=== PATIENT | male | born 1950 | race Caucasian/White ===

== ENCOUNTER 2019-03-06 16:06 | Inpatient (IN) | payer MEDICARE, OTHER ==
[2019-03-06] MEDS ORDERED: Acetaminophen TAB* 325 MG PO ONE (16:25)
[2019-03-06] MEDS ORDERED: NS 0.9% 1000 ML** 1,000 ML IV ONE (16:25)
--- NOTE | 2019-03-06 16:32 | ED ---
Lower Extremity - HPI Summary HPI Summary: This patient is a 68 year old male with a history of diabetes, osteomyelitis, diabetic foot ulcer, mitral valve replacement, who is presenting to [facility] with a chief complaint of erythema around a diabetic ulcer in the right foot. The patient has a Hx of osteomyelitis s/p right big toe amputation 5 years ago. The patient has had the diabetic ulcer over the right 2nd toe for years 3 years but today has not felt well and has a fever in addition to the erythema dorsal side of his foot. The patient saw his rhia who recommended he come here when hearing of the fever. The patient has a surgical Hx of mitral valve replacement. - History of Current Complaint Chief Complaint: EDFever Stated Complaint: RT FOOT ULCER PER PT Time Seen by Provider: 03/06/19 16:21 Hx Obtained From: Patient Onset of Pain: Hours Pain Intensity: 0 Pain Scale Used: 0-10 Numeric Associated Signs And Symptoms: Positive: Swelling, Redness - Allergies/Home Medications Allergies/Adverse Reactions: Allergies Allergy/AdvReac Type Severity Reaction Status Date / Time peanut Allergy Severe Anaphylatic Verified 03/06/19 16:19 Shock rivaroxaban [From Xarelto] Allergy Severe Anaphylatic Verified 03/06/19 16:19 Shock ciprofloxacin Allergy Intermediate Edema Verified 03/06/19 16:19 terazosin Allergy Intermediate Rash Verified 03/06/19 16:19 Iodinated Contrast- Oral and Allergy Unknown Unknown Verified 03/06/19 16:19 IV Dye Reaction Details ENVIRONMENTAL/SEASONAL Allergy Congestion Uncoded 03/06/19 16:19 PMH/Surg Hx/FS Hx/Imm Hx Endocrine/Hematology History: Reports: Hx Blood Transfusions, Hx Diabetes Denies: Hx Anemia Comment Only: Hx Anticoagulant Therapy - unknown Cardiovascular History: Reports: Hx Angioplasty - BILAT LEGS, Hx Cardiomegaly, Hx Coronary Artery Disease, Hx Hypercholesterolemia, Hx Hypertension, Hx Peripheral Vascular Disease, Hx Valvular Heart Disease - VALVE REPLACEMENT 2011 , Other Cardiovascular Problems/Disorders - aortic valve replacement with bioprosthetic mitral valve. Denies: Hx Aneurysm, Hx Angina, Hx Auto Implanted Cardiovert Defib, Hx Cardiac Arrest, Hx Congenital Heart Disease, Hx Congestive Heart Failure, Hx Deep Vein Thrombosis, Hx Embolism, Hx Pacemaker/ICD Respiratory History: Reports: Hx Asthma - as a child, Hx Pneumonia - 1998, Hx Seasonal Allergies Denies: Hx Chronic Obstructive Pulmonary Disease (COPD), Hx Pulmonary Edema, Hx Pulmonary Embolism, Hx Sleep Apnea, Other Respiratory Problems/Disorders GI History: Reports: Other GI Disorders - Perirectal abscess Denies: Hx Jaundice History: Reports: Hx Acute Renal Failure, Hx Dialysis - at [facility], Other Problems/Disorders - DENIES PROSTATE PROBLEMS Denies: Hx Benign Prostatic Hyperplasia, Hx Chronic Renal Failure, Hx Kidney Infection, Hx Kidney Stones Sensory History: Reports: Hx Cataracts, Hx Contacts or Glasses - READING, Hx Vision Problem - retinopathy, Other Sensory Impairments - Neuropathy Denies: Hx Hearing Aid Opthamlomology History: Reports: Hx Cataracts, Hx Contacts or Glasses - READING , Hx Vision Problem - retinopathy, Other Sensory Impairments - Neuropathy Neurological History: Reports: Hx Dementia Denies: Other Neuro Impairments/Disorders Psychiatric History: Reports: Hx Anxiety - CONTROL WITH MED, Hx Depression - CONTROL WITH MED, Hx Post Traumatic Stress Disorder Denies: Hx Panic Disorder - Surgical History Surgery Procedure, Year, and Place: MITRAL SEGURA PORCINE VALVE REPLACEMENT 1.5T ONLY(MRI) - November 2011 AND MAR 2014 - PACER WIRES REMOVED - NO PACE MAKER ANGIOPLASTY BILAT LEGS - 2009 Lt CAROTID - ANGIOPLASTY Hx Anesthesia Reactions: No - Immunization History Date of Tetanus Vaccine: unsure Date of Influenza Vaccine: 2011 Infectious Disease History: No Infectious Disease History: Reports: Hx of Known/Suspected MRSA - RIGHT TOE Denies: Hx Tuberculosis, Traveled Outside the [place] in Last 30 Days - Social History Alcohol Use: Daily Alcohol Amount: 2/3 beers Substance Use Type: Reports: None Smoking Status (MU): Former Smoker Type: Cigarettes Amount Used/How Often: QUIT 25 YRS Have You Smoked in the Last Year: No Review of Systems Positive: Fever Positive: Edema - 2nd right toe Positive: Other - Erythema over Diabetic ulcer 2nd right toe. All Other Systems Reviewed And Are Negative: Yes Physical Exam - Summary Physical Exam Summary: Constitutional: Well-developed, Well-nourished, Alert. (-) Distressed Skin: Warm, Dry. Erythema to the dorsum of the right foot near the MTPs, ulceration to the plantar surface of second MTP HENT: Normocephalic; Atraumatic Eyes: Conjunctiva normal Neck: Musculoskeletal ROM normal neck. (-) JVD, (-) Stridor, (-) Nuchal rigidity Cardio: Rhythm regular, rate normal, Heart sounds normal; Intact distal pulses; Radial pulses are 2+ and symmetric. Pulmonary/Chest wall: Effort normal. (-) Respiratory distress, (-) Wheezes, (-) Rales Abd: Soft, (-) tenderness, (-) Distension, (-) Guarding, (-) Rebound Musculoskeletal: Fusiform swelling of the right second toe Lymph: (-) Cervical adenopathy Neuro: Alert, Oriented x3 Psych: Mood and affect Normal Triage Information Reviewed: Yes Vital Signs On Initial Exam: Initial Vitals Temp Pulse Resp BP Pulse Ox 101 F 87 16 134/85 97 03/06/19 16:09 03/06/19 16:09 03/06/19 16:09 03/06/19 16:09 03/06/19 16:09 Vital Signs Reviewed: Yes Diagnostics - Vital Signs Vital Signs Temp Pulse Resp BP Pulse Ox 03/06/19 16:09 101 F 87 16 134/85 97 - Laboratory Result Diagrams: 03/06/19 16:43 03/06/19 16:43 Lab Statement: Any lab studies that have been ordered have been reviewed, and results considered in the medical decision making process. - Radiology Foot Right XR Radiology Interpretation Completed By: Radiologist Summary of Radiographic Findings: 1. No fracture or osseous destruction. 2. Subluxed second MTP as above. 3. Status post first toe amputation to the level fo the first metatarsal. 4. Vascular calcifications. ED Provider has reviewed this report. CXR Radiology Interpretation Completed By: Radiologist Summary of Radiographic Findings: 1. No acute cardiopulmoany process by radiograph. 2. Stable cardiac silhouette status post aVR. ED Provider has reviewed this report. Re-Evaluation - Re-Evaluation First Eval Re-Evaluation Time: 17:05 Comment: Labs notable for hemoglobin of 6.9 from 10 prior. Patient denies any complaints including bleeding, fatigue, dark stools. Will send type and screen. We'll hold off on transfusion at this time. Second Eval Comment: XR w subluxed 2nd toe, likely chronic. Lower Extremity Course/Dx - Course Course Of Treatment: 68-year-old male with a history of diabetes, osteomyelitis of the right great toe s/p amputation, diabetic foot ulcer, endocarditis and mitral valve replacement, who presents with fever and concern over cellulitis of the right foot. On arrival to the emergency department, patient febrile. Otherwise well appearing. Check labs including blood cultures, CRP, x-rays of the chest, and urinalysis to assess for infection. Patient will be started on vancomycin for skin coverage. Patient has high risk given his valve replacement - Diagnoses Provider Diagnoses: Cellulitis, Fever, Osteomyelitis Discharge - Sign-Out/Discharge Documenting (check all that apply): Patient Departure - Admission Patient Received Moderate/Deep Sedation with Procedure: No - Discharge Plan Condition: Stable Disposition: ADMITTED TO [facility] Referrals: Joseph Rhoades MD [Primary Care Provider] - - Billing Disposition and Condition Condition: STABLE Disposition: Admitted to [facility] - Attestation Statements Document Initiated by Margo: Yes Documenting Scribe: Aidan Cody Provider For Whom Margo is Documenting (Include Credential): Juan Carlos Carrizales MD Scribe Attestation: Aidan Rojas scribed for Juan Carlos Carrizales MD on 03/06/19 at 1737. Scribe Documentation Reviewed: Yes Provider Attestation: The documentation as recorded by the Aidan yeboah accurately reflects the service I personally performed and the decisions made by Juan Carlos trevino MD Status of Scribe Document: Viewed
[2019-03-06 16:54] LABS: Hematocrit 22 % (42-52); Hemoglobin 6.9 g/dL (14.0-18.0); Mean Corpuscular HGB Conc 32 g/dL (31-36); Mean Corpuscular Hemoglobin 22 pg (27-31); Mean Corpuscular Volume 71 fL (80-94); Platelet Count 180 10^3/uL (150-450); Red Blood Count 3.08 10^6 /uL (4.18-5.48); Red Cell Distribution Width 18 % (10-15); White Blood Count 10.2 10^3/uL (3.5-10.8)
[2019-03-06 17:08] LABS: ALT 17 U/L (7-52); AST 21 U/L (13-39); Albumin/Globulin Ratio 1.4 (1-3); Alkaline Phosphatase 76 U/L (34-104); Anion Gap 9 mmol/L (2-11); BUN/Creatinine Ratio 17.1 (8-20); Blood Urea Nitrogen 26 mg/dL (6-24); C Reactive Protein 84.66 mg/L (<8.01); CO2 Carbon Dioxide 20 mmol/L (22-32); Calcium 9.1 mg/dL (8.6-10.3); Chloride 107 mmol/L (101-111); EGFR African American 55.1 (>60); EGFR Non-African American 45.6 (>60); Globulin 2.9 g/dL (2-4); Glucose 115 mg/dL (70-100); Potassium 4.1 mmol/L (3.5-5.0); Sodium 136 mmol/L (135-145); Total Protein 6.9 g/dL (6.4-8.9)
[2019-03-06 17:24] LABS: ABS Lymphocytes 0.9 10^3/ul (1.0-4.8); ABS Monocytes 0.9 10^3/ul (0-0.8); ABS Neutrophils 8.4 10^3/ul (1.5-7.7); Lymphocyte % 8.4 %; Microcytosis 1+; Tear Drop Cells 1+
[2019-03-06 18:10] LABS: INR 2.71 (0.82-1.09)
[2019-03-06] MEDS ORDERED: Piperacillin/Tazobac ADVAN(*) 3.375 GM in NS 0.9% 100 ML* 100 ML IVPB ONE (18:20)
[2019-03-06] MEDS ORDERED: Thiamine INJ* 100 MG/ML 2 ML VIAL IM ONE (18:25)
[2019-03-06] MEDS ORDERED: Vancomycin(*) 1,000 MG - ED ONCE IVPB STA ×2 (18:41)
[2019-03-06 18:53] LABS: Urine Appearance Clear; Urine Bacteria Absent (Absent); Urine Bilirubin Negative (Negative); Urine Blood Negative (Negative); Urine Color Yellow; Urine Glucose Negative (Negative); Urine Ketones Negative (Negative); Urine Nitrite Negative (Negative); Urine Protein 1+(30 mg/dL) (Negative); Urine Red Blood Cell Absent (Absent); Urine Specific Gravity 1.013 (1.010-1.030); Urine Urobilinogen Negative (Negative); Urine White Blood Cell Trace(0-5/hpf) (Absent)
[2019-03-06] MEDS ORDERED: Zosyn per Pharmacy* NOTE FOLLOW UP SCH (19:00)
[2019-03-06] MEDS ORDERED: Vancomycin per Pharmacy* NOTE FOLLOW UP SCH (19:00)
[2019-03-06] MEDS ORDERED: LORazepam TAB(*) 1 MG PO SCH (19:00)
[2019-03-06 19:02] LABS: % Iron Saturation 4 % (15-55); Iron 20 ug/dL (50-212); Total Iron Binding Capacity 465 mcg/dL (250-450); Transferrin 332 mg/dL (203-362)
[2019-03-06 19:24] LABS: Ferritin 8.5 ng/mL (24-336)
[2019-03-06 19:28] LABS: Folate > 20.00 ng/mL (>3.99)
[2019-03-06] MEDS: Folic Acid TAB* 1 MG PO SCH (20:28)
--- NOTE | 2019-03-06 20:33 | HP ---
CC: Dr. Rhoades; Dr. Covarrubias * HISTORY AND PHYSICAL: DATE OF ADMISSION: 03/06/19 PROVIDER: Vanessa Diaz NP. PRIMARY CARE PROVIDER: Dr. Rhoades. ATTENDING PHYSICIAN WHILE IN THE HOSPITAL: Dr. Foster * (dictated by Vanessa Diaz NP). CHIEF COMPLAINT: 1. Fever. 2. Right foot pain. HISTORY OF PRESENT ILLNESS: Mr. Golden is a 68-year-old male with a past medical history significant for type 2 diabetes, hyperlipidemia, hypertension, depression, obesity, history of atrial fibrillation, history of osteomyelitis on the right great toe, anemia, history of left CVA, history of endocarditis, and history of GI bleed from Xarelto who presented to the emergency room with complaints of increased pain in the right foot that he reports started yesterday and fevers that started this morning. The patient reports that he was feeling in his usual state of health and today he had 2 beers to drink and felt fatigued, so he returned home stating that he just did not feel well. He had an open ulceration noted to the right foot that has been chronic for him for several years for which he follows with a demographic analyst as an outpatient. He saw his demographic analyst today who recommended he come to the emergency room for further evaluation due to increased pain, erythema to the right foot. While in the emergency room, the patient had routine lab work drawn. He was found to have a fever of 101 and hemoglobin and hematocrit of 6.9 and 22. Due to these findings, we were asked to see and evaluate the patient for admission. PAST MEDICAL HISTORY: Significant for: 1. Type 2 diabetes. 2. Neuropathy. 3. Hyperlipidemia. 4. Hypertension. 5. Depression. 6. Diabetes. 7. Peripheral vascular disease. 8. History of anemia. 9. History of left-sided CVA. 10. History of atrial fibrillation, status post cardioversion x2. 11. History of osteomyelitis to the right great toe, status post amputation. 12. History of GI bleed from Xarelto. PAST SURGICAL HISTORY: 1. Mitral valve repair. 2. Removal of infected pacer wires. 3. Carotid endarterectomy. 4. Tonsillectomy. 5. Right great toe amputation. HOME MEDICATIONS: 1. Ferrous sulfate 65 mg p.o. q.p.m. 2. Tamsulosin 0.4 q.p.m. 3. Sertraline 150 mg p.o. q.a.m. 4. Pantoprazole 40 mg p.o. q.a.m. 5. Magnesium oxide 400 mg p.o. b.i.d. 6. Warfarin 5 mg Friday, Friday, Friday, and Friday. 7. Lisinopril 10 mg p.o. q.p.m. 8. Atorvastatin 20 mg p.o. q.p.m. 9. Ascorbic acid 500 mg p.o. q.p.m. ALLERGIES: Allergy to PEANUTS, XARELTO, CIPROFLOXACIN, TERAZOSIN, IV CONTRAST, ENVIRONMENTAL ALLERGIES. FAMILY HISTORY: Father at the age of 92 from CHF. Mother is alive at the age of 93 with no significant medical history. Father with diabetes. Sister with lung cancer. SOCIAL HISTORY: The patient denies any tobacco use. He does report drinking 8 beers per day. Denies any illicit drug use. He is . He lives with his . Surrogate decision maker in the event he is unable to make his own decisions is his . He is a full code. He does ambulate with a cane. REVIEW OF SYSTEMS: He does report fever. Denies any unintended weight loss. Denies any chest pain or edema. Denies any cough or hemoptysis. He does report shortness of breath with exertion x1 month and increased fatigue. Denies any nausea, vomiting, diarrhea, or abdominal pain. Denies any black tarry stools. Denies any vomiting of blood. Denies any gross hematuria or dysuria. Denies any weakness, sensory loss, visual complaints, dysphagia, arthralgias, myalgias. He does report a chronic diabetic ulcer to the right plantar aspect of his foot at the base of the second toe. Denies any psychosis or anxiety. PHYSICAL EXAMINATION GENERAL: At this time, Mr. Golden is alert and oriented, he is well-developed, well- nourished male, resting on the stretcher in the emergency room. He is in no acute distress. VITAL SIGNS: Temp is 100.0, pulse is 80, respirations 16, O2 saturation 100% on room air, blood pressure 134/85. HEENT: Head is atraumatic and normocephalic. Eyes: EOMs are intact. Sclerae anicteric and not pale. Oral mucosa appears to be moist. Face is flushed. NECK: Supple. LUNGS: Clear to auscultation bilaterally. No wheezes, rales, or rhonchi. CARDIAC: S1, S2. Regular rate and rhythm. ABDOMEN: Obese, soft, nontender. Bowel sounds are present x4. EXTREMITIES: He is able to move all 4 extremities. There is no clubbing or cyanosis. There is no edema. SKIN: He does have a small ulceration noted to the plantar aspect of the right foot at the base of the great toe without drainage. Surrounding skin with erythema and mild erythema noted to the right lower leg. DIAGNOSTIC STUDIES/LAB DATA: WBCs are 10.2, RBCs 3.08, hemoglobin 6.9, hematocrit was 22, platelet count was 180. INR was 2.71. Sodium 136, potassium 4.1, chloride 107, carbon dioxide was 20, anion gap was 9, BUN was 26 , creatinine 1.52, lactic acid was 1.0, glucose 115, calcium 9.1. ASTs were 21 , ALTs were 17, alkaline phosphatase was 76. C-reactive protein was 84.66. He had a chest x-ray, radiologist's impression: No acute cardiopulmonary process. Stable cardiac silhouette, status post valve replacement. He had a right foot x- ray, no fracture or osseous destruction, subluxed second MTP, status post first toe amputation at the level of the first metatarsal, vascular calcification. ASSESSMENT AND PLAN: Mr. Golden is a 68-year-old male with a past medical history significant for type 2 diabetes; neuropathy; hypertension; hyperlipidemia; depression; obesity; peripheral vascular disease; history of anemia; history of atrial fib, status post cardioversion; left-sided cerebrovascular accident; history of osteomyelitis, status post right great toe amputation; history of GI bleed from Xarelto, who presented with fever and cellulitis to his right foot and lower leg. He will be admitted inpatient for: 1. Cellulitis. The patient was given vancomycin in the emergency room. I will continue vancomycin and add Zosyn as per pharmacy dosing. Blood cultures are currently pending. I will also get a wound culture. He was febrile on admission to the emergency room with a temperature of 101. We will continue to monitor his fever throughout the hospitalization and treat as needed with Tylenol. May need to consider MRI of the right foot as this has been a nonhealing ulcer for approximately 2 years. If he does have osteomyelitis, we will need to consider consult from Orthopedics and Infectious disease. 2. Anemia. The patient does have a history of anemia. I will add iron, TIBC, ferritin, folate, and B12 to his current lab work, which is currently pending. I will get a stool for occult to look for acute source of bleeding. I am going to hold his Coumadin this evening due to his H and H being 6.9 and 22. We will continue to monitor. I will give him 1 unit of packed red blood cells he does have a history of mitral valve replacement, atrial fibrillation, and has been symptomatic with shortness of breath with exertion and increased fatigue. 3. Hypertension. We will continue lisinopril 10 mg p.o. daily. 4. Hyperlipidemia. We will continue 20 mg of atorvastatin as previously prescribed. 5. Gastroesophageal reflux disease. He will continue on pantoprazole 40 mg p.o. q.a.m. 6. Depression. He will continue on sertraline 150 mg p.o. q.a.m. 7. Chronic kidney disease. We will continue to monitor his BUN and creatinine , he is at baseline since 2013 with a creatinine of 1.52. We will avoid further nephrotoxic medications. 8. FEN. He can have a heart-healthy, caffeine okay diet. 9. Code status. He is a full code. 10. DVT prophylaxis. The patient does take Coumadin. I will hold Coumadin in this evening as the patient does have an H and H of 6.9 and 22 and concern for bleeding. 11. Alcohol abuse. The patient does report drinking 8 [address] him on [facility] protocol. He will also continue with folic acid, vitamin B12 and a multivitamin and can have Ativan p.o. as needed for withdrawal symptoms. TIME SPENT: Time spent on this admission was approximately 60 minutes, greater than half that time was spent at the bedside reviewing the events leading thus far to this hospitalization, performing the physical exam, and reviewing my plan of care. I have discussed this with my attending, Dr. Foster; she is in agreement with my plan. VANESSA DIAZ, CENTRAL SERVICE TECHNICIAN [id number]/[facility] #: [id number] CINDI
[2019-03-06] MEDS: ZOSYN 3.375 GM Q8H per EXTENDED INFUSION IVPB SCH ×2 (23:58)
--- NOTE | 2019-03-07 02:58 | PN ---
Hospitalist Progress Note Date of Service: 03/07/19 HOSPITALIST ADDENDUM Called by RN because patient had 8 beats of Vtach, asymptomatic. Electrolytes were normal on admission. Will continue to monitor on Telemetry.
[2019-03-07 07:41] LABS: INR 2.56 (0.82-1.09)
[2019-03-07 07:45] LABS: Hematocrit 20 % (42-52); Hemoglobin 6.4 g/dL (14.0-18.0); Mean Corpuscular HGB Conc 32 g/dL (31-36); Mean Corpuscular Hemoglobin 23 pg (27-31); Mean Corpuscular Volume 72 fL (80-94); Mean Platelet Volume 7.9 fL (7.4-10.4); Platelet Count 166 10^3/uL (150-450); Red Blood Count 2.82 10^6 /uL (4.18-5.48); Red Cell Distribution Width 18 % (10-15); White Blood Count 8.6 10^3/uL (3.5-10.8)
[2019-03-07 07:55] LABS: BUN/Creatinine Ratio 17.2 (8-20); Calcium 8.7 mg/dL (8.6-10.3); EGFR African American 58.2 (>60); EGFR Non-African American 48.1 (>60); Magnesium 1.7 mg/dL (1.9-2.7)
[2019-03-07 08:04] LABS: ABS Lymphocytes 0.9 10^3/ul (1.0-4.8); ABS Monocytes 0.9 10^3/ul (0-0.8); ABS Neutrophils 6.7 10^3/ul (1.5-7.7); Eosinophil % 0.1 %; Lymphocyte % 10.2 %
[2019-03-07] MEDS: Multivitamins/Minerals TAB PO SCH (08:18)
[2019-03-07] MEDS: Folic Acid TAB* 1 MG PO SCH (08:18)
[2019-03-07] MEDS: Magnesium Oxide TAB* 400 MG PO SCH ×2 (08:18→21:37)
[2019-03-07] MEDS: Thiamine TAB* 100 MG TAB PO SCH (08:18)
[2019-03-07] MEDS: Pantoprazole TAB * 40 MG TAB PO SCH (08:19)
[2019-03-07] MEDS: Vancomycin(*) 1,000 MG in NS 0.9% 250 ML* 250 ML IVPB SCH ×2 (08:19→21:39)
[2019-03-07] MEDS: Sertraline* 50 MG TAB PO SCH (08:19)
[2019-03-07] MEDS: ZOSYN 3.375 GM Q8H per EXTENDED INFUSION IVPB SCH ×6 (08:26→19:43)
[2019-03-07 08:56] LABS: Hematocrit for Retic CNT 21 % (42-52); Immature Retic Fraction 0.51; RBC Retic Count 2.84 10^6/uL (4.18-5.48)
[2019-03-07] MEDS ORDERED: Magnesium Sulfate 2 GM IV* 2 GM/50 ML BAG IVPB ONE (10:52)
[2019-03-07] MEDS: Dronedarone TAB* 400 MG PO SCH ×2 (12:35→21:37)
[2019-03-07] MEDS: Warfarin TAB(*) 5 MG PO SCH (16:29)
[2019-03-07] MEDS ORDERED: Warfarin TAB(*) 2.5 MG PO SCH (17:00)
[2019-03-07] MEDS: Atorvastatin* 20 MG TAB PO SCH (17:50)
[2019-03-07] MEDS: Tamsulosin CAP* 0.4 MG PO SCH (17:50)
[2019-03-07] MEDS: Lisinopril TAB* 10 MG PO SCH (17:50)
[2019-03-08] MEDS: ZOSYN 3.375 GM Q8H per EXTENDED INFUSION IVPB SCH ×6 (02:25→17:18)
[2019-03-08 05:24] LABS: INR 2.12 (0.82-1.09)
[2019-03-08 05:28] LABS: ABS Eosinophils 0.1 10^3/ul (0-0.6); ABS Lymphocytes 0.8 10^3/ul (1.0-4.8); ABS Monocytes 0.8 10^3/ul (0-0.8); Eosinophil % 0.6 %; Hematocrit 26 % (42-52); Hemoglobin 8.1 g/dL (14.0-18.0); Lymphocyte % 9.5 %; Mean Corpuscular HGB Conc 32 g/dL (31-36); Mean Corpuscular Hemoglobin 23 pg (27-31); Mean Corpuscular Volume 74 fL (80-94); Mean Platelet Volume 8.3 fL (7.4-10.4); Platelet Count 165 10^3/uL (150-450); Red Blood Count 3.47 10^6 /uL (4.18-5.48); Red Cell Distribution Width 19 % (10-15); White Blood Count 8.7 10^3/uL (3.5-10.8)
[2019-03-08 05:38] LABS: BUN/Creatinine Ratio 15.9 (8-20); C Reactive Protein 130.02 mg/L (<8.01); Calcium 8.9 mg/dL (8.6-10.3); EGFR African American 61.6 (>60); EGFR Non-African American 50.9 (>60); Potassium 4.1 mmol/L (3.5-5.0)
[2019-03-08] MEDS ORDERED: Vancomycin Trough Check NOTE FOLLOW UP ONE (08:30)
--- NOTE | 2019-03-08 08:58 | PN ---
Subjective - Subjective Reason for Note: Progress Note History: Henrique Paniagua presented with acute cellulitis right foot, acute iron deficient anemia. He has received x 2 PRBCs and is on parenteral antibacterials - vancomycin and zosyn. He tolerated the tranfusion. He had an episode of 8 beats of non-sustained VT. He is feeling fine this morning. He denies any pain, fevers or other symptoms. 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 Diabetic retinopathy (Chronic) E11.319 Essential hypertension (Chronic) I10 History of SBE (subacute bacterial endocarditis) (Chronic) Z86.79 Hyperlipidemia (Chronic) E78.5 Mitral valve replacement xenograft (Chronic) Peripheral vascular disease (Chronic) I73.9 Current Medications: Current Medications Acetaminophen (Tylenol Tab*) 650 mg PO Q4H PRN PRN Reason: FEVER/PAIN Ascorbic Acid (Vitamin C Tab*) 250 mg PO EVERY OTHER DAY [facility] Atorvastatin Calcium (Lipitor*) 20 mg PO QPM [facility] Last Admin: 03/07/19 17:50 Dose: 20 mg Dronedarone (Multaq Tab*) 400 mg PO BID WITH MEALS [facility] Last Admin: 03/07/19 21:37 Dose: 400 mg Ferrous Sulfate (Ferrous Sulfate Tab*) 325 mg PO EVERY OTHER DAY [facility] Folic Acid (Folvite Tab*) 1 mg PO DAILY [facility] Last Admin: 03/07/19 08:18 Dose: 1 mg Vancomycin HCl 1,000 mg/ (Sodium Chloride) 250 mls @ 166.667 mls/hr IVPB Q12H [facility] Last Admin: 03/07/19 21:39 Dose: 166.667 mls/hr Piperacillin Sod/Tazobactam (Sod 3.375 gm/ Sodium Chloride) 100 mls @ 25 mls/ hr IVPB Q8H [facility] Last Admin: 03/08/19 02:25 Dose: 25 mls/hr Lisinopril (Prinivil Tab*) 10 mg PO QPM [facility] Last Admin: 03/07/19 17:50 Dose: 10 mg Lorazepam (Ativan Tab(*)) 0 - 6 mg PO .PER [facility] PROTOCOL [facility]; Protocol Magnesium Oxide (Magox 400 Tab*) 400 mg PO BID [facility] Last Admin: 03/07/19 21:37 Dose: 400 mg Multivitamins/Minerals (Theragran/Minerals Tab*) 1 tab PO DAILY [facility] Last Admin: 03/07/19 08:18 Dose: 1 tab Pantoprazole Sodium (Protonix Tab*) 40 mg PO QAM [facility] Last Admin: 03/07/19 08:19 Dose: 40 mg Pharmacy Consult (Vancomycin Per Pharmacy*) 1 note FOLLOW UP .VANC PER PHARMACY [facility]; Protocol Pharmacy Consult (Zosyn Per Pharmacy*) 1 note FOLLOW UP .ZOSYN PER PHARMACY [facility] Sertraline HCl (Zoloft*) [facility] [place] [facility] Last Admin: 03/07/19 08:19 Dose: 150 mg Tamsulosin HCl (Flomax Cap*) 0.4 mg PO QPM [facility] Last Admin: 03/07/19 17:50 Dose: 0.4 mg Thiamine HCl (Vitamin B-1 Tab*) 100 mg PO DAILY [facility] Last Admin: 03/07/19 08:18 Dose: 100 mg Warfarin Sodium (Coumadin Tab(*)) 5 mg PO [id number]@1700 [facility]; Protocol Last Admin: 03/07/19 16:29 Dose: Not Given Warfarin Sodium (Coumadin Tab(*)) 2.5 mg PO [email or web address] [facility] Last Admin: 03/07/19 17:50 Dose: 2.5 mg Home Medications: Home Medications Medication Instructions Recorded Confirmed Type Lisinopril 10 mg PO QPM 04/09/13 03/06/19 History Pantoprazole TAB * [Protonix TAB 40 mg PO QAM 04/09/13 03/06/19 History (NF)] Sertraline HCl 150 mg PO QAM 04/09/13 03/06/19 History Atorvastatin* [Lipitor 40 MG*] 20 mg PO QPM 07/21/13 03/06/19 History Ascorbic Acid TAB* [Vitamin C 500 mg PO QPM 01/22/14 03/06/19 History TAB*] Ferrous Sulfate [Iron] 65 mg PO QPM 08/03/14 03/06/19 History Magnesium Oxide [Magnesium Oxide-] 400 mg PO BID 08/03/14 03/06/19 History Tamsulosin CAP* [Flomax CAP*] 0.4 mg PO QPM 08/03/14 03/06/19 History Warfarin Sodium 5 mg PO SUTUWEFR 08/03/14 03/06/19 History Allergies: Allergies Allergy/AdvReac Type Severity Reaction Status Date / Time peanut Allergy Severe Anaphylatic Verified 03/06/19 16:19 Shock rivaroxaban [From Xarelto] Allergy Severe Anaphylatic Verified 03/06/19 16:19 Shock ciprofloxacin Allergy Intermediate Edema Verified 03/06/19 16:19 terazosin Allergy Intermediate Rash Verified 03/06/19 16:19 Iodinated Contrast- Oral and Allergy Unknown Unknown Verified 03/06/19 16:19 IV Dye Reaction Details ENVIRONMENTAL/SEASONAL Allergy Congestion Uncoded 03/06/19 16:19 Objective - Vital Signs Vital Signs: Vital Signs 03/07/19 03/07/19 03/07/19 10:00 12:00 14:00 Temperature 97.6 F 98.6 F 98.7 F Pulse Rate 88 76 73 Respiratory 30 20 26 Rate Blood Pressure 154/48 150/50 134/37 (mmHg) O2 Sat by Pulse 100 100 99 Oximetry 03/07/19 03/07/19 03/07/19 16:00 18:30 19:50 Temperature 98 F 98.9 F 98.1 F Pulse Rate 73 70 70 Respiratory 16 24 20 Rate Blood Pressure 154/55 147/63 153/43 (mmHg) O2 Sat by Pulse 98 100 98 Oximetry 03/07/19 03/07/19 03/07/19 20:00 22:00 23:00 Temperature 98.6 F 98.7 F 98.3 F Pulse Rate 71 70 70 Respiratory 20 24 20 Rate Blood Pressure 150/45 155/46 137/45 (mmHg) O2 Sat by Pulse 99 98 97 Oximetry 03/08/19 03/08/19 03/08/19 02:59 07:14 07:25 Temperature 97.0 F 98 F Pulse Rate 67 77 Respiratory 16 20 Rate Blood Pressure 155/49 176/55 150/56 (mmHg) O2 Sat by Pulse 97 99 Oximetry 03/08/19 07:31 Temperature Pulse Rate Respiratory 20 Rate Blood Pressure (mmHg) O2 Sat by Pulse Oximetry - Intake and Output Intake and Output: Intake & Output 03/05/19 03/06/19 03/07/19 03/08/19 11:59 11:59 11:59 11:59 Intake Total 950 3415 Balance 950 3415 Weight 195 lb 1.6 oz Intake: IV Fluids 964 ABX - VANCOMYCIN 250 ABX - ZOSYN 100 PRBC 614 IVPB 350 651 ABX - VANCOMYCIN 250 250 ABX - ZOSYN 100 100 PRBC 301 Oral 600 1800 Other: Estimated Void Small Medium # Bowel Movements 1 1 Estimated Stool Amount Small Large # Voids 4 0 ADLs: Meal Record Start: 03/06/19 19: 20 Freq: DAILY@0900,1400,1800 Status: Active Protocol: Created 03/06/19 19:20 System (Rec: 03/06/19 19:20 System MED-M19) Document 03/07/19 09:00 [id number] (Rec: 03/07/19 16:07 [id number] MED-C09) Document 03/07/19 14:00 [id number] (Rec: 03/07/19 16:09 [id number] MED-C09) Document 03/07/19 18:00 [id number] (Rec: 03/07/19 20:57 [id number] MED-C07) Intake and Output Start: 03/06/19 16: 11 Freq: Status: Active Protocol: Created 03/06/19 16:11 System (Rec: 03/06/19 16:11 System ED-C24) Intake and Output Start: 03/06/19 19: 20 Freq: DAILY@0600,1400,2200 Status: Active Protocol: Created 03/06/19 19:20 System (Rec: 03/06/19 19:20 System MED-M19) Document 03/07/19 05:59 [id number] (Rec: 03/07/19 06:01 [id number] MED-C09) Document 03/07/19 14:00 [id number] (Rec: 03/07/19 16:09 [id number] MED-C09) Document 03/07/19 22:00 [id number] (Rec: 03/07/19 22:34 [id number] MED-C07) Document 03/08/19 05:51 [id number] (Rec: 03/08/19 05:52 [id number] MED-C09) Document 03/08/19 07:27 [id number] (Rec: 03/08/19 07:27 [id number] MED-M22) - Physical Exam General Physical Exam Comment: He is warm and well perfused. He is hemodynamically stable. He has no stigmata of infective endocarditis - he has one distal splinter hemorrhage right 4th finger nail - looks old. He has no Osler nodes or Lowe spots. Right foot - great toe amputated. He has erythema and swelling 2nd toe. The cellulitis has receeded from the inked margin. He has eschar and callous over the 2nd metatarsal head - this may be covering an ulcer. General: No Cyanosis, Yes Anemia, No Jaundice, No Clubbing Skin: Normal: Rash Lungs and Chest: Yes: Chest Expansion Full, Chest Expansion Symetrica, Percussion Note Resonant, Vessicular Breath Sounds. No: Crackles, Wheezes Heart Rate and Rhythm: Regular JVP: Not Elevated Additional Cardiovascular: Yes: Normal Heart Sounds. No: Heart Murmur - S3, Pedal Edema Abdominal Exam: Yes: Soft, Bowel Sounds Present. No: Distention, Abdominal Mass , Hepatomegaly, Abdominal Tenderness, Guarding, Rebound Tenderness - Extremities Cranial Nerves II-XII Intact: Yes Limbs: Normal Power, Normal Tone Results - Results Lab Results: Laboratory Results - last 24 hr 03/06/19 03/07/19 03/07/19 16:43 07:28 07:28 WBC 8.6 RBC 2.82 L RBC (Retic) 2.84 L Hgb 6.4 L* Hct 20 L HCT (Retic) 21 L MCV 72 L MCH 23 L MCHC 32 RDW 18 H Plt Count 166 MPV 7.9 Neut % (Auto) 78.2 Lymph % (Auto) 10.2 [place] % (Auto) 11.0 Eos % (Auto) 0.1 Baso % (Auto) 0.5 Absolute Neuts (auto) 6.7 Absolute Lymphs (auto) 0.9 L Absolute Monos (auto) 0.9 H Absolute Eos (auto) 0.0 Absolute Basos (auto) 0.0 Absolute Nucleated RBC 0.0 Nucleated RBC % 0.0 Retic Count, Calc 2.1 H Corrected Retic Count 1.0 Retic Shift Factor 2.0 Retic Production Index 0.50 Immature Retic Fraction 0.51 Mean Retic Volume 100.6 INR (Anticoag Therapy) Sodium Potassium Chloride Carbon Dioxide Anion Gap BUN Creatinine Est GFR ( Amer) Est GFR (Non-Af Amer) BUN/Creatinine Ratio Glucose Hemoglobin A1c 7.2 H Calcium C-Reactive Protein Blood Type O Positive Antibody Screen Negative Crossmatch See Detail 03/08/19 03/08/19 03/08/19 04:44 04:44 04:44 WBC 8.7 RBC 3.47 L RBC (Retic) Hgb 8.1 L Hct 26 L HCT (Retic) MCV 74 L MCH 23 L MCHC 32 RDW 19 H Plt Count 165 MPV 8.3 Neut % (Auto) 80.3 Lymph % (Auto) 9.5 [place] % (Auto) 9.2 Eos % (Auto) 0.6 Baso % (Auto) 0.4 Absolute Neuts (auto) 7.0 Absolute Lymphs (auto) 0.8 L Absolute Monos (auto) 0.8 Absolute Eos (auto) 0.1 Absolute Basos (auto) 0.0 Absolute Nucleated RBC 0.0 Nucleated RBC % 0.0 Retic Count, Calc Corrected Retic Count Retic Shift Factor Retic Production Index Immature Retic Fraction Mean Retic Volume INR (Anticoag Therapy) 2.12 H Sodium 140 Potassium 4.1 Chloride 111 Carbon Dioxide 22 Anion Gap 7 BUN 22 Creatinine 1.38 H Est GFR ( Amer) 61.6 Est GFR (Non-Af Amer) 50.9 BUN/Creatinine Ratio 15.9 Glucose 156 H Hemoglobin A1c Calcium 8.9 C-Reactive Protein 130.02 H Blood Type Antibody Screen Crossmatch Radiology Results: Patient Name: HENRIQUE PANIAGUA Medical Record#: [id number] Ordering Physician: Juan Carlos Carrizales MD Acct.#: [id number] : 1950 Age: 68 Sex: M Location: EMERGENCY DEPARTMENT Exam Date: 03/06/19 1635 ADM Status: REG ER Order Information: FOOT RIGHT 3+ VWS Accession Number: [id number] CPT: 67596 INDICATION: Fever. Remote right first toe amputation.. TECHNIQUE: 3 views of the right foot were obtained. FINDINGS: Postoperative changes are related to amputation of the first right toe to the level of the mid first metatarsal. Aside from vascular calcifications, the soft tissues are grossly unremarkable. The bones are osteopenic. No acute fracture or osseous destruction is identified. There is a calcaneal plantar enthesophyte. The second metatarsophalangeal joint is subluxed with dorsal displacement of the proximal phalanx. IMPRESSION: 1. No fracture or osseous destruction. 2. Subluxed second MTP as above. 3. Status post first toe amputation to the level of the first metatarsal. 4. Vascular calcifications. <Electronically signed by Tyree Muro MD in [place]> 03/06/191725 Dictated By: Tyree Muro MD Dictated Date/Time: 03/06/191725 Transcribed Date/Time: 03/06/191718 Copy to: Patient Name: HENRIQUE PANIAGUA Medical Record#: [id number] Ordering Physician: Juan Carlos Carrizales MD Acct.#: [id number] : 1950 Age: 68 Sex: M Location: EMERGENCY DEPARTMENT Exam Date: 03/06/191624 ADM Status: REG ER Order Information: CHEST PA & LAT 2 VWS Accession Number: [id number] CPT: 60686 INDICATION: Fever COMPARISON: October 17, 2015 chest radiograph TECHNIQUE: Dual-energy PA and lateral views of the chest were obtained. FINDINGS: The lungs are clear. There is no pleural effusion. The cardiomediastinal silhouette is within normal limits status post midline sternotomy and aVR. The upper abdominal contents are normal. Osseous structures are unremarkable. IMPRESSION: 1. No acute cardiopulmonary process by radiograph. 2. Stable cardiac silhouette status post aVR. <Electronically signed by Tyree Muro MD in [place]> 03/06/191718 Dictated By: Tyree Muro MD Dictated Date/Time: 03/06/191718 Transcribed Date/Time: 03/06/191715 Copy to: CC:Joseph Rhoades MD; Juan Carlos Carrizales MD Imaging - [facility] Imaging - [facility] Imaging - [facility] [address] [place] [id number] ph [phone] ph ([phone]) ph ([phone]) Assessment - Problem List Assessment: Patient Problems Cellulitis of foot, right (Acute) Non-sustained ventricular tachycardia (Acute) Alcohol dependence (Chronic) Atrial fibrillation (Chronic) Cerebrovascular disease (Chronic) Depressive disorder (Chronic) Diabetes mellitus type 2 (Chronic) Diabetic foot ulcer (Chronic) Diabetic peripheral neuropathy (Chronic) Diabetic renal disease (Chronic) Diabetic retinopathy (Chronic) Essential hypertension (Chronic) History of SBE (subacute bacterial endocarditis) (Chronic) Hyperlipidemia (Chronic) Mitral valve replacement xenograft (Chronic) Peripheral vascular disease (Chronic) Plan: Cellulitis of foot, right (Acute) This appears to be improving - the CRP lags behind the clinical improvement. Dr. Amelie Colin ordered an MRI to rule out osteomyelitis. There is a concern with his prior history of infective endocarditis that this may be a complicating problem. However, after 24 hours his blood cultures are negative. He has no physical signs of infective endocarditis. Non-sustained ventricular tachycardia (Acute) This was a single episode. I will discontinue his telemetry monitoring and watch his electrolytes. I will check a 12 lead EKG Alcohol dependence (Chronic) ongoing issue - I am concerned to watch for withdrawal Atrial fibrillation (Chronic) For EKG - the telemetry looks regular. anemia: He has received transfusion - this is iron deficiency. Secondary diagnoses Cerebrovascular disease (Chronic) Depressive disorder (Chronic) Diabetes mellitus type 2 (Chronic) Diabetic foot ulcer (Chronic) Diabetic peripheral neuropathy (Chronic) Diabetic renal disease (Chronic) Diabetic retinopathy (Chronic) Essential hypertension (Chronic) History of SBE (subacute bacterial endocarditis) (Chronic) Hyperlipidemia (Chronic) Mitral valve replacement xenograft (Chronic) Peripheral vascular disease (Chronic) He requires further antibacterial therapy. I explained the above to the patient.
[2019-03-08] MEDS: Pantoprazole TAB * 40 MG TAB PO SCH (10:59)
[2019-03-08] MEDS: Thiamine TAB* 100 MG TAB PO SCH (10:59)
[2019-03-08] MEDS: Magnesium Oxide TAB* 400 MG PO SCH ×2 (10:59→21:16)
[2019-03-08] MEDS: Vancomycin(*) 1,000 MG in NS 0.9% 250 ML* 250 ML IVPB SCH (10:59)
[2019-03-08] MEDS: Sertraline* 50 MG TAB PO SCH (10:59)
[2019-03-08] MEDS: Multivitamins/Minerals TAB PO SCH (10:59)
[2019-03-08] MEDS: Folic Acid TAB* 1 MG PO SCH (10:59)
[2019-03-08] MEDS: Dronedarone TAB* 400 MG PO SCH ×2 (10:59→17:17)
[2019-03-08] MEDS ORDERED: Perflutren Lipid Microsphere* 3 ML VIAL ONE (11:37)
--- NOTE | 2019-03-08 14:02 | ECHO ---
*[facility]* [place] [address] Fax #: [phone] Transthoracic Echocardiogram Patient: Henrique Golden : 1950 Study Date: 03/08/2019 Age: 68 Gender: M HR: 71 bpm Height: 67 in /170.2 cm BSA: 2 m^2 Weight: 194.6 lb /88.5 kg BMI: 30.5 kg/m^2 *[employer]working Machine Feeder: Blanca Rinaldi [facility] *Referring Physician: * Joseph Rhoades *Reading Physician: * Edinson Fabian MD Indications: Mitral Valve Disorders. History: Prior cerebrovascular accident, s/p porcine Mitral Valve replacement 2011 #27 ,PVD,anemia. Risk factors: Hypertension. Diabetes mellitus. Dyslipidemia. Conclusions Summary: - Left ventricle: The cavity size is normal. Wall thickness is at the upper limits of normal. Systolic function is at the lower limits of normal. The estimated ejection fraction is 50-55%. - Ventricular septum: Ventricular septal wall motion has a postoperative appearance. - Left atrium: The atrium is mildly dilated. - Mitral valve: There is a bioprosthesis. The leaflets are not seen well enough to exclude endocarditis. The velocity/gradient profile is unchanged from 04/2013 echocardiogram suggesting no change in valve function or stenosis. There is trace regurgitation. The peak E-wave velocity is 2.07 m/sec. The pressure half-time is 90 ms. The mean diastolic gradient is 7.0 mm Hg. - Pulmonary arteries: Systolic pressure is mildly to moderately increased. Recommendations: Compared to prior study from 04/2016, no clinically significant changes noted. Study data: Transthoracic echocardiogram. Procedure: Transthoracic echocardiography was performed. Image quality was adequate. The study was technically limited due to body habitus. Intravenous Definity , 3 mlswas administered. Complete 2D, spectral Doppler, and color flow Doppler. Patient status: Inpatient. Patient room number: 414-2. Rhythm: Normal sinus rhythm. Findings Left ventricle: The cavity size is normal. Wall thickness is at the upper limits of normal. Systolic function is at the lower limits of normal. The estimated ejection fraction is 50-55%. Wall motion is normal; there are no regional wall motion abnormalities. Left ventricular diastolic function parameters are indeterminate. Right ventricle: Not well visualized. The cavity size is normal. Wall thickness is normal. Systolic function is normal. Ventricular septum: Well visualized. Ventricular septal wall motion has a postoperative appearance. Left atrium: Well visualized. The atrium is mildly dilated. Right atrium: Well visualized. The atrium is normal in size. Atrial septum: Not well visualized. Mitral valve: Not well visualized. There is a bioprosthesis. The leaflets are not seen well enough to exclude endocarditis. The velocity/gradient profile is unchanged from 04/2013 echocardiogram suggesting no change in valve function or stenosis. There is trace regurgitation. Aortic valve: Not well visualized. The valve is trileaflet. The leaflets are mildly thickened and mildly calcified. There is no evidence of stenosis. There is no significant regurgitation. Tricuspid valve: Well visualized. The leaflets are normal thickness. There is no evidence of stenosis. There is trace to mild regurgitation. Pulmonic valve: Not well visualized. Aorta: The aorta is not visualized. Pericardium: There is no pericardial effusion. No evidence of pleural fluid accumulation. Pulmonary arteries: Not well visualized. Systolic pressure is mildly to moderately increased. Systemic veins: Not well visualized. Pulmonary veins: Visualization of the pulmonary venous anatomy is incomplete, but a significant abnormality is unlikely. Measurements Left ventricle Value Ref Right atrium continued Value Ref SHIRA, LAX 4.5 cm 4.2 - ML dim, ES, A4C 4.3 cm 2.6 - 5.8 4.4 ESD, LAX 3.3 cm 2.5 - SI dim, ES, A4C (H) 6.0 cm 3.4 - 4.0 5.3 FS, LAX 27 % 25 - 43 SI dim/bsa, ES, 3.0 cm/m^2 1.8 - PW, ED, LAX (H) 1.2 cm 0.6 - A4C 3.0 1.0 Estimated RAP 8 mm Hg -------- FS 27 % 25 - 43 Mid-wall FS 11 % ------- Aortic valve Value Ref PW, ED (H) 1.2 cm 0.6 - Jon diam, ED 2.0 cm -------- 1.0 Jon diam/bsa, ED 1.0 cm/m^2 -------- PW/ID, ED 0.27 ------- Peak v, S 1.76 m/sec -------- E', lat jon, TDI (L) 6.9 cm/sec >=10.0 VTI, S 47.1 cm -- ------ E/e', lat jon, TDI 30 ------- Mean grad, S 7.0 mm Hg ----- --- E', med jon, TDI 7.1 cm/sec >=7.0 Peak grad, S 12.0 mm Hg -- ------ E/e', med jon, TDI 29 ------- LVOT/AV, VTI ratio 0.53 ----- --- E', avg, TDI 7.0 cm/sec ------- WILLY, VTI 1.07 cm^2 ----- --- E/e', avg, TDI (H) 30 <=14 WILLY, Vmax 1.14 cm^2 -- ------ LVOT Value Ref Mitral valve Value Ref Diam, S 1.60 cm ------- Peak E 2.07 m/sec -------- Area 2.0 cm^2 ------- Peak A 1.28 m/sec -------- Peak lauren, S 1 m/sec ------- Decel time 309 ms -------- VTI, S 25.0 cm ------- PHT 90 ms -------- Mean grad, S 2 mm Hg ------- Mean grad, D 7.0 mm Hg -------- SV 50 ml ------- Peak grad, D 17.2 mm Hg -------- SV/bsa 25 ml/m^2 ------- Peak E/A ratio 1.62 -------- MVA, PHT 2.5 cm^2 -------- Ventricular septum Value Ref IVS, ED (H) 1.2 cm 0.6 - Pulmonic valve Value Ref 1.0 Peak v, S 0.7 m/sec -------- Peak grad, S 2.0 mm Hg -------- Right ventricle Value Ref SHIRA, LAX 3.8 cm ------- Tricuspid valve Value Ref TR peak v (H) 3.46 m/sec <=2.8 Left atrium Value Ref Peak RV-RA grad, S 48 mm Hg -------- ML dim, A4C 4.6 cm ------- Max TR lauren 3.46 m/sec -------- SI dim, A4C 4.9 cm ------- Vol/bsa, ES, 1-p 34 ml/m^2 12 - 37 Aortic root Value Ref A4C Root diam 3.2 cm <4.1 Vol/bsa, ES, A/L 34 ml/m^2 16 - 34 Root max diam, ED 3.2 cm <4.1 Right atrium Value Ref SI dim, ES (H) 6.0 cm 3.4 - 5.3 Legend: (L) and (H) renato values outside specified reference range. Prepared and electronically signed by Edinson Fabian MD 03/08/2019 14:01
[2019-03-08] MEDS: Lisinopril TAB* 10 MG PO SCH (17:17)
[2019-03-08] MEDS: Atorvastatin* 20 MG TAB PO SCH (17:17)
[2019-03-08] MEDS: Warfarin TAB(*) 5 MG PO SCH (17:17)
[2019-03-08] MEDS: Tamsulosin CAP* 0.4 MG PO SCH (17:17)
[2019-03-08] MEDS: Vancomycin(*) 1,250 MG in NS 0.9% 250 ML* 250 ML IVPB SCH (21:21)
[2019-03-09] MEDS: ZOSYN 3.375 GM Q8H per EXTENDED INFUSION IVPB SCH ×6 (02:50→16:56)
[2019-03-09 05:33] LABS: INR 2.3 (0.82-1.09)
[2019-03-09 05:45] LABS: ABS Basophils 0.1 10^3/ul (0-0.2); ABS Lymphocytes 0.8 10^3/ul (1.0-4.8); ABS Monocytes 0.8 10^3/ul (0-0.8); ABS Neutrophils 7.6 10^3/ul (1.5-7.7); Eosinophil % 0.2 %; Hematocrit 24 % (42-52); Hemoglobin 7.6 g/dL (14.0-18.0); Lymphocyte % 8.3 %; Mean Corpuscular HGB Conc 32 g/dL (31-36); Mean Corpuscular Hemoglobin 23 pg (27-31); Mean Corpuscular Volume 74 fL (80-94); Mean Platelet Volume 8.3 fL (7.4-10.4); Platelet Count 166 10^3/uL (150-450); Red Blood Count 3.26 10^6 /uL (4.18-5.48); Red Cell Distribution Width 19 % (10-15); White Blood Count 9.3 10^3/uL (3.5-10.8)
[2019-03-09 05:49] LABS: BUN/Creatinine Ratio 13.8 (8-20); C Reactive Protein 105.64 mg/L (<8.01); EGFR African American 61.6 (>60); EGFR Non-African American 50.9 (>60); Potassium 4.1 mmol/L (3.5-5.0)
[2019-03-09] MEDS: Vancomycin(*) 1,250 MG in NS 0.9% 250 ML* 250 ML IVPB SCH ×2 (08:20→20:25)
[2019-03-09] MEDS: Ferrous Sulfate TAB* 325 MG PO SCH (08:38)
[2019-03-09] MEDS: Ascorbic Acid TAB* 500 MG PO SCH (08:38)
[2019-03-09] MEDS: Thiamine TAB* 100 MG TAB PO SCH (08:38)
[2019-03-09] MEDS: Multivitamins/Minerals TAB PO SCH (08:38)
[2019-03-09] MEDS: Sertraline* 50 MG TAB PO SCH (08:39)
[2019-03-09] MEDS: Pantoprazole TAB * 40 MG TAB PO SCH (08:39)
--- NOTE | 2019-03-09 08:39 | PN ---
Subjective - Subjective Reason for Note: Progress Note History: He has no pain in his foot and denies fevers, chills or sweats. His stool are loose, but not explosive. They are dark - pending FOB. He has no chest pain, palpitations. His appetite remains good. 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 Diabetic retinopathy (Chronic) E11.319 Essential hypertension (Chronic) I10 History of SBE (subacute bacterial endocarditis) (Chronic) Z86.79 Hyperlipidemia (Chronic) E78.5 Mitral valve replacement xenograft (Chronic) Peripheral vascular disease (Chronic) I73.9 Current Medications: Current Medications Acetaminophen (Tylenol Tab*) 650 mg PO Q4H PRN PRN Reason: FEVER/PAIN Ascorbic Acid (Vitamin C Tab*) 250 mg PO EVERY OTHER DAY [facility] Atorvastatin Calcium (Lipitor*) 20 mg PO QPM [facility] Last Admin: 03/08/19 17:17 Dose: 20 mg Dronedarone (Multaq Tab*) 400 mg PO BID WITH MEALS [facility] Last Admin: 03/08/19 17:17 Dose: 400 mg Ferrous Sulfate (Ferrous Sulfate Tab*) 325 mg PO EVERY OTHER DAY [facility] Folic Acid (Folvite Tab*) 1 mg PO DAILY [facility] Last Admin: 03/08/19 10:59 Dose: 1 mg Piperacillin Sod/Tazobactam (Sod 3.375 gm/ Sodium Chloride) 100 mls @ 25 mls/ hr IVPB Q8H [facility] Last Admin: 03/09/19 02:50 Dose: 25 mls/hr Vancomycin HCl 1,250 mg/ (Sodium Chloride) 250 mls @ 166.667 mls/hr IVPB Q12H [facility] Last Admin: 03/09/19 08:20 Dose: 166.667 mls/hr Lisinopril (Prinivil Tab*) 10 mg PO QPM [facility] Last Admin: 03/08/19 17:17 Dose: 10 mg Lorazepam (Ativan Tab(*)) 0 - 6 mg PO .[facility] PROTOCOL [facility]; Protocol Magnesium Oxide (Magox 400 Tab*) 400 mg PO BID [facility] Last Admin: 03/08/19 21:16 Dose: 400 mg Multivitamins/Minerals (Theragran/Minerals Tab*) 1 tab PO DAILY [facility] Last Admin: 03/08/19 10:59 Dose: 1 tab Pantoprazole Sodium (Protonix Tab*) 40 mg PO QAM [facility] Last Admin: 03/08/19 10:59 Dose: 40 mg Pharmacy Consult (Vancomycin Per Pharmacy*) 1 note FOLLOW UP .VANC PER PHARMACY [facility]; Protocol Pharmacy Consult (Zosyn Per Pharmacy*) 1 note FOLLOW UP .ZOSYN PER PHARMACY [facility] Pharmacy Profile Note (Vancomycin Trough Check) 1 note FOLLOW UP ONCE ONE Stop: 03/10/19 08:31 Sertraline [facility] ([facility]*) [facility] Admin: 03/08/19 10:59 Dose: 150 mg Tamsulosin HCl (Flomax Cap*) 0.4 mg PO QPM [facility] Last Admin: 03/08/19 17:17 Dose: 0.4 mg Thiamine HCl (Vitamin B-1 Tab*) 100 mg PO DAILY [facility] Last Admin: 03/08/19 10:59 Dose: 100 mg Warfarin Sodium (Coumadin Tab(*)) 5 mg PO [email or web address]@1700 [facility]; Protocol Last Admin: 03/08/19 17:17 Dose: 5 mg Warfarin Sodium (Coumadin Tab(*)) 2.5 mg PO [email or web address] [facility] Last Admin: 03/07/19 17:50 Dose: 2.5 mg Home Medications: Home Medications Medication Instructions Recorded Confirmed Type Lisinopril 10 mg PO QPM 04/09/13 03/06/19 History Pantoprazole TAB * [Protonix TAB 40 mg PO QAM 04/09/13 03/06/19 History (NF)] Sertraline HCl 150 mg PO QAM 04/09/13 03/06/19 History Atorvastatin* [Lipitor 40 MG*] 20 mg PO QPM 07/21/13 03/06/19 History Ascorbic Acid TAB* [Vitamin C 500 mg PO QPM 01/22/14 03/06/19 History TAB*] Ferrous Sulfate [Iron] 65 mg PO QPM 08/03/14 03/06/19 History Magnesium Oxide [Magnesium Oxide-] 400 mg PO BID 08/03/14 03/06/19 History Tamsulosin CAP* [Flomax CAP*] 0.4 mg PO QPM 08/03/14 03/06/19 History Warfarin Sodium 5 mg PO [id number] 08/03/14 03/06/19 History Allergies: Allergies Allergy/AdvReac Type Severity Reaction Status Date / Time peanut Allergy Severe Anaphylatic Verified 03/06/19 16:19 Shock rivaroxaban [From Xarelto] Allergy Severe Anaphylatic Verified 03/06/19 16:19 Shock ciprofloxacin Allergy Intermediate Edema Verified 03/06/19 16:19 terazosin Allergy Intermediate Rash Verified 03/06/19 16:19 Iodinated Contrast- Oral and Allergy Unknown Unknown Verified 03/06/19 16:19 IV Dye Reaction Details ENVIRONMENTAL/SEASONAL Allergy Congestion Uncoded 03/06/19 16:19 Objective - Vital Signs Vital Signs: Vital Signs 03/08/19 03/08/19 03/08/19 11:15 15:00 19:00 Temperature 98.3 F 98.1 F 98.5 F Pulse Rate 74 74 81 Respiratory 18 18 20 Rate Blood Pressure 169/54 160/50 162/46 (mmHg) O2 Sat by Pulse 100 99 98 Oximetry 03/08/19 03/08/19 03/09/19 20:00 23:00 03:00 Temperature 99.7 F 98.9 F Pulse Rate 80 80 Respiratory 20 20 16 Rate Blood Pressure 165/54 132/60 (mmHg) O2 Sat by Pulse 95 96 Oximetry 03/09/19 03/09/19 07:00 08:00 Temperature 98.4 F Pulse Rate 77 Respiratory 22 18 Rate Blood Pressure 152/53 (mmHg) O2 Sat by Pulse 97 Oximetry - Intake and Output Intake and Output: Intake & Output 03/06/19 03/07/19 03/08/19 03/09/19 11:59 11:59 11:59 11:59 Intake Total 950 4125 1380 Balance 950 4125 1380 Weight 195 lb 1.6 oz 195 lb 1.6 oz Intake: IV Fluids 964 200 ABX - VANCOMYCIN 250 ABX - ZOSYN 100 100 NS (0.9%) 100 PRBC 614 IVPB 350 651 350 ABX - VANCOMYCIN 250 250 250 ABX - ZOSYN 100 100 100 PRBC 301 Oral 600 2510 830 Other: Estimated Void Small Medium # Bowel Movements 1 1 0 Estimated Stool Amount Small Large # Voids 4 0 2 ADLs: Meal Record Start: 03/06/19 19: 20 Freq: DAILY@0900,1400,1800 Status: Active Protocol: Created 03/06/19 19:20 System (Rec: 03/06/19 19:20 System MED-M19) Document 03/07/19 09:00 [id number] (Rec: 03/07/19 16:07 [id number] MED-C09) Document 03/07/19 14:00 [id number] (Rec: 03/07/19 16:09 [id number] MED-C09) Document 03/07/19 18:00 [id number] (Rec: 03/07/19 20:57 [id number] MED-C07) Document 03/08/19 09:00 [id number] (Rec: 03/08/19 09:03 [id number] MED-C11) Document 03/08/19 13:15 [id number] (Rec: 03/08/19 13:15 [id number] MED-C11) Document 03/08/19 18:00 [id number] (Rec: 03/08/19 18:35 [id number] MED-C09) Intake and Output Start: 03/06/19 16: 11 Freq: Status: Active Protocol: Created 03/06/19 16:11 System (Rec: 03/06/19 16:11 System ED-C24) Intake and Output Start: 03/06/19 19: 20 Freq: DAILY@0600,1400,2200 Status: Active Protocol: Created 03/06/19 19:20 System (Rec: 03/06/19 19:20 System MED-M19) Document 03/07/19 05:59 [id number] (Rec: 03/07/19 06:01 [id number] MED-C09) Document 03/07/19 14:00 [id number] (Rec: 03/07/19 16:09 [id number] MED-C09) Document 03/07/19 22:00 [id number] (Rec: 03/07/19 22:34 [id number] MED-C07) Document 03/08/19 05:51 [id number] (Rec: 03/08/19 05:52 [id number] MED-C09) Document 03/08/19 07:27 [id number] (Rec: 03/08/19 07:27 [id number] MED-M22) Document 03/08/19 13:15 [id number] (Rec: 03/08/19 13:15 [id number] MED-C11) Document 03/08/19 20:37 [id number] (Rec: 03/08/19 20:39 [id number] MED-C07) Document 03/09/19 05:38 [id number] (Rec: 03/09/19 05:38 [id number] MED-C07) - Physical Exam General Physical Exam Comment: Right foot - redness and swelling receeding. No drainage. No Osler nodes or other signs of infective endocarditis General: No Cyanosis, No Anemia, No Jaundice, No Clubbing Lungs and Chest: Yes: Chest Expansion Full, Chest Expansion Symetrica, Percussion Note Resonant, Vessicular Breath Sounds. No: Crackles, Wheezes, Respiratory Distress - he has mild tachypnea Heart Rate and Rhythm: Regular Additional Cardiovascular: Yes: Normal Heart Sounds. No: Heart Murmur, Pedal Edema Abdominal Exam: Yes: Soft, Bowel Sounds Present. No: Distention, Hepatomegaly, Abdominal Tenderness Results - Results Lab Results: Laboratory Results - last 24 hr 03/08/19 03/08/19 03/09/19 09:17 09:17 05:09 WBC RBC Hgb Hct MCV MCH MCHC RDW Plt Count MPV Neut % (Auto) Lymph % (Auto) Ocean % (Auto) Eos % (Auto) Baso % (Auto) Absolute Neuts (auto) Absolute Lymphs (auto) Absolute Monos (auto) Absolute Eos (auto) Absolute Basos (auto) Absolute Nucleated RBC Nucleated RBC % INR (Anticoag Therapy) 2.30 H Sodium Potassium Chloride Carbon Dioxide Anion Gap BUN Creatinine Est GFR ( Amer) Est GFR (Non-Af Amer) BUN/Creatinine Ratio Glucose Calcium GGT 36 C-Reactive Protein Vancomycin Trough 12.8 03/09/19 03/09/19 05:09 05:09 WBC 9.3 RBC 3.26 L Hgb 7.6 L Hct 24 L MCV 74 L MCH 23 L MCHC 32 RDW 19 H Plt Count 166 MPV 8.3 Neut % (Auto) 81.8 Lymph % (Auto) 8.3 Ocean % (Auto) 9.1 Eos % (Auto) 0.2 Baso % (Auto) 0.6 Absolute Neuts (auto) 7.6 Absolute Lymphs (auto) 0.8 L Absolute Monos (auto) 0.8 Absolute Eos (auto) 0.0 Absolute Basos (auto) 0.1 Absolute Nucleated RBC 0.0 Nucleated RBC % 0.0 INR (Anticoag Therapy) Sodium 140 Potassium 4.1 Chloride 112 H Carbon Dioxide 21 L Anion Gap 7 BUN 19 Creatinine 1.38 H Est GFR ( Amer) 61.6 Est GFR (Non-Af Amer) 50.9 BUN/Creatinine Ratio 13.8 Glucose 148 H Calcium 9.0 GGT C-Reactive Protein 105.64 H Vancomycin Trough Radiology Results: Patient Name: PIPO PANIAGUA Medical Record#: [id number] Ordering Physician: Amelie Colin MD Acct.#: [id number] : 1950 Age: 68 Sex: M Location: [address] [place] [address] MEDICAL Exam Date: 03/08/19 104 ADM Status: ADM IN Order Information: MRI LOWER EXTREMITY RIGHT W/O Accession Number: [id number] CPT: 71821 INDICATION: Diabetic foot infection. COMPARISON: Comparison is made with a prior MRI of the right foot from February and a prior x-ray study of the right foot from March 06, 2019. TECHNIQUE: Axial, sagittal and coronal T1 and T2-weighted images of the right foot were obtained. FINDINGS: There is diffuse soft tissue swelling. The patient is status post amputation of the first toe at the level of the distal first metatarsal. There is dislocation of the second metatarsal interphalangeal joint with the proximal phalanx displaced dorsal relative to the distal second metatarsal. The bones are overriding. There is increased localized fluid adjacent to the second toe proximal middle and distal phalanges some of which appears to be related to distention of the synovial sheath of the flexor tendon. The possibility of an abscess cannot be excluded. There appears to be erosive change in the second metatarsal head with bone marrow edema in the distal half of the second metatarsal suggestive of osteomyelitis less likely posttraumatic change. No other areas of bone marrow edema are seen. IMPRESSION: 1. DISLOCATION OF THE SECOND METATARSAL PHALANGEAL JOINT. 2. FINDINGS SUGGESTIVE OF OSTEOMYELITIS INVOLVING THE DISTAL SECOND METATARSAL LESS LIKELY POSTTRAUMATIC CHANGE. 3. FLUID AROUND THE SECOND TOE LIKELY RELATED TO TENOSYNOVITIS. THE POSSIBILITY OF AN ABSCESS CANNOT BE RULED OUT. 3. STATUS POST AMPUTATION OF THE DISTAL FIRST METATARSAL. <Electronically signed by Cedrick Mustafa MD in [place]> 03/08/19 1236 Dictated By: Cedrick Mustafa MD Dictated Date/Time: 03/08/19 1236 Transcribed Date/Time: 03/08/19 1223 EKG Report: Rate 72 FL 173 QTc 454 QRS axis 50 - odd looking P waves ? ectopic pacemaker. Otherwise normal narrow complex rhythm. I directly inspected this Other Results/Reports: Transthoracic echocardiogram: Summary: - Left ventricle: The cavity size is normal. Wall thickness is at the upper limits of normal. Systolic function is at the lower limits of normal. The estimated ejection fraction is 50-55%. - Ventricular septum: Ventricular septal wall motion has a postoperative appearance. - Left atrium: The atrium is mildly dilated. - Mitral valve: There is a bioprosthesis. The leaflets are not seen well enough to exclude endocarditis. The velocity/gradient profile is unchanged from 04/2013 echocardiogram suggesting no change in valve function or stenosis. There is trace regurgitation. The peak E-wave velocity is 2.07 m/sec. The pressure half-time is 90 ms. The mean diastolic gradient is 7.0 mm Hg. - Pulmonary arteries: Systolic pressure is mildly to moderately increased. Recommendations: Compared to prior study from 04/2016, no clinically significant changes noted. Assessment - Problem List Assessment: Patient Problems Cellulitis of foot, right (Acute) Iron deficiency anemia (Acute) Non-sustained ventricular tachycardia (Acute) Osteomyelitis of toe of right foot (Acute) Alcohol dependence (Chronic) Atrial fibrillation (Chronic) Cerebrovascular disease (Chronic) Depressive disorder (Chronic) Diabetes mellitus type 2 (Chronic) Diabetic foot ulcer (Chronic) Diabetic peripheral neuropathy (Chronic) Diabetic renal disease (Chronic) Diabetic retinopathy (Chronic) Essential hypertension (Chronic) History of SBE (subacute bacterial endocarditis) (Chronic) Hyperlipidemia (Chronic) Mitral valve replacement xenograft (Chronic) Peripheral vascular disease (Chronic) Plan: Cellulitis of foot, right (Acute) Osteomyelitis right 2nd toe distal metatarsal. I have asked for an orthopediic consultation. I will also ask Dr. Cox for an infectious disease consultation Iron deficiency anemia (Acute) Awaiting FOB results on stool. Declining Hgb my point to acute phase reaction ontop of the chronic iron deficiency. May need colonoscopy intermediate. 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 I think it unlikely given the negative blood cultures. Dr. Cox will help guide us as to whether he requires a trans esophageal echocardiogram Secondary diagnoses: Cerebrovascular disease (Chronic) Depressive disorder (Chronic) Diabetes mellitus type 2 (Chronic) Diabetic foot ulcer (Chronic) Diabetic peripheral neuropathy (Chronic) Diabetic renal disease (Chronic) Diabetic retinopathy (Chronic) Essential hypertension (Chronic) Hyperlipidemia (Chronic) Peripheral vascular disease (Chronic) I discussed the above with the patient and Cathie Paniagua (his ). The agree with the management plan.
[2019-03-09] MEDS: Magnesium Oxide TAB* 400 MG PO SCH ×2 (08:40→20:21)
[2019-03-09] MEDS: Folic Acid TAB* 1 MG PO SCH (08:40)
[2019-03-09] MEDS: Dronedarone TAB* 400 MG PO SCH ×2 (08:40→16:56)
[2019-03-09] MEDS ORDERED: Heparin VIAL(*) 5000 UNITS/ML VIAL (FIVE THOUSAND) IV SCH (12:00)
[2019-03-09] MEDS ORDERED: Heparin DRIP 25,000 UNITS(*) 25,000 UNITS/500 ML BAG IV SCH (12:00)
[2019-03-09 12:07] LABS: Immunoglobulin A 456 mg/dL (61 - 356)
--- NOTE | 2019-03-09 15:29 | CONSULT ---
Consult Consult: Orthopedic Surgery Consultation Date: 03/09/2019 Requesting Service: Medicine Chief Complaint: Right foot infection History: 68-year-old man with diabetic neuropathy who presented over the weekend with a right foot infection. She reports that on Friday, 3 days ago, he noticed swelling and redness of the right second toe. This worsened to involve the foot. He came in the hospital and was started on antibiotics, and the erythema has receded back to just the second toe. The second toe remains swollen. He has no significant pain, but is neuropathic. He reports that he has had an ulcer at the plantar aspect of the second metatarsal head for a couple of years. Review of Systems: Negative for recent visual changes, difficulty swallowing, chest pain, shortness of breath, abdominal pain, hematuria, easy bruising, diffuse weakness or lack of coordination, and diffuse rash. Positive for fever. PMH: Diabetes, diabetic neuropathy, hyperlipidemia, hypertension, depression, peripheral vascular disease, anemia, CVA, atrial fibrillation, GI bleed PSH: Right hallux amputation for osteomyelitis, mitral valve repair, carotid endarterectomy, tonsillectomy Medications: Iron, tamsulosin, sertraline, pantoprazole, magnesium, warfarin, lisinopril, atorvastatin Allergies: Peanuts, xarelto, ciprofloxacin, Terazosin, IV contrast SH: Retired. No tobacco use. Drinks 8 beers per day. FH: CHF, CAD, diabetes, cancer Physical Examination: Constitutional: Temp Pulse Resp BP Pulse Ox 98.8 F 70 20 141/49 98 03/09/19 11:00 03/09/19 11:00 03/09/19 11:00 03/09/19 11:03/09/19 11:00 General appearance is healthy and non-septic in no acute distress. Cardiovascular: Pulse examination demonstrates palpable pedal pulses with brisk capillary refill. There are no varicosities. Lung sounds clear bilaterally. Abdomen: Soft and nontender Lymphatic: No lymphadenopathy appreciated. Skin: Bilateral upper and lower extremity examination demonstrates no ulcerative lesions aside from those of the involved extremity detailed below, if present. Psychiatric / Neurological: Appropriate affect. Alert and oriented to person, place and time. There is no significant abnormality in coordination appreciated. Normoreflexive deep tendon reflex of the affected extremity. Musculoskeletal: Bilateral upper extremities and contralateral lower extremity show full range of motion with no evidence of instability and no tenderness with palpation and 5 /5 strength. There is no gross deformity. There is 5/5 motor strength and impaired light touch sensation. There is swelling of the right second toe. There is also erythema of the right second toe. The erythema and the foot has receded from the previously marked area. Present callus at the plantar aspect of the second metatarsal head. No surrounding erythema. No drainage. The skin and nails are normal to inspection/palpation without evidence of RSD or lymphadenopathy. Painless ankle range of motion. Imaging: MRI was obtained, and independently interpreted and shows osteomyelitis of the second toe and likely of the second metatarsal head Labs: WBC 9.3 HCT 24 Platelets 166 Cr 1.38 INR 2.3 CRP 105 Impression and Plan: Right second toe and second metatarsal head osteomyelitis in the setting of diabetic neuropathy and a diabetic foot ulcer. I had a long discussion with him and his about the diagnosis and treatment options. We did discuss both nonoperative and operative treatment options. He has a good understanding of this, from his prior osteomyelitis of the hallux. He would like to move forward with surgical treatment. The specific plan will be for a right foot I&D, second toe amputation, second metatarsal head excision, possible gastrocnemius recession. For now, antibiotics as guided by Infectious Diseases. Please hold Coumadin. We will plan on moving forward with surgery on if medically cleared. Appreciate medical clearance. Toy Rollins MD
--- NOTE | 2019-03-09 16:40 | CONS ---
CONSULTATION REPORT: DATE OF CONSULT: 03/09/19 REQUESTING PHYSICIAN: Dr. Rhoades. CONSULTING SERVICE: Infectious Disease. REASON FOR CONSULT: Right foot infection. IMPRESSION: 1. Right second toe and distal metatarsal acute osteomyelitis with abscess, dislocation, and cellulitis. A plantar wound is also present and culture of which is growing group B streptococcus. Blood cultures from admission are negative at 48 hours. 2. History of mitral valve endocarditis and mitral valve replacement. Blood cultures negative. Transthoracic echocardiogram without acute change. I do not think he has infectious endocarditis nor does he need further workup for it. 3. Type 2 diabetes with peripheral neuropathy. 4. History of left great toe amputation for osteomyelitis. RECOMMENDATIONS: We will continue broad-spectrum antibiotics with vancomycin goal trough 15 to 20 and Zosyn while we await culture results. He is going to have an amputation of the toe and metatarsal head on . Further recommendations on duration and route of antibiotics pending those findings. HISTORY OF PRESENT ILLNESS: This is a 68-year-old man admitted with right foot pain, toe redness and swelling, came on suddenly over the weekend. He has had a sore on the bottom of the foot for over a year, he believes. Because of his symptoms, he was admitted to the hospital, started on vancomycin and Zosyn. He had an MRI that showed a dislocation of the second toe, osteomyelitis of the distal second metatarsal, fluid around the second toe, which I believe is an abscess. He had a wound culture taken which is growing group B strep. Sensitivity data is pending. He has had no fevers, chills, or sweats here. His appetite had been okay leading up to his admission. He had not noticed drenching sweats, fevers, or chills at home. PAST MEDICAL HISTORY: 1. Mitral valve endocarditis, status post mitral valve replacement. 2. Osteomyelitis of the right great toe, status post amputation. 3. Type 2 diabetes. 4. Peripheral neuropathy. 5. Hyperlipidemia. 6. Hypertension. 7. Depression. 8. Peripheral vascular disease. 9. History of left-sided stroke. 10. Atrial fibrillation, treated with cardioversion. 11. GI bleed. PAST SURGICAL HISTORY: 1. Status post removal of infected pacemaker wires. 2. Status post carotid endarterectomy. 3. Status post tonsillectomy. ALLERGIES: PEANUTS, XARELTO, CIPRO, TERAZOSIN, IV CONTRAST. MEDICATIONS: 1. Tylenol. 2. Vitamin C. 3. Lipitor. 4. Dronedarone. 5. Ferrous sulfate. 6. Folic acid. 7. Heparin infusion. 8. Pantoprazole. 9. Zosyn 3.375 g IV every 8 hours. 10. Sertraline. 11. Tamsulosin. 12. Vancomycin 1250 mg every 12 hours. SOCIAL HISTORY: He is retired, lives in [place], lives with his . FAMILY HISTORY: Father at 92 from heart failure. Mother is alive at 93 and healthy. REVIEW OF SYSTEMS: All negative except as noted above to a 12-point review. PHYSICAL EXAM: Vital Signs: Temperature 37.6, heart rate 80, respiratory rate 20, blood pressure 160/50, oxygen saturation 95% on room air. In general, he is awake, not in distress. Neurologic: He is oriented x3. Follows all commands. Moves all extremities. Sensation decreased to light touch in both feet. HEENT: There is no conjunctival hemorrhage. Oropharynx without lesions. Neck is supple without mass. Heart is regular rate and rhythm without murmurs, rubs, or gallops. Lungs are clear to auscultation bilaterally. Abdomen: Soft, nontender, nondistended. There are bowel sounds present. Skin : There is no rash or splinter hemorrhage. Musculoskeletal: There is no spine tenderness to palpation. The right first toe is surgically absent. The second toe is dorsiflexed. There is diffuse erythema, edema about the toe and in the forefoot. There is no crepitus or fluctuance. LABORATORY DATA: White blood cell count 9, hemoglobin 7, MCV 74, platelets 166. Creatinine 1.3. CRP 105. Stool occult blood positive. Ankle-brachial indices were normal in the right posterior tibial artery. Thanks for asking me to see Mr. Golden in consultation. Please see impression and recommendations outlined above. [id number]/[facility] #: [id number] [facility]ITAL[facility]
[2019-03-09] MEDS: Atorvastatin* 20 MG TAB PO SCH (16:56)
[2019-03-09] MEDS: Tamsulosin CAP* 0.4 MG PO SCH (16:56)
[2019-03-09] MEDS: Lisinopril TAB* 10 MG PO SCH (16:56)
[2019-03-09 20:15] LABS: ABS Eosinophils 0.1 10^3/ul (0-0.6); ABS Lymphocytes 0.8 10^3/ul (1.0-4.8); ABS Monocytes 0.8 10^3/ul (0-0.8); ABS Neutrophils 6.1 10^3/ul (1.5-7.7); Eosinophil % 0.7 %; Hematocrit 27 % (42-52); Hemoglobin 8.5 g/dL (14.0-18.0); Lymphocyte % 9.7 %; Mean Corpuscular HGB Conc 31 g/dL (31-36); Mean Corpuscular Hemoglobin 24 pg (27-31); Mean Corpuscular Volume 76 fL (80-94); Platelet Count 179 10^3/uL (150-450); Red Blood Count 3.57 10^6 /uL (4.18-5.48); Red Cell Distribution Width 20 % (10-15); White Blood Count 7.7 10^3/uL (3.5-10.8)
[2019-03-09 20:22] LABS: Tissue Transglutaminase IgA Ab 3.4 U/mL; Tissue Transglutaminase IgG Ab <1.2 U/mL
[2019-03-09 20:30] LABS: EGFR African American 54.7 (>60); EGFR Non-African American 45.2 (>60)
[2019-03-10] MEDS: ZOSYN 3.375 GM Q8H per EXTENDED INFUSION IVPB SCH ×6 (02:21→17:19)
[2019-03-10 06:46] LABS: Activated Partial Thrombo Time 36.5 seconds (26.0-38.0); INR 1.98 (0.82-1.09)
[2019-03-10 06:51] LABS: ABS Eosinophils 0.1 10^3/ul (0-0.6); ABS Lymphocytes 0.7 10^3/ul (1.0-4.8); ABS Monocytes 0.8 10^3/ul (0-0.8); ABS Neutrophils 5.9 10^3/ul (1.5-7.7); Eosinophil % 0.9 %; Hematocrit 27 % (42-52); Hemoglobin 8.5 g/dL (14.0-18.0); Mean Corpuscular HGB Conc 32 g/dL (31-36); Mean Corpuscular Hemoglobin 24 pg (27-31); Mean Corpuscular Volume 76 fL (80-94); Mean Platelet Volume 8.4 fL (7.4-10.4); Nucleated Red Blood Cells % 0.1; Platelet Count 173 10^3/uL (150-450); Red Cell Distribution Width 20 % (10-15); White Blood Count 7.6 10^3/uL (3.5-10.8)
[2019-03-10 06:55] LABS: BUN/Creatinine Ratio 12.3 (8-20); C Reactive Protein 134.29 mg/L (<8.01); EGFR African American 54.3 (>60); EGFR Non-African American 44.9 (>60); Potassium 3.9 mmol/L (3.5-5.0)
--- NOTE | 2019-03-10 08:15 | PN ---
Subjective - Subjective Reason for Note: Progress Note History: He tolerated the 1 unit PRBCs yesterday. He has no pain in his right foot and denies fevers and sweats. He had a positive fecal occult blood test (I note he is taking iron). Otherwise, he is feeling well. 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 Diabetic retinopathy (Chronic) E11.319 Essential hypertension (Chronic) I10 History of SBE (subacute bacterial endocarditis) (Chronic) Z86.79 Hyperlipidemia (Chronic) E78.5 Mitral valve replacement xenograft (Chronic) Peripheral vascular disease (Chronic) I73.9 Current Medications: Current Medications Acetaminophen (Tylenol Tab*) 650 mg PO Q4H PRN PRN Reason: FEVER/PAIN Ascorbic Acid (Vitamin C Tab*) 250 mg PO EVERY OTHER DAY [facility] Last Admin: 03/09/19 08:38 Dose: 250 mg Atorvastatin Calcium (Lipitor*) 20 mg PO QPM [facility] Last Admin: 03/09/19 16:56 Dose: 20 mg Dronedarone (Multaq Tab*) 400 mg PO BID WITH MEALS [facility] Last Admin: 03/09/19 16:56 Dose: 400 mg Ferrous Sulfate (Ferrous Sulfate Tab*) 325 mg PO EVERY OTHER DAY [facility] Last Admin: 03/09/19 08:38 Dose: 325 mg Folic Acid (Folvite Tab*) 1 mg PO DAILY [facility] Last Admin: 03/09/19 08:40 Dose: 1 mg Piperacillin Sod/Tazobactam (Sod 3.375 gm/ Sodium Chloride) 100 mls @ 25 mls/ hr IVPB Q8H [facility] Last Admin: 03/10/19 02:21 Dose: 25 mls/hr Vancomycin HCl 1,250 mg/ (Sodium Chloride) 250 mls @ 166.667 mls/hr IVPB Q12H [facility] Last Admin: 03/09/19 20:25 Dose: 166.667 mls/hr Lisinopril (Prinivil Tab*) 10 mg PO QPM [facility] Last Admin: 03/09/19 16:56 Dose: 10 mg Lorazepam (Ativan Tab(*)) 0 - 6 mg PO .PER [facility] PROTOCOL [facility]; Protocol Magnesium Oxide (Magox 400 Tab*) 400 mg PO BID [facility] Last Admin: 03/09/19 20:21 Dose: 400 mg Multivitamins/Minerals (Theragran/Minerals Tab*) 1 tab PO DAILY [facility] Last Admin: 03/09/19 08:38 Dose: 1 tab Pantoprazole Sodium (Protonix Tab*) 40 mg PO QAM [facility] Last Admin: 03/09/19 08:39 Dose: 40 mg Pharmacy Consult (Vancomycin Per Pharmacy*) 1 note FOLLOW UP .VANC PER PHARMACY [facility]; Protocol Pharmacy Consult (Zosyn Per Pharmacy*) 1 note FOLLOW UP .ZOSYN PER PHARMACY [facility] Pharmacy Profile Note (Vancomycin Trough Check) 1 note FOLLOW UP ONCE ONE Stop: 03/10/19 08:31 [facility]raline [facility] ([facility]ft*) [facility] Admin: 03/09/19 08:39 Dose: 150 mg Tamsulosin HCl (Flomax Cap*) 0.4 mg PO QPM [facility] Last Admin: 03/09/19 16:56 Dose: 0.4 mg Thiamine HCl (Vitamin B-1 Tab*) 100 mg PO DAILY [facility] Last Admin: 03/09/19 08:38 Dose: 100 mg Home Medications: Home Medications Medication Instructions Recorded Confirmed Type Lisinopril 10 mg PO QPM 04/09/13 03/06/19 History Pantoprazole TAB * [Protonix TAB 40 mg PO QAM 04/09/13 03/06/19 History (NF)] Sertraline HCl 150 mg PO QAM 04/09/13 03/06/19 History Atorvastatin* [Lipitor 40 MG*] 20 mg PO QPM 07/21/13 03/06/19 History Ascorbic Acid TAB* [Vitamin C 500 mg PO QPM 01/22/14 03/06/19 History TAB*] Ferrous Sulfate [Iron] 65 mg PO QPM 08/03/14 03/06/19 History Magnesium Oxide [Magnesium Oxide-] 400 mg PO BID 08/03/14 03/06/19 History Tamsulosin CAP* [Flomax CAP*] 0.4 mg PO QPM 08/03/14 03/06/19 History Warfarin Sodium 5 mg PO [id number] 08/03/14 03/06/19 History Allergies: Allergies Allergy/AdvReac Type Severity Reaction Status Date / Time peanut Allergy Severe Anaphylatic Verified 03/06/19 16:19 Shock rivaroxaban [From Xarelto] Allergy Severe Anaphylatic Verified 03/06/19 16:19 Shock ciprofloxacin Allergy Intermediate Edema Verified 03/06/19 16:19 terazosin Allergy Intermediate Rash Verified 03/06/19 16:19 Iodinated Contrast- Oral and Allergy Unknown Unknown Verified 03/06/19 16:19 IV Dye Reaction Details ENVIRONMENTAL/SEASONAL Allergy Congestion Uncoded 03/06/19 16:19 Objective - Vital Signs Vital Signs: Vital Signs 03/09/19 03/09/19 03/09/19 11:00 15:58 17:45 Temperature 98.8 F 98.9 F 99.6 F Pulse Rate 70 72 74 Respiratory 20 24 20 Rate Blood Pressure 141/49 153/44 175/55 (mmHg) O2 Sat by Pulse 98 98 99 Oximetry 03/09/19 03/09/19 03/09/19 19:20 20:00 23:00 Temperature 98.6 F 98.9 F Pulse Rate 71 70 Respiratory 24 24 24 Rate Blood Pressure 153/51 162/58 (mmHg) O2 Sat by Pulse 97 95 Oximetry 03/10/19 03:00 Temperature 98.8 F Pulse Rate 71 Respiratory 20 Rate Blood Pressure 146/52 (mmHg) O2 Sat by Pulse 95 Oximetry - Intake and Output Intake and Output: Intake & Output 03/07/19 03/08/19 03/09/19 03/10/19 11:59 11:59 11:59 11:59 Intake Total 950 4125 1500 1103 Output Total 100 Balance 950 4125 1500 1003 Weight 195 lb 1.6 oz 195 lb 1.6 oz Intake: IV Fluids 964 200 169 ABX - VANCOMYCIN 250 ABX - ZOSYN 100 100 NS (0.9%) 100 169 PRBC 614 IVPB 350 651 350 451 ABX - VANCOMYCIN 250 250 250 250 ABX - ZOSYN 100 100 100 201 PRBC 301 Oral 600 2510 950 180 Packed Cells 303 Output: Urine 100 Other: Estimated Void Small Medium Large # Bowel Movements 1 1 0 0 Estimated Stool Amount Small Large Large # Voids 4 0 2 1 ADLs: Meal Record Start: 03/06/19 19: 20 Freq: DAILY@0900,1400,1800 Status: Active Protocol: Created 03/06/19 19:20 System (Rec: 03/06/19 19:20 System MED-M19) Document 03/07/19 09:00 [id number] (Rec: 03/07/19 16:07 [id number] MED-C09) Document 03/07/19 14:00 [id number] (Rec: 03/07/19 16:09 [id number] MED-C09) Document 03/07/19 18:00 [id number] (Rec: 03/07/19 20:57 [id number] MED-C07) Document 03/08/19 09:00 [id number] (Rec: 03/08/19 09:03 [id number] MED-C11) Document 03/08/19 13:15 [id number] (Rec: 03/08/19 13:15 [id number] MED-C11) Document 03/08/19 18:00 [id number] (Rec: 03/08/19 18:35 [id number] MED-C09) Document 03/09/19 09:00 [id number] (Rec: 03/09/19 09:36 [id number] MED-C11) Document 03/09/19 14:00 [id number] (Rec: 03/09/19 14:40 [id number] MED-C11) Document 03/09/19 18:00 [id number] (Rec: 03/09/19 18:23 [id number] MED-C14) Intake and Output Start: 03/06/19 16: 11 Freq: Status: Active Protocol: Created 03/06/19 16:11 System (Rec: 03/06/19 16:11 System ED-C24) Document 03/09/19 17:51 [id number] (Rec: 03/09/19 17:52 [id number] MED-C07) Intake and Output Start: 03/06/19 19: 20 Freq: DAILY@0600,1400,2200 Status: Active Protocol: Created 03/06/19 19:20 System (Rec: 03/06/19 19:20 System MED-M19) Document 03/07/19 05:59 [id number] (Rec: 03/07/19 06:01 [id number] MED-C09) Document 03/07/19 14:00 [id number] (Rec: 03/07/19 16:09 [id number] MED-C09) Document 03/07/19 22:00 [id number] (Rec: 03/07/19 22:34 [id number] MED-C07) Document 03/08/19 05:51 [id number] (Rec: 03/08/19 05:52 [id number] MED-C09) Document 03/08/19 07:27 [id number] (Rec: 03/08/19 07:27 [id number] MED-M22) Document 03/08/19 13:15 [id number] (Rec: 03/08/19 13:15 [id number] MED-C11) Document 03/08/19 20:37 [id number] (Rec: 03/08/19 20:39 [id number] MED-C07) Document 03/09/19 05:38 [id number] (Rec: 03/09/19 05:38 [id number] MED-C07) Document 03/09/19 12:42 [id number] (Rec: 03/09/19 12:42 [id number] MED-C11) Document 03/09/19 21:54 [id number] (Rec: 03/09/19 21:56 [id number] MED-C07) Document 03/10/19 06:00 [id number] (Rec: 03/10/19 06:55 [id number] MED-M25) - Physical Exam General Physical Exam Comment: warm and well perfused. He is walking independently. Right foot - cellulitis is receeding further. General: No Cyanosis, No Jaundice, No Clubbing Skin: Normal: Rash Lungs and Chest: Yes: Chest Expansion Full, Chest Expansion Symetrica, Percussion Note Resonant, Vessicular Breath Sounds. No: Crackles, Wheezes Heart Rate and Rhythm: Regular Additional Cardiovascular: Yes: Normal Heart Sounds. No: Heart Murmur, Pedal Edema Abdominal Exam: Yes: Soft, Bowel Sounds Present. No: Distention, Abdominal Tenderness Results - Results Lab Results: Laboratory Results - last 24 hr 03/06/19 03/07/19 03/09/19 16:43 21:38 16:55 WBC RBC Hgb Hct MCV MCH MCHC RDW Plt Count MPV Neut % (Auto) Lymph % (Auto) [place] % (Auto) Eos % (Auto) Baso % (Auto) Absolute Neuts (auto) Absolute Lymphs (auto) Absolute Monos (auto) Absolute Eos (auto) Absolute Basos (auto) Absolute Nucleated RBC Nucleated RBC % INR (Anticoag Therapy) APTT Sodium Potassium Chloride Carbon Dioxide Anion Gap BUN Creatinine Est GFR ( Amer) Est GFR (Non-Af Amer) BUN/Creatinine Ratio Glucose POC Glucose (mg/dL) 145 H Calcium C-Reactive Protein IgA 456 H Tiss Transglutamin IgG <1.2 Tiss Transglutamin IgA 3.4 Blood Type O Positive Antibody Screen Negative Crossmatch See Detail 03/09/19 03/09/19 03/09/19 20:09 20:09 20:09 WBC 7.7 RBC 3.57 L Hgb 8.5 L Hct 27 L MCV 76 L MCH 24 L MCHC 31 RDW 20 H Plt Count 179 MPV 8.0 Neut % (Auto) 78.3 Lymph % (Auto) 9.7 [place] % (Auto) 10.7 Eos % (Auto) 0.7 Baso % (Auto) 0.6 Absolute Neuts (auto) 6.1 Absolute Lymphs (auto) 0.8 L Absolute Monos (auto) 0.8 Absolute Eos (auto) 0.1 Absolute Basos (auto) 0.0 Absolute Nucleated RBC 0.0 Nucleated RBC % 0.0 INR (Anticoag Therapy) APTT 37.6 Sodium Potassium Chloride Carbon Dioxide Anion Gap BUN 20 Creatinine 1.53 H Est GFR ( Amer) 54.7 Est GFR (Non-Af Amer) 45.2 BUN/Creatinine Ratio Glucose POC Glucose (mg/dL) Calcium C-Reactive Protein IgA Tiss Transglutamin IgG Tiss Transglutamin IgA Blood Type Antibody Screen Crossmatch 03/09/19 03/10/19 03/10/19 20:52 00:10 05:53 WBC RBC Hgb Hct MCV MCH MCHC RDW Plt Count MPV Neut % (Auto) Lymph % (Auto) [place] % (Auto) Eos % (Auto) Baso % (Auto) Absolute Neuts (auto) Absolute Lymphs (auto) Absolute Monos (auto) Absolute Eos (auto) Absolute Basos (auto) Absolute Nucleated RBC Nucleated RBC % INR (Anticoag Therapy) 1.98 H APTT 37.7 36.5 Sodium Potassium Chloride Carbon Dioxide Anion Gap BUN Creatinine Est GFR ( Amer) Est GFR (Non-Af Amer) BUN/Creatinine Ratio Glucose POC Glucose (mg/dL) 183 H Calcium C-Reactive Protein IgA Tiss Transglutamin IgG Tiss Transglutamin IgA Blood Type Antibody Screen Crossmatch 03/10/19 03/10/19 05:53 05:53 WBC 7.6 RBC 3.50 L Hgb 8.5 L Hct 27 L MCV 76 L MCH 24 L MCHC 32 RDW 20 H Plt Count 173 MPV 8.4 Neut % (Auto) 78.5 Lymph % (Auto) 9.0 [place] % (Auto) 11.0 Eos % (Auto) 0.9 Baso % (Auto) 0.6 Absolute Neuts (auto) 5.9 Absolute Lymphs (auto) 0.7 L Absolute Monos (auto) 0.8 Absolute Eos (auto) 0.1 Absolute Basos (auto) 0.0 Absolute Nucleated RBC 0.0 Nucleated RBC % 0.1 INR (Anticoag Therapy) APTT Sodium 140 Potassium 3.9 Chloride 112 H Carbon Dioxide 20 L Anion Gap 8 BUN 19 Creatinine 1.54 H Est GFR ( Amer) 54.3 Est GFR (Non-Af Amer) 44.9 BUN/Creatinine Ratio 12.3 Glucose 139 H POC Glucose (mg/dL) Calcium 9.0 C-Reactive Protein 134.29 H IgA Tiss Transglutamin IgG Tiss Transglutamin IgA Blood Type Antibody Screen Crossmatch Radiology Results: Patient Name: PIPO PANIAGUA Medical Record#: [id number] Ordering Physician: Ling DACOSTA Acct.#: [id number] : 1950 Age: 68 Sex: M Location: [address] [place] [address] MEDICAL Exam Date: 03/09/19912 ADM Status: ADM IN Order Information: VL ANK/ BRACHIAL INDICES Accession Number: [id number] CPT: 27952 Indication: Claudication. Ankle-brachial indices of lower extremities was performed. The right ankle- brachial index is 1.04 with biphasic waveform in the right posterior tibial artery. Left toe brachial index is 0.75. Left ankle-brachial index could not BE obtained due to noncompressible vessels. IMPRESSION: Normal ankle-brachial index on the right. Normal toe brachial index on the left. <Electronically signed by Greer Martínez MD in OV> 03/09/19 1351 Dictated By: Greer Martínez MD Other Results/Reports: RUN DATE: 03/10/19 [facility] LAB LIVE PAGE 1 RUN TIME: [address] [place] [address] Specimen Inquiry Name: PIPO PANIAGUA : [address]: Joseph Rhoades MD Acct: [id number] Unit: [id number] AGE: 68 Location: [place] [address] Re03/06/19 SEX: M Status: ADM IN SPEC: [id number] MIKO: 03/09/19-[address]: Joseph Rhoades MD REQ: [id number] RECD: 03/09/19-1 _ STATUS: COMP OTHR DR: Mere Kirkland MD SOURCE: STOOL SPDESC: ORDERED: Occult Bl, Diag Procedure Result Reported Site Stool Occult Blood (1) Final 03/09/19- 1017 ML Stool Occult Blood Positive Collection Date (1) 03/09/19 Assessment - Problem List Assessment: Patient Problems Cellulitis of foot, right (Acute) Iron deficiency anemia (Acute) Osteomyelitis of toe of right foot (Acute) Positive fecal occult blood test (Acute) Alcohol dependence (Chronic) Atrial fibrillation (Chronic) Cerebrovascular disease (Chronic) Depressive disorder (Chronic) Diabetes mellitus type 2 (Chronic) Diabetic foot ulcer (Chronic) Diabetic peripheral neuropathy (Chronic) Diabetic renal disease (Chronic) Diabetic retinopathy (Chronic) Essential hypertension (Chronic) History of SBE (subacute bacterial endocarditis) (Chronic) Hyperlipidemia (Chronic) Mitral valve replacement xenograft (Chronic) Peripheral vascular disease (Chronic) Plan: Osteomyelitis of toe of right foot (Acute)Cellulitis of foot, right (Acute) I have reviewed both Dr. Patterson and Dr. Cox's consultation notes. He is due for surgery tomorrow. I will reverse his anticoagulation. Iron deficiency anemia (Acute) Positive fecal occult blood test (Acute) This is an independent problem. His last colonoscopy was 07/13/13 - he had a tubular adenoma. At that time he also had an EGD. Both were performed by Dr. Clement Graff for a hemoglobin of 4.9. He now has recurrent iron deficiency anemia and positive fecal occult blood. I will ask for a GI consultation. It is possible this is a small bowel issue with AVM. I have reversed his warfarin. I will likely not be able to restart this for a couple of weeks. I note that he is currently in an ectopic atrial rhythm - I don't know if his atrial appendage contains clot. Secondary diagnoses: Alcohol dependence (Chronic) Atrial fibrillation (Chronic) Cerebrovascular disease (Chronic) Depressive disorder (Chronic) Diabetes mellitus type 2 (Chronic) Diabetic foot ulcer (Chronic) Diabetic peripheral neuropathy (Chronic) Diabetic renal disease (Chronic) Diabetic retinopathy (Chronic) Essential hypertension (Chronic) History of SBE (subacute bacterial endocarditis) (Chronic) Hyperlipidemia (Chronic) Mitral valve replacement xenograft (Chronic) Peripheral vascular disease (Chronic) I discussed the above with the patient and he agrees with the management plan.
[2019-03-10] MEDS ORDERED: Phytonadione Oral Solution* 5 MG/25 ML UDC PO ONE (08:23)
[2019-03-10] MEDS ORDERED: Vancomycin Trough Check NOTE FOLLOW UP ONE (08:30)
[2019-03-10] MEDS: Magnesium Oxide TAB* 400 MG PO SCH ×2 (09:33→22:20)
[2019-03-10] MEDS: Dronedarone TAB* 400 MG PO SCH ×2 (09:33→17:19)
[2019-03-10] MEDS: Thiamine TAB* 100 MG TAB PO SCH (09:34)
[2019-03-10] MEDS: Multivitamins/Minerals TAB PO SCH (09:34)
[2019-03-10] MEDS: Pantoprazole TAB * 40 MG TAB PO SCH (09:34)
[2019-03-10] MEDS: Folic Acid TAB* 1 MG PO SCH (09:35)
[2019-03-10] MEDS: Sertraline* 50 MG TAB PO SCH (09:35)
[2019-03-10] MEDS: Vancomycin(*) 1,250 MG in NS 0.9% 250 ML* 250 ML IVPB SCH (10:06)
--- NOTE | 2019-03-10 15:00 | PN ---
Progress Note - Progress Note Date of Service: 03/10/19 SOAP: Subjective: []Pt seen at bedside. He feels well. Denies fever, chills or right foot pain. Objective: []Gen: NAD, nontoxic appearing RLE: R 2nd toe erythema decreased from yesterday, nontender. Plantar callus unchanged. Painless ankle ROM, Calves supple and nontender Assessment: []Right second toe and second metatarsal head osteomyelitis in the setting of diabetic neuropathy and a diabetic foot ulcer. Plan: [] Heel WB RLE Plan for OR tomorrow, patient aware and agreeable. right foot I&D, second toe amputation, second metatarsal head excision, possible gastrocnemius recession. INR remains elevated though coming down, repeat INR in the morning. Will need to restart anticoag after surgery per medicine ABX per ID: on vancishmael tatum Vital Signs Temp 98.2 F 03/10/19 10:55 Pulse 72 03/10/19 10:55 Resp 20 03/10/19 10:55 BP 155/49 03/10/19 10:55 Pulse Ox 96 03/10/19 10:55 Intake & Output 03/09/19 03/10/19 03/10/19 18:59 06:59 18:59 Intake Total 753 470 830 Output Total 100 Balance 753 370 830 Intake: IV Fluids 49 120 NS (0.9%) 49 120 IVPB 101 350 ABX - VANCOMYCIN 250 ABX - ZOSYN 101 100 Oral 300 0 830 Packed Cells 303 Output: Urine 100 Other: Estimated Void Large # Bowel Movements 0 Estimated Stool Amount Large # Voids 1 Laboratory Last Values WBC 7.6 10^3/uL (3.5-10.8) 03/10/19 05:53 RBC 3.50 10^6 /uL (4.18-5.48) L 03/10/19 05:53 RBC (Retic) 2.84 10^6/uL (4.18-5.48) L 03/07/19 07:28 Hgb 8.5 g/dL (14.0-18.0) L 03/10/19 05:53 Hct 27 % (42-52) L 03/10/19 05:53 HCT (Retic) 21 % (42-52) L 03/07/19 07:28 MCV 76 fL (80-94) L 03/10/19 05:53 MCH 24 pg (27-31) L 03/10/19 05:53 MCHC 32 g/dL (31-36) 03/10/19 05:53 RDW 20 % (10-15) H 03/10/19 05:53 Plt Count 173 10^3/uL (150-450) 03/10/19 05:53 MPV 8.4 fL (7.4-10.4) 03/10/19 05:53 Neut % (Auto) 78.5 % 03/10/19 05:53 Lymph % (Auto) 9.0 % 03/10/19 05:53 [place] % (Auto) 11.0 % 03/10/19 05:53 Eos % (Auto) 0.9 % 03/10/19 05:53 Baso % (Auto) 0.6 % 03/10/19 05:53 Absolute Neuts (auto) 5.9 10^3/ul (1.5-7.7) 03/10/19 05:53 Absolute Lymphs (auto) 0.7 10^3/ul (1.0-4.8) L 03/10/19 05:53 Absolute Monos (auto) 0.8 10^3/ul (0-0.8) 03/10/19 05:53 Absolute Eos (auto) 0.1 10^3/ul (0-0.6) 03/10/19 05:53 Absolute Basos (auto) 0.0 10^3/ul (0-0.2) 03/10/19 05:53 Absolute Nucleated RBC 0.0 10^3/ul 03/10/19 05:53 Nucleated RBC % 0.1 03/10/19 05:53 Hypochromasia 2+ 03/06/19 16:43 Anisocytosis 1+ 03/06/19 16:43 Microcytosis 1+ 03/06/19 16:43 Tear Drop Cells 1+ 03/06/19 16:43 Elliptocytes 1+ 03/06/19 16:43 Retic Count, Calc 2.1 % (0.5-1.5) H 03/07/19 07:28 Corrected Retic Count 1.0 % (0.5-1.5) 03/07/19 07:28 Retic Shift Factor 2.0 03/07/19 07:28 Retic Production Index 0.50 03/07/19 07:28 Immature Retic Fraction 0.51 03/07/19 07:28 Mean Retic Volume 100.6 03/07/19 07:28 INR (Anticoag Therapy) 1.98 (0.82-1.09) H 03/10/19 05:53 APTT 36.5 seconds (26.0-38.0) 03/10/19 05:53 Sodium 140 mmol/L (135-145) 03/10/19 05:53 Potassium 3.9 mmol/L (3.5-5.0) 03/10/19 05:53 Chloride 112 mmol/L (101-111) H 03/10/19 05:53 Carbon Dioxide 20 mmol/L (22-32) L 03/10/19 05:53 Anion Gap 8 mmol/L (2-11) 03/10/19 05:53 BUN 19 mg/dL (6-24) 03/10/19 05:53 Creatinine 1.54 mg/dL (0.67-1.17) H 03/10/19 05:53 Est GFR ( Amer) 54.3 (>60) 03/10/19 05:53 Est GFR (Non-Af Amer) 44.9 (>60) 03/10/19 05:53 BUN/Creatinine Ratio 12.3 (8-20) 03/10/19 05:53 Glucose 139 mg/dL (70-100) H 03/10/19 05:53 POC Glucose (mg/dL) 183 mg/dL (70-100) H 03/09/19 20:52 Hemoglobin A1c 7.2 % (4.0-5.6) H 03/07/19 07:28 Lactic Acid 1.0 mmol/L (0.5-2.0) 03/06/19 16:43 Calcium 9.0 mg/dL (8.6-10.3) 03/10/19 05:53 Magnesium 1.7 mg/dL (1.9-2.7) L 03/07/19 07:28 Iron 20 ug/dL (50-212) L 03/06/19 16:43 TIBC 465 mcg/dL (250-450) H 03/06/19 16:43 % Saturation 4 % (15-55) L 03/06/19 16:43 Unsat Iron Binding < 450 ug/dL 03/06/19 16:43 Transferrin 332 mg/dL (203-362) 03/06/19 16:43 Ferritin 8.5 ng/mL (24-336) L 03/06/19 16:43 Total Bilirubin 0.40 mg/dL (0.2-1.0) 03/06/19 16:43 GGT 36 U/L (9-64.0) 03/08/19 09:17 AST 21 U/L (13-39) 03/06/19 16:43 ALT 17 U/L (7-52) 03/06/19 16:43 Alkaline Phosphatase 76 U/L (34-104) 03/06/19 16:43 C-Reactive Protein 134.29 mg/L (<8.01) H 03/10/19 05:53 Total Protein 6.9 g/dL (6.4-8.9) 03/06/19 16:43 Albumin 4.0 g/dL (3.2-5.2) 03/06/19 16:43 Globulin 2.9 g/dL (2-4) 03/06/19 16:43 Albumin/Globulin Ratio 1.4 (1-3) 03/06/19 16:43 Vitamin B12 387 pg/mL (180-914) 03/06/19 16:43 Folate > 20.00 ng/mL (>3.99) 03/06/19 16:43 Urine Color Yellow 03/06/19 18:36 Urine Appearance Clear 03/06/19 18:36 Urine pH 5.0 (5-9) 03/06/19 18:36 Ur Specific [place] 1.013 (1.010-1.030) 03/06/19 18:36 Urine Protein 1+(30 mg/dl) (Negative) A 03/06/19 18:36 Urine Ketones Negative (Negative) 03/06/19 18:36 Urine Blood Negative (Negative) 03/06/19 18:36 Urine Nitrate Negative (Negative) 03/06/19 18:36 Urine Bilirubin Negative (Negative) 03/06/19 18:36 Urine Urobilinogen Negative (Negative) 03/06/19 18:36 Ur Leukocyte Esterase Negative (Negative) 03/06/19 18:36 Urine WBC (Auto) Trace(0-5/hpf) (Absent) 03/06/19 18:36 Urine RBC (Auto) Absent (Absent) 03/06/19 18:36 Urine Bacteria Absent (Absent) 03/06/19 18:36 Hyaline Casts Present (Absent) A 03/06/19 18:36 Urine Glucose Negative (Negative) 03/06/19 18:36 Vancomycin Trough 21.4 mcg/mL 03/10/19 08:56 IgA 456 mg/dL (61 - 356) H 03/07/19 21:38 Tiss Transglutamin IgG <1.2 U/mL 03/07/19 21:38 Tiss Transglutamin IgA 3.4 U/mL 03/07/19 21:38 Blood Type O Positive 03/06/19 16:43 Antibody Screen Negative 03/06/19 16:43 Crossmatch See Detail 03/06/19 16:43
[2019-03-10] MEDS: Tamsulosin CAP* 0.4 MG PO SCH (17:19)
[2019-03-10] MEDS: Atorvastatin* 20 MG TAB PO SCH (17:19)
[2019-03-10] MEDS: Lisinopril TAB* 10 MG PO SCH (17:19)
--- NOTE | 2019-03-10 23:09 | CONS ---
CC: Dr. Rhoades * GASTROENTEROLOGY CONSULT REPORT: DATE OF CONSULT: 03/10/19 REQUESTING PROVIDER: Dr. Rhoades. REASON FOR CONSULT: Iron deficiency anemia. HISTORY OF PRESENT ILLNESS: Mr. Golden is a 68-year-old gentleman with history of type 2 diabetes, peripheral vascular disease, stroke, hypertension, hyperlipidemia, atrial fibrillation on Coumadin, and osteomyelitis with toe amputation, who is admitted for toe infection. He was noted to have significant iron deficiency anemia for which GI was consulted. Mr. Golden was admitted on 03/06/19. He had a fever at home and had been complaining of increased pain and redness on the right foot. Currently, he is being treated with antibiotics. There is a plan for toe amputation on . While in the ER, the patient was noted to have a hemoglobin of 6.9. This decreased to 6.4 on 03/07/19. He was transfused 3 units of blood. Repeat hemoglobin 8.5. Labs notable for significant iron deficiency with ferritin of 8.5 and a percent saturation of 4. The patient is on Coumadin at baseline. Iron anemia deficiency anemia was noted in the past. EGD and colonoscopy were performed in 2012. EGD was unremarkable. Colonoscopy was notable for a cecal polyp, although no report of size of this polyp was included in the procedure report. . On interview, Mr. Golden denies any GI symptoms. He has no nausea, vomiting, dysphagia, abdominal pain, diarrhea or constipation. He has regular bowel movements, which are brown. No unintentional weight loss. PAST MEDICAL HISTORY: 1. Diabetes. 2. Peripheral vascular disease. 3. History of stroke. 4. Hypertension. 5. Hyperlipidemia. 6. Depression. 7. History of iron deficiency anemia. 8. Atrial fibrillation, status post cardioversion x2. 9. History of osteomyelitis. PAST SURGICAL HISTORY: 1. Mitral valve repair. 2. Removal of infected pacer wires due to endocarditis. 3. Carotid endarterectomy. 4. Tonsillectomy. 5. Right toe amputation. HOME MEDICATIONS: 1. Iron sulfate 65 mg at bedtime. 2. Tamsulosin 0.4 at bedtime. 3. Sertraline 150 every morning. 4. Protonix 40 mg every morning. 5. Mag-Ox 400 mg twice daily. 6. Coumadin. 7. Lisinopril 10 mg every evening. 8. Atorvastatin 20 mg every evening. 9. Vitamin C 500 mg every evening. ALLERGIES: Allergic to peanuts, XARELTO, CIPROFLOXACIN, TERAZOSIN, IV contrast , environmental allergies. FAMILY HISTORY: No known GI or liver disease. SOCIAL HISTORY: The patient is . Drinks alcohol regularly. Non- smoker. No drug use. REVIEW OF SYSTEMS: A complete review of systems is negative except as above. PHYSICAL EXAM: Vital Signs: Afebrile, heart 60s to 70s, blood pressure 140s to 150 over 40s to 50s, oxygen saturation 96 to 99% on room air. General: Pleasant gentleman in no acute distress. Sitting at the edge of the bed. at bedside. HEENT: Mucous membranes moist. Cardiovascular: Regular rate and rhythm. Pulmonary: Breathing comfortably. Lungs are clear. Abdomen: Soft, nontender, nondistended. Extremities: Infected toe not examined. DIAGNOSTIC STUDIES/LAB DATA: Labs reviewed. Hemoglobin manny was 6.4 on . Now up to 8.5 and stable after 3 units of blood. White count is 7.6 today. MCV was 71 at its lowest. INR is 1.98 today. CRP quite elevated to 134. Ferritin 8, TSAT 4. Creatinine 1.54. Imaging: No abdominal imaging recently. IMPRESSION AND RECOMMENDATION: Mr. Golden is a 68-year-old gentleman with a history diabetes, peripheral vascular disease, history of stroke, and history of atrial fibrillation on Coumadin, who is admitted with foot infection with a plan to go to the OR for toe amputation on . Noted to have acute on chronic iron deficiency anemia requiring several units of blood. GI consulted. The patient denies any overt GI bleeding. No GI symptoms. A history of iron deficiency anemia in 2012 for which an EGD and colposcopy were performed and were negative. Current presentation certainly warrants repeat endoscopic evaluation. The patient's Coumadin is currently being held. He is going to the OR tomorrow. Tentatively plan for EGD and colonoscopy on Friday assuming the patient is feeling well after the surgery tomorrow and is able to start his prep. We would consider outpatient capsule endoscopy if EGD and colonoscopy are unrevealing. Dr. Ornelas will reassess the patient tomorrow to ensure he is able to move forward with the prep as tentatively planned. Thank you very much for this consult. GI will continue to follow. [id number] #: [id number] MTDD
[2019-03-11] MEDS: D5W 1/2 NS KCl 20 Meq 1000 ML* 1,000 ML IV SCH (01:15)
[2019-03-11] MEDS: ZOSYN 3.375 GM Q8H per EXTENDED INFUSION IVPB SCH ×6 (02:22→18:12)
[2019-03-11 06:25] LABS: ABS Eosinophils 0.1 10^3/ul (0-0.6); ABS Lymphocytes 0.8 10^3/ul (1.0-4.8); ABS Monocytes 0.7 10^3/ul (0-0.8); ABS Neutrophils 5.1 10^3/ul (1.5-7.7); Eosinophil % 1.3 %; Hematocrit 27 % (42-52); Hemoglobin 8.5 g/dL (14.0-18.0); Mean Corpuscular HGB Conc 32 g/dL (31-36); Mean Corpuscular Hemoglobin 24 pg (27-31); Mean Corpuscular Volume 75 fL (80-94); Mean Platelet Volume 7.9 fL (7.4-10.4); Nucleated Red Blood Cells % 0.1; Platelet Count 180 10^3/uL (150-450); Red Blood Count 3.53 10^6 /uL (4.18-5.48); Red Cell Distribution Width 20 % (10-15); White Blood Count 6.7 10^3/uL (3.5-10.8)
[2019-03-11 06:28] LABS: INR 1.31 (0.82-1.09)
[2019-03-11 06:59] LABS: BUN/Creatinine Ratio 12.1 (8-20); Calcium 9.2 mg/dL (8.6-10.3); EGFR African American 50.2 (>60); EGFR Non-African American 41.4 (>60); Potassium 3.9 mmol/L (3.5-5.0)
[2019-03-11] MEDS: Magnesium Oxide TAB* 400 MG PO SCH ×2 (07:57→22:00)
[2019-03-11] MEDS: Folic Acid TAB* 1 MG PO SCH (07:57)
[2019-03-11] MEDS: Dronedarone TAB* 400 MG PO SCH ×2 (07:57→18:12)
[2019-03-11] MEDS: Ferrous Sulfate TAB* 325 MG PO SCH (07:57)
[2019-03-11] MEDS: Ascorbic Acid TAB* 500 MG PO SCH (07:57)
[2019-03-11] MEDS: Sertraline* 50 MG TAB PO SCH (07:58)
[2019-03-11] MEDS: Thiamine TAB* 100 MG TAB PO SCH (07:58)
[2019-03-11] MEDS: Pantoprazole TAB * 40 MG TAB PO SCH (07:58)
[2019-03-11] MEDS: Multivitamins/Minerals TAB PO SCH (07:58)
--- NOTE | 2019-03-11 08:36 | PN ---
Subjective - Subjective Reason for Note: Progress Note History: He is feeling well today. He has had no fevers or sweats. He has no chest pain, shortness of breath, palpitations. He has no cough or sputum. His digestion is normal with no major hemorrhage. Urination is normal. He is ready for todays amputation. 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 Diabetic retinopathy (Chronic) E11.319 Essential hypertension (Chronic) I10 History of SBE (subacute bacterial endocarditis) (Chronic) Z86.79 Hyperlipidemia (Chronic) E78.5 Mitral valve replacement xenograft (Chronic) Peripheral vascular disease (Chronic) I73.9 Current Medications: Current Medications Acetaminophen (Tylenol Tab*) 650 mg PO Q4H PRN PRN Reason: FEVER/PAIN Ascorbic Acid (Vitamin C Tab*) 250 mg PO EVERY OTHER DAY [facility] Last Admin: 03/11/19 07:57 Dose: Not Given Atorvastatin Calcium (Lipitor*) 20 mg PO QPM [facility] Last Admin: 03/10/19 17:19 Dose: 20 mg Dronedarone (Multaq Tab*) 400 mg PO BID WITH MEALS [facility] Last Admin: 03/11/19 07:57 Dose: Not Given Ferrous Sulfate (Ferrous Sulfate Tab*) 325 mg PO EVERY OTHER DAY [facility] Last Admin: 03/11/19 07:57 Dose: Not Given Folic Acid (Folvite Tab*) 1 mg PO DAILY [facility] Last Admin: 03/11/19 07:57 Dose: Not Given Piperacillin Sod/Tazobactam (Sod 3.375 gm/ Sodium Chloride) 100 mls @ 25 mls/ hr IVPB Q8H [facility] Last Admin: 03/11/19 02:22 Dose: 25 mls/hr Potassium Chloride/Dextrose (D5w 1/2 Ns Kcl 20 Meq 1000 Ml*) 1,000 mls @ 75 mls /hr IV PER RATE [facility] Last Admin: 03/11/19 01:15 Dose: 75 mls/hr Lisinopril (Prinivil Tab*) 10 mg PO QPM [facility] Last Admin: 03/10/19 17:19 Dose: 10 mg Lorazepam (Ativan Tab(*)) 0 - 6 mg PO .PER [facility] PROTOCOL [facility]; Protocol Magnesium Oxide (Magox 400 Tab*) 400 mg PO BID [facility] Last Admin: 03/11/19 07:57 Dose: Not Given Multivitamins/Minerals (Theragran/Minerals Tab*) 1 tab PO DAILY [facility] Last Admin: 03/11/19 07:58 Dose: Not Given Pantoprazole Sodium (Protonix Tab*) 40 mg PO QAM [facility] Last Admin: 03/11/19 07:58 Dose: Not Given Pharmacy Consult (Zosyn Per Pharmacy*) 1 note FOLLOW UP .ZOSYN PER PHARMACY [facility] Sertraline HCl (Zoloft*) 150 mg PO QAM [facility] Last Admin: 03/11/19 07:58 Dose: Not Given Tamsulosin HCl (Flomax Cap*) 0.4 mg PO QPM [facility] Last Admin: 03/10/19 17:19 Dose: 0.4 mg Thiamine HCl (Vitamin B-1 Tab*) 100 mg PO DAILY [facility] Last Admin: 03/11/19 07:58 Dose: Not Given Home Medications: Home Medications Medication Instructions Recorded Confirmed Type Lisinopril 10 mg PO QPM 04/09/13 03/06/19 History Pantoprazole TAB * [Protonix TAB 40 mg PO QA 04/09/13 03/06/19 History (NF)] Sertraline HCl 150 mg PO QAM 04/09/13 03/06/19 History Atorvastatin* [Lipitor 40 MG*] 20 mg PO QPM 07/21/13 03/06/19 History Ascorbic Acid TAB* [Vitamin C 500 mg PO QPM 01/22/14 03/06/19 History TAB*] Ferrous Sulfate [Iron] 65 mg PO QPM 08/03/14 03/06/19 History Magnesium Oxide [Magnesium Oxide-] 400 mg PO BID 08/03/14 03/06/19 History Tamsulosin CAP* [Flomax CAP*] 0.4 mg PO QPM 08/03/14 03/06/19 History Warfarin Sodium 5 mg PO SUTUWEFR 08/03/14 03/06/19 History Allergies: Allergies Allergy/AdvReac Type Severity Reaction Status Date / Time peanut Allergy Severe Anaphylatic Verified 03/06/19 16:19 Shock rivaroxaban [From Xarelto] Allergy Severe Anaphylatic Verified 03/06/19 16:19 Shock ciprofloxacin Allergy Intermediate Edema Verified 03/06/19 16:19 terazosin Allergy Intermediate Rash Verified 03/06/19 16:19 Iodinated Contrast- Oral and Allergy Unknown Unknown Verified 03/06/19 16:19 IV Dye Reaction Details ENVIRONMENTAL/SEASONAL Allergy Congestion Uncoded 03/06/19 16:19 Objective - Vital Signs Vital Signs: Vital Signs 03/10/19 03/10/19 03/10/19 10:55 15:30 18:15 Temperature 98.2 F 98.1 F Pulse Rate 72 69 Respiratory 20 18 Rate Blood Pressure 155/49 144/55 (mmHg) O2 Sat by Pulse 96 99 97 Oximetry 03/10/19 03/10/19 03/10/19 19:43 20:00 22:45 Temperature 98.5 F 98.2 F Pulse Rate 66 66 Respiratory 20 20 20 Rate Blood Pressure 159/53 150/52 (mmHg) O2 Sat by Pulse 98 97 Oximetry 03/11/19 02:37 Temperature 97.9 F Pulse Rate 68 Respiratory 20 Rate Blood Pressure 151/44 (mmHg) O2 Sat by Pulse 97 Oximetry - Intake and Output Intake and Output: Intake & Output 03/08/19 03/09/19 03/10/19 03/11/19 11:59 11:59 11:59 11:59 Intake Total 4125 1500 1343 1830 Output Total 100 Balance 4125 1500 1243 1830 Weight 195 lb 1.6 oz Intake: IV Fluids 964 200 169 452 ABX - VANCOMYCIN 250 ABX - ZOSYN 100 100 D5W 1/2 NS 20 meq KCL 412 NS (0.9%) 100 169 40 PRBC 614 IVPB 651 350 451 308 ABX - VANCOMYCIN 250 250 250 ABX - ZOSYN 100 100 201 300 NS (0.9%) 8 PRBC 301 Oral 2510 052 384 7107 Packed Cells 303 Output: Urine 100 Other: Estimated Void Medium Large # Bowel Movements 1 0 0 Estimated Stool Amount Large Large # Voids 0 2 1 2 ADLs: Meal Record Start: 03/06/19 19: 20 Freq: DAILY@0900,1400,1800 Status: Active Protocol: Created 03/06/19 19:20 System (Rec: 03/06/19 19:20 System MED-M19) Document 03/07/19 09:00 [id number] (Rec: 03/07/19 16:07 [id number] MED-C09) Document 03/07/19 14:00 [id number] (Rec: 03/07/19 16:09 [id number] MED-C09) Document 03/07/19 18:00 [id number] (Rec: 03/07/19 20:57 [id number] MED-C07) Document 03/08/19 09:00 [id number] (Rec: 03/08/19 09:03 [id number] MED-C11) Document 03/08/19 13:15 [id number] (Rec: 03/08/19 13:15 [id number] MED-C11) Document 03/08/19 18:00 [id number] (Rec: 03/08/19 18:35 [id number] MED-C09) Document 03/09/19 09:00 [id number] (Rec: 03/09/19 09:36 [id number] MED-C11) Document 03/09/19 14:00 [id number] (Rec: 03/09/19 14:40 [id number] MED-C11) Document 03/09/19 18:00 [id number] (Rec: 03/09/19 18:23 [id number] MED-C14) Document 03/10/19 09:00 [id number] (Rec: 03/10/19 09:34 [id number] MED-C11) Document 03/10/19 13:49 [id number] (Rec: 03/10/19 13:50 [id number] MED-C11) Document 03/10/19 18:00 [id number] (Rec: 03/10/19 18:40 [id number] MED-C09) Intake and Output Start: 03/06/19 16: 11 Freq: Status: Active Protocol: Created 03/06/19 16:11 System (Rec: 03/06/19 16:11 System ED-C24) Document 03/09/19 17:51 [id number] (Rec: 03/09/19 17:52 [id number] MED-C07) Intake and Output Start: 03/06/19 19: 20 Freq: DAILY@0600,1400,2200 Status: Active Protocol: Created 03/06/19 19:20 System (Rec: 03/06/19 19:20 System MED-M19) Document 03/07/19 05:59 [id number] (Rec: 03/07/19 06:01 [id number] MED-C09) Document 03/07/19 14:00 [id number] (Rec: 03/07/19 16:09 [id number] MED-C09) Document 03/07/19 22:00 [id number] (Rec: 03/07/19 22:34 [id number] MED-C07) Document 03/08/19 05:51 [id number] (Rec: 03/08/19 05:52 [id number] MED-C09) Document 03/08/19 07:27 [id number] (Rec: 03/08/19 07:27 [id number] MED-M22) Document 03/08/19 13:15 [id number] (Rec: 03/08/19 13:15 [id number] MED-C11) Document 03/08/19 20:37 [id number] (Rec: 03/08/19 20:39 [id number] MED-C07) Document 03/09/19 05:38 [id number] (Rec: 03/09/19 05:38 [id number] MED-C07) Document 03/09/19 12:42 [id number] (Rec: 03/09/19 12:42 [id number] MED-C11) Document 03/09/19 21:54 [id number] (Rec: 03/09/19 21:56 [id number] MED-C07) Document 03/10/19 06:00 [id number] (Rec: 03/10/19 06:55 [id number] MED-M25) Document 03/10/19 13:49 [id number] (Rec: 03/10/19 13:50 [id number] MED-C11) Document 03/10/19 22:00 [id number] (Rec: 03/10/19 22:14 PED2011 MED-C15) Document 03/11/19 06:00 [id number] (Rec: 03/11/19 06:11 [id number] MED-C16) - Physical Exam General: No Cyanosis, No Anemia, No Jaundice, No Clubbing Lungs and Chest: Yes: Chest Expansion Full, Chest Expansion Symetrica, Percussion Note Resonant, Vessicular Breath Sounds. No: Crackles, Wheezes Heart Rate and Rhythm: Regular JVP: Not Elevated Additional Cardiovascular: Yes: Normal Heart Sounds. No: Heart Murmur, Pedal Edema Abdominal Exam: Yes: Distention, Abdominal Tenderness. No: Soft, Bowel Sounds Present Results - Results Lab Results: Laboratory Results - last 24 hr 03/10/19 03/10/19 03/11/19 08:56 21:28 06:09 WBC RBC Hgb Hct MCV MCH MCHC RDW Plt Count MPV Neut % (Auto) Lymph % (Auto) Morton % (Auto) Eos % (Auto) Baso % (Auto) Absolute Neuts (auto) Absolute Lymphs (auto) Absolute Monos (auto) Absolute Eos (auto) Absolute Basos (auto) Absolute Nucleated RBC Nucleated RBC % INR (Anticoag Therapy) 1.31 H Sodium Potassium Chloride Carbon Dioxide Anion Gap BUN Creatinine Est GFR ( Amer) Est GFR (Non-Af Amer) BUN/Creatinine Ratio Glucose POC Glucose (mg/dL) 205 H Calcium Vancomycin Trough 21.4 03/11/19 03/11/19 06:09 06:09 WBC 6.7 RBC 3.53 L Hgb 8.5 L Hct 27 L MCV 75 L MCH 24 L MCHC 32 RDW 20 H Plt Count 180 MPV 7.9 Neut % (Auto) 75.5 Lymph % (Auto) 12.0 Morton % (Auto) 10.7 Eos % (Auto) 1.3 Baso % (Auto) 0.5 Absolute Neuts (auto) 5.1 Absolute Lymphs (auto) 0.8 L Absolute Monos (auto) 0.7 Absolute Eos (auto) 0.1 Absolute Basos (auto) 0.0 Absolute Nucleated RBC 0.0 Nucleated RBC % 0.1 INR (Anticoag Therapy) Sodium 140 Potassium 3.9 Chloride 112 H Carbon Dioxide 20 L Anion Gap 8 BUN 20 Creatinine 1.65 H Est GFR ( Amer) 50.2 Est GFR (Non-Af Amer) 41.4 BUN/Creatinine Ratio 12.1 Glucose 178 H POC Glucose (mg/dL) Calcium 9.2 Vancomycin Trough Assessment - Problem List Assessment: Patient Problems Cellulitis of foot, right (Acute) Iron deficiency anemia (Acute) Osteomyelitis of toe of right foot (Acute) Positive fecal occult blood test (Acute) Alcohol dependence (Chronic) Atrial fibrillation (Chronic) Cerebrovascular disease (Chronic) Depressive disorder (Chronic) Diabetes mellitus type 2 (Chronic) Diabetic foot ulcer (Chronic) Diabetic peripheral neuropathy (Chronic) Diabetic renal disease (Chronic) Diabetic retinopathy (Chronic) Essential hypertension (Chronic) History of SBE (subacute bacterial endocarditis) (Chronic) Hyperlipidemia (Chronic) Mitral valve replacement xenograft (Chronic) Peripheral vascular disease (Chronic) Plan: Cellulitis/abcess of right foot - for amputation today of affected area GI hemorrhage/anemia - no macroscopic bleeding. I reviewed Dr. Anca Fountain's detailed GI consultation. She is planning an EGD and colonoscopy for tomorrow - if he can have the bowel prep. If this is negative - she will consider a capsule endoscopy as an outpatient Anticoagulation for history of atrial fibrillation - this is held at present. INR 1.31 today He requires no further risk stratification or cameron-operative measures. I discussed the above with the patient and his Cathie.
[2019-03-11] MEDS ORDERED: Lidocaine 2% PF* 10 ML AMP ONE (10:57)
[2019-03-11] MEDS ORDERED: Bupivacaine 0.5%* 50 ML MDV VIAL ONE (10:57)
[2019-03-11] MEDS ORDERED: Midazolam* 1 MG/ML 2 ML VIAL (2 MG) ONE (11:28)
[2019-03-11] MEDS ORDERED: fentaNYL* 50 MCG/ML 2 ML VIAL (100 MCG VIAL) ONE (11:28)
[2019-03-11] MEDS ORDERED: Propofol* 10 MG/ML 20 ML BTL ONE (12:02)
[2019-03-11] MEDS ORDERED: Naloxone* 0.4 MG/ML 1 ML VIAL IV PRN (12:15)
[2019-03-11] MEDS ORDERED: Ondansetron INJ* 2 MG/ML VIAL IV PRN (12:15)
[2019-03-11] MEDS ORDERED: oxyCODONE/Acetamin 5/325 MG* TAB PO PRN (12:15)
[2019-03-11] MEDS ORDERED: fentaNYL* 50 MCG/ML 2 ML VIAL (100 MCG VIAL) IV PRN (12:15)
--- NOTE | 2019-03-11 13:08 | OP ---
Operative Report - Blank - Operative Report Date of Operation: 03/11/19 Note: PATIENT: Henrique Golden DATE OF : 1950 DATE OF SURGERY: 03/11/2019 SURGEON: Toy Rollins MD COMBINATION PRESSER: PRANEETH Rodriguez, whos assistance was necessary for positioning, retraction, help with instrumentation, and closure. ANESTHESIOLOGIST: Dr. Jones PREOPERATIVE DIAGNOSIS: Right diabetic foot ulcer, infection, 2nd toe and metatarsal head osteomyelitis, gastrocnemius contracture. POSTOPERATIVE DIAGNOSIS: Right diabetic foot ulcer, 2nd toe and metatarsal head osteomyelitis, gastrocnemius contracture. OPERATION: 1. Right foot irrigation and debridement 2. Right 2nd toe amputation at the level of the MTP joint 3. Right 2nd metatarsal head excision 4. Right gastrocnemius recession ANESTHESIA: MAC IMPLANTS: none TOURNIQUET TIME: Less than 60 minutes with a well-padded thigh tourniquet at 250 mmHg. SPECIMENS: Toe and metatarsal head to pathology. Culture swabs to microbiology. ESTIMATED BLOOD LOSS: minimal COMPLICATIONS: none STATUS: Stable from the operating room to the recovery room. INDICATIONS FOR PROCEDURE: Henrique has diabetic neuropathy and a h/o a prior hallux amputation. He developed a forefoot ulcer and an underlying infection. MRI did reveal osteomyelitis. Both operative and non operative treatment alternatives were reviewed at length. Further, the nature and risks of surgery were reviewed in careful detail. Our discussions regarding the risks of surgery included, but were not limited to, wound infection, wound problems, nerve injury, neuroma, RSD, persistent symptoms, blood clot, persistent or worsening infection, failure of the surgery, need for further amputation, and even the remote chance of catastrophic complication, including loss of limb. DESCRIPTION OF PROCEDURE: The patient was seen in the preoperative holding unit and informed written consent was obtained. The appropriate extremity was marked. The patient was then brought to the operating room and carefully positioned on the operating room table. Anesthesia was induced. All bony prominences were padded with great care. A chlorhexidine based pre-scrub was performed followed by a chloraprep prep and drape in standard sterile fashion. A surgical safety pause was then conducted in which we confirmed the appropriate patient, extremity, planned procedure, availability of equipment, indication and administration of antibiotics, and DVT prophylaxis in the form of a compression boot on the non- surgical extremity. I began with application of an ankle Esmarch tourniquet. Care was taken not to compress the infected toe. I began with Esmarch exsanguination of the limb and inflated the tourniquet. I then made an approximately 3-cm incision at the posteromedial calf. I carried the dissection through the soft tissue and divided the crural fascia longitudinally. I then exposed the fascia of the gastrocnemius muscle. Great care was taken to protect the sural nerve throughout this procedure. I cleared all adhesions from the posterior aspect of the gastrocnemius fascia and then transected this in its entirety from medially to laterally. I then identified the plantaris tendon, which was also tight medially. This was transected. These procedures had the effect of improving the ankle dorsiflexion to approximately 10 degrees. I then again confirmed that the sural nerve was in continuity. We irrigated copiously. We then used #3-0 Monocryl for the subdermal layer and bree for the skin. I then made an incision to remove the distal aspect of the toe. I maintained as much healthy soft-tissue length as was possible. The phalanges were dissected out and the toe was amputated at the level of the MTP joint. The toe was then sent to pathology. There was alina pus surrounding the plantar aspect of the proximal phalanx. This pus was cultured and sent to microbiology. I then extended the dorsal limb of the incision proximally to expose the second metatarsal head. A small oscillating saw blade was used to excise the distal aspect of the second metatarsal. This was also sent to pathology. I then sharply debrided any nonviable and infected-appearing tissue with a 15 blade scalpel. This included subcutaneous tissue, and deep fascial tissue, periosteum , and down to bone. Once all grossly infected tissue was debrided, a thorough irrigation was performed with sterile saline. We then closed with 3-0 monocryl and then 3-0 nylon and then placed a sterile dressing. A splint was placed with the ankle in a neutral position. The patient was then awakened from anesthesia and transferred to the recovery room in stable condition. There were no complications. All needle and sponge counts were correct at the end of the case. ATTESTATION: I attest I was present and scrubbed and performed the critical portions of the procedure myself. POSTOPERATIVE PLAN: He will remain nonweightbearing. We will likely leave the sutures in for 2-3 weeks. Antibiotic treatment will be guided by the infectious disease service.
[2019-03-11] MEDS ORDERED: Magnesium Hydroxide LIQ* 30 ML UDC PO PRN (14:23)
[2019-03-11] MEDS ORDERED: PEG 3000 GI LAVAGE* 1 GALLON PO ONE (17:43)
--- NOTE | 2019-03-11 17:46 | PN ---
Progress Note - Progress Note Date of Service: 03/11/19 Note: pt seen, sleep from surgery VSS obese, soft +BS anemic; planned for EGD/colon on Friday; prep tonight pt understands need to drink all prep Layo Ornelas MD [facility]
[2019-03-11] MEDS: Tamsulosin CAP* 0.4 MG PO SCH (18:11)
[2019-03-11] MEDS: Lisinopril TAB* 10 MG PO SCH (18:12)
[2019-03-11] MEDS: Acetaminophen TAB* 325 MG PO PRN (18:15)
[2019-03-11] MEDS: Atorvastatin* 20 MG TAB PO SCH (18:30)
[2019-03-11] MEDS: Docusate CAP* 100 MG PO SCH (22:01)
[2019-03-11] MEDS: Magnesium Hydroxide LIQ* 30 ML UDC PO SCH (22:01)
[2019-03-12] MEDS: ZOSYN 3.375 GM Q8H per EXTENDED INFUSION IVPB SCH ×6 (02:15→20:18)
[2019-03-12] MEDS: Acetaminophen TAB* 325 MG PO PRN (04:54)
[2019-03-12 06:13] LABS: ABS Eosinophils 0.1 10^3/ul (0-0.6); ABS Lymphocytes 0.5 10^3/ul (1.0-4.8); ABS Monocytes 0.7 10^3/ul (0-0.8); ABS Neutrophils 5.9 10^3/ul (1.5-7.7); Eosinophil % 1.1 %; Hematocrit 26 % (42-52); Hemoglobin 8.6 g/dL (14.0-18.0); Mean Corpuscular HGB Conc 33 g/dL (31-36); Mean Corpuscular Hemoglobin 25 pg (27-31); Mean Corpuscular Volume 76 fL (80-94); Mean Platelet Volume 8.4 fL (7.4-10.4); Platelet Count 176 10^3/uL (150-450); Red Blood Count 3.46 10^6 /uL (4.18-5.48); Red Cell Distribution Width 20 % (10-15); White Blood Count 7.2 10^3/uL (3.5-10.8)
[2019-03-12 06:28] LABS: BUN/Creatinine Ratio 11.2 (8-20); Calcium 9.1 mg/dL (8.6-10.3); EGFR African American 59.2 (>60); EGFR Non-African American 48.9 (>60); Potassium 3.9 mmol/L (3.5-5.0)
[2019-03-12] MEDS: Sertraline* 50 MG TAB PO SCH (07:32)
[2019-03-12] MEDS: Pantoprazole TAB * 40 MG TAB PO SCH (07:32)
[2019-03-12] MEDS: Dronedarone TAB* 400 MG PO SCH ×2 (07:38→20:18)
[2019-03-12] MEDS: Docusate CAP* 100 MG PO SCH ×2 (07:39→20:18)
[2019-03-12] MEDS: Magnesium Oxide TAB* 400 MG PO SCH ×2 (07:39→20:18)
[2019-03-12] MEDS: Folic Acid TAB* 1 MG PO SCH (07:39)
[2019-03-12] MEDS: Magnesium Hydroxide LIQ* 30 ML UDC PO SCH ×2 (07:39→20:19)
[2019-03-12] MEDS: Multivitamins/Minerals TAB PO SCH (07:40)
[2019-03-12] MEDS: Thiamine TAB* 100 MG TAB PO SCH (07:40)
--- NOTE | 2019-03-12 08:30 | PN ---
Subjective - Subjective Reason for Note: Progress Note History: Her tolerated the amputation of his second toe yesterday. The preparation for the colonoscopy was demoralizing overnight. However, he is passing more-or- less clear stool. He has seen no blood in his stool. He has no other new symptoms. 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 Diabetic retinopathy (Chronic) E11.319 Essential hypertension (Chronic) I10 History of SBE (subacute bacterial endocarditis) (Chronic) Z86.79 Hyperlipidemia (Chronic) E78.5 Mitral valve replacement xenograft (Chronic) Peripheral vascular disease (Chronic) I73.9 Current Medications: Current Medications Acetaminophen (Tylenol Tab*) 650 mg PO Q4H PRN PRN Reason: FEVER/PAIN Last Admin: 03/12/19 04:54 Dose: 650 mg Ascorbic Acid (Vitamin C Tab*) 250 mg PO EVERY OTHER DAY [facility] Last Admin: 03/11/19 07:57 Dose: Not Given Atorvastatin Calcium (Lipitor*) 20 mg PO QPM [facility] Last Admin: 03/11/19 18:30 Dose: 20 mg Docusate Sodium (Colace Cap*) 100 mg PO BID [facility] Last Admin: 03/12/19 07:39 Dose: Not Given Dronedarone (Multaq Tab*) 400 mg PO BID WITH MEALS [facility] Last Admin: 03/12/19 07:38 Dose: Not Given Ferrous Sulfate (Ferrous Sulfate Tab*) 325 mg PO EVERY OTHER DAY [facility] Last Admin: 03/11/19 07:57 Dose: Not Given Folic Acid (Folvite Tab*) 1 mg PO DAILY [facility] Last Admin: 03/12/19 07:39 Dose: Not Given Piperacillin Sod/Tazobactam (Sod 3.375 gm/ Sodium Chloride) 100 mls @ 25 mls/ hr IVPB Q8H [facility] Last Admin: 03/12/19 02:15 Dose: 25 mls/hr Potassium Chloride/Dextrose (D5w 1/2 Ns Kcl 20 Meq 1000 Ml*) 1,000 mls @ 75 mls /hr IV PER RATE [facility] Last Admin: 03/11/19 01:15 Dose: 75 mls/hr Lisinopril (Prinivil Tab*) 10 mg PO QPM [facility] Last Admin: 03/11/19 18:12 Dose: 10 mg Lorazepam (Ativan Tab(*)) 0 - 6 mg PO .PER [facility] PROTOCOL [facility]; Protocol Magnesium Hydroxide (Milk Of Magnesia Liq*) 30 ml PO BID [facility] Last Admin: 03/12/19 07:39 Dose: Not Given Magnesium Hydroxide (Milk Of Magnesia Liq*) 30 ml PO BID PRN PRN Reason: CONSITPATION Magnesium Oxide (Magox 400 Tab*) 400 mg PO BID [facility] Last Admin: 03/12/19 07:39 Dose: Not Given Multivitamins/Minerals (Theragran/Minerals Tab*) 1 tab PO DAILY [facility] Last Admin: 03/12/19 07:40 Dose: Not Given Pantoprazole Sodium (Protonix Tab*) 40 mg PO QAM [facility] Last Admin: 03/12/19 07:32 Dose: 40 mg Pharmacy Consult (Zosyn Per Pharmacy*) 1 note FOLLOW UP .ZOSYN PER PHARMACY [facility] Sertraline HCl (Zoloft*) 150 mg PO QAM [facility] Last Admin: 03/12/19 07:32 Dose: 150 mg Tamsulosin HCl (Flomax Cap*) 0.4 mg PO QPM [facility] Last Admin: 03/11/19 18:11 Dose: 0.4 mg Thiamine HCl (Vitamin B-1 Tab*) 100 mg PO DAILY [facility] Last Admin: 03/12/19 07:40 Dose: Not Given Home Medications: Home Medications Medication Instructions Recorded Confirmed Type Lisinopril 10 mg PO QPM 04/09/13 03/06/19 History Pantoprazole TAB * [Protonix TAB 40 mg PO QAM 04/09/13 03/06/19 History (NF)] Sertraline HCl 150 mg PO QAM 04/09/13 03/06/19 History Atorvastatin* [Lipitor 40 MG*] 20 mg PO QPM 07/21/13 03/06/19 History Ascorbic Acid TAB* [Vitamin C 500 mg PO QPM 01/22/14 03/06/19 History TAB*] Ferrous Sulfate [Iron] 65 mg PO QPM 08/03/14 03/06/19 History Magnesium Oxide [Magnesium Oxide-] 400 mg PO BID 08/03/14 03/06/19 History Tamsulosin CAP* [Flomax CAP*] 0.4 mg PO QPM 08/03/14 03/06/19 History Warfarin Sodium 5 mg PO SUTUWEFR 08/03/14 03/06/19 History Allergies: Allergies Allergy/AdvReac Type Severity Reaction Status Date / Time peanut Allergy Severe Anaphylatic Verified 03/06/19 16:19 Shock rivaroxaban [From Xarelto] Allergy Severe Anaphylatic Verified 03/06/19 16:19 Shock ciprofloxacin Allergy Intermediate Edema Verified 03/06/19 16:19 terazosin Allergy Intermediate Rash Verified 03/06/19 16:19 Iodinated Contrast- Oral and Allergy Unknown Unknown Verified 03/06/19 16:19 IV Dye Reaction Details ENVIRONMENTAL/SEASONAL Allergy Congestion Uncoded 03/06/19 16:19 Objective - Vital Signs Vital Signs: Vital Signs 03/11/19 03/11/19 03/11/19 12:45 12:55 13:05 Temperature 97.5 F Pulse Rate 68 66 64 Respiratory 16 16 14 Rate Blood Pressure 177/81 178/68 174/84 (mmHg) O2 Sat by Pulse 99 96 93 Oximetry 03/11/19 03/11/19 03/11/19 13:20 13:25 13:40 Temperature 98.0 F Pulse Rate 63 63 65 Respiratory 14 16 18 Rate Blood Pressure 170/71 172/76 151/64 (mmHg) O2 Sat by Pulse 94 96 96 Oximetry 03/11/19 03/11/19 03/11/19 14:50 14:55 15:45 Temperature 98.1 F 98.1 F 98.4 F Pulse Rate 66 66 65 Respiratory 20 20 20 Rate Blood Pressure 172/55 172/55 161/56 (mmHg) O2 Sat by Pulse 98 98 97 Oximetry 03/11/19 03/11/19 03/11/19 17:45 20:00 20:11 Temperature 98.8 F 98.5 F Pulse Rate 70 71 Respiratory 20 20 20 Rate Blood Pressure 173/54 175/53 (mmHg) O2 Sat by Pulse 97 96 Oximetry 03/11/19 03/12/19 03/12/19 22:54 00:00 02:32 Temperature 97.9 F 98.1 F Pulse Rate 77 80 Respiratory 18 20 Rate Blood Pressure 164/53 174/57 (mmHg) O2 Sat by Pulse 97 98 98 Oximetry 03/12/19 07:41 Temperature Pulse Rate Respiratory 18 Rate Blood Pressure (mmHg) O2 Sat by Pulse Oximetry - Intake and Output Intake and Output: Intake & Output 03/09/19 03/10/19 03/11/19 03/12/19 11:59 11:59 11:59 11:59 Intake Total 1500 1343 1830 1350 Output Total 100 Balance 1500 1243 1830 1350 Intake: IV Fluids 200 169 452 750 ABX - ZOSYN 100 100 D5W 1/2 NS 20 meq KCL 412 LR 650 NS (0.9%) 100 169 40 IVPB 350 451 308 120 ABX - VANCOMYCIN 250 250 ABX - ZOSYN 100 201 300 100 NS (0.9%) 8 20 Oral 109 547 3581 480 Packed Cells 303 Output: Urine 100 Other: Estimated Void Large # Bowel Movements 0 0 2 Estimated Stool Amount Large # Voids 2 1 2 1 ADLs: Meal Record Start: 03/06/19 19: 20 Freq: DAILY@0900,1400,1800 Status: Active Protocol: Created 03/06/19 19:20 System (Rec: 03/06/19 19:20 System MED-M19) Document 03/07/19 09:00 [id number] (Rec: 03/07/19 16:07 [id number] MED-C09) Document 03/07/19 14:00 [id number] (Rec: 03/07/19 16:09 [id number] MED-C09) Document 03/07/19 18:00 [id number] (Rec: 03/07/19 20:57 [id number] MED-C07) Document 03/08/19 09:00 [id number] (Rec: 03/08/19 09:03 [id number] MED-C11) Document 03/08/19 13:15 [id number] (Rec: 03/08/19 13:15 [id number] MED-C11) Document 03/08/19 18:00 [id number] (Rec: 03/08/19 18:35 [id number] MED-C09) Document 03/09/19 09:00 [id number] (Rec: 03/09/19 09:36 [id number] MED-C11) Document 03/09/19 14:00 [id number] (Rec: 03/09/19 14:40 [id number] MED-C11) Document 03/09/19 18:00 [id number] (Rec: 03/09/19 18:23 [id number] MED-C14) Document 03/10/19 09:00 [id number] (Rec: 03/10/19 09:34 [id number] MED-C11) Document 03/10/19 13:49 [id number] (Rec: 03/10/19 13:50 [id number] MED-C11) Document 03/10/19 18:00 [id number] (Rec: 03/10/19 18:40 [id number] MED-C09) Document 03/11/19 09:00 [id number] (Rec: 03/11/19 09:40 [id number] MED-C14) Document 03/11/19 12:57 [id number] (Rec: 03/11/19 12:57 [id number] MED-C09) Document 03/11/19 18:00 [id number] (Rec: 03/11/19 18:11 [id number] MED-C11) Intake and Output Start: 03/06/19 16: 11 Freq: Status: Active Protocol: Created 03/06/19 16:11 System (Rec: 03/06/19 16:11 System ED-C24) Document 03/09/19 17:51 [id number] (Rec: 03/09/19 17:52 [id number] MED-C07) Intake and Output Start: 03/06/19 19: 20 Freq: DAILY@0600,1400,2200 Status: Active Protocol: Created 03/06/19 19:20 System (Rec: 03/06/19 19:20 System MED-M19) Document 03/07/19 05:59 [id number] (Rec: 03/07/19 06:01 [id number] MED-C09) Document 03/07/19 14:00 [id number] (Rec: 03/07/19 16:09 [id number] MED-C09) Document 03/07/19 22:00 [id number] (Rec: 03/07/19 22:34 [id number] MED-C07) Document 03/08/19 05:51 [id number] (Rec: 03/08/19 05:52 [id number] MED-C09) Document 03/08/19 07:27 [id number] (Rec: 03/08/19 07:27 [id number] MED-M22) Document 03/08/19 13:15 [id number] (Rec: 03/08/19 13:15 [id number] MED-C11) Document 03/08/19 20:37 [id number] (Rec: 03/08/19 20:39 [id number] MED-C07) Document 03/09/19 05:38 [id number] (Rec: 03/09/19 05:38 [id number] MED-C07) Document 03/09/19 12:42 [id number] (Rec: 03/09/19 12:42 [id number] MED-C11) Document 03/09/19 21:54 [id number] (Rec: 03/09/19 21:56 [id number] MED-C07) Document 03/10/19 06:00 [id number] (Rec: 03/10/19 06:55 [id number] MED-M25) Document 03/10/19 13:49 [id number] (Rec: 03/10/19 13:50 [id number] MED-C11) Document 03/10/19 22:00 [id number] (Rec: 03/10/19 22:14 [id number] MED-C15) Document 03/11/19 06:00 [id number] (Rec: 03/11/19 06:11 [id number] MED-C16) Document 03/11/19 22:00 [id number] (Rec: 03/11/19 23:26 [id number] MED-C04) Document 03/12/19 05:41 [id number] (Rec: 03/12/19 05:42 [id number] MED-C04) - Physical Exam General Physical Exam Comment: warm and well perfused General: No Cyanosis, Yes Anemia, No Jaundice, No Clubbing Lungs and Chest: Yes: Chest Expansion Full, Chest Expansion Symetrica, Percussion Note Resonant, Vessicular Breath Sounds. No: Crackles, Wheezes Heart Rate and Rhythm: Regular JVP: Not Elevated Additional Cardiovascular: Yes: Normal Heart Sounds. No: Heart Murmur, Pedal Edema Abdominal Exam: Yes: Soft, Bowel Sounds Present. No: Distention, Abdominal Tenderness Results - Results Lab Results: Laboratory Results - last 24 hr 03/11/19 03/12/19 03/12/19 21:13 05:52 05:52 WBC 7.2 RBC 3.46 L Hgb 8.6 L Hct 26 L MCV 76 L MCH 25 L MCHC 33 RDW 20 H Plt Count 176 MPV 8.4 Neut % (Auto) 81.8 Lymph % (Auto) 7.0 [place] % (Auto) 9.6 Eos % (Auto) 1.1 Baso % (Auto) 0.5 Absolute Neuts (auto) 5.9 Absolute Lymphs (auto) 0.5 L Absolute Monos (auto) 0.7 Absolute Eos (auto) 0.1 Absolute Basos (auto) 0.0 Absolute Nucleated RBC 0.0 Nucleated RBC % 0.0 Sodium 142 Potassium 3.9 Chloride 112 H Carbon Dioxide 23 Anion Gap 7 BUN 16 Creatinine 1.43 H Est GFR ( Amer) 59.2 Est GFR (Non-Af Amer) 48.9 BUN/Creatinine Ratio 11.2 Glucose 117 H POC Glucose (mg/dL) 121 H Calcium 9.1 03/12/19 07:29 WBC RBC Hgb Hct MCV MCH MCHC RDW Plt Count MPV Neut % (Auto) Lymph % (Auto) [place] % (Auto) Eos % (Auto) Baso % (Auto) Absolute Neuts (auto) Absolute Lymphs (auto) Absolute Monos (auto) Absolute Eos (auto) Absolute Basos (auto) Absolute Nucleated RBC Nucleated RBC % Sodium Potassium Chloride Carbon Dioxide Anion Gap BUN Creatinine Est GFR ( Amer) Est GFR (Non-Af Amer) BUN/Creatinine Ratio Glucose POC Glucose (mg/dL) 132 H Calcium Assessment - Problem List Assessment: Patient Problems Amputation toe (Acute) Cellulitis of foot, right (Acute) GI hemorrhage (Acute) Iron deficiency anemia (Acute) Osteomyelitis of toe of right foot (Acute) Positive fecal occult blood test (Acute) Alcohol dependence (Chronic) Atrial fibrillation (Chronic) Cerebrovascular disease (Chronic) Depressive disorder (Chronic) Diabetes mellitus type 2 (Chronic) Diabetic foot ulcer (Chronic) Diabetic peripheral neuropathy (Chronic) Diabetic renal disease (Chronic) Diabetic retinopathy (Chronic) Essential hypertension (Chronic) History of SBE (subacute bacterial endocarditis) (Chronic) Hyperlipidemia (Chronic) Mitral valve replacement xenograft (Chronic) Peripheral vascular disease (Chronic) Plan: Amputation toe (Acute) Cellulitis of foot, right (Acute) Osteomyelitis of toe of right foot (Acute) He is 1 day post amputation of right 2nd toe amputation at MTP junction and removal of metatarsal head. He has reasonable pain control. Iron deficiency anemia (Acute) Positive fecal occult blood test (Acute) GI hemorrhage - unknown site of bleeding. He is prepared for an EGD/colonoscopy today. He doesn't require further transfusion Atrial fibrillation (Chronic) anticoagulation - I will h old any anticoagulation until gastroenterology complete their investigations and let me know the risks of restarting. Secondary diagnoses Alcohol dependence (Chronic) cerebrovascular disease (Chronic) Depressive disorder (Chronic) Diabetes mellitus type 2 (Chronic) Diabetic foot ulcer (Chronic) Diabetic peripheral neuropathy (Chronic) Diabetic renal disease (Chronic) Diabetic retinopathy (Chronic) Essential hypertension (Chronic) History of SBE (subacute bacterial endocarditis) (Chronic) Hyperlipidemia (Chronic) Mitral valve replacement xenograft (Chronic) Peripheral vascular disease (Chronic) I explained the above to the patient and he agrees with the management plan.
--- NOTE | 2019-03-12 14:27 | PN ---
Progress Note - Progress Note Date of Service: 03/12/19 SOAP: Subjective: CC: foot infection HPI: 68 year old man with diabetes and 2nd toe infection, tolerated amputation well. Workup for heme positive stools ongoing. No fever, rash, or diarrhea. Objective: Vital Signs Temp 36.8 C 03/12/19 12:00 Pulse 71 03/12/19 12:00 Resp 16 03/12/19 12:00 BP 154/50 03/12/19 08:00 Pulse Ox 99 03/12/19 12:00 Intake & Output 03/11/19 03/12/19 03/12/19 18:59 06:59 18:59 Intake Total 750 600 Balance 750 600 Intake: IV Fluids 750 ABX - ZOSYN 100 LR 650 IVPB 120 ABX - ZOSYN 100 NS (0.9%) 20 Oral 480 Other: # Bowel Movements 2 # Voids 1 Gen:awake, no distress HEENT: no thrush Heart:RRR no murmur Lungs:CTA BL Abd:+BS NTND soft Skin: no rash MSK: Right foot wrapped, foot no erythema Laboratory Results - last 24 hr 03/11/19 03/12/19 03/12/19 21:13 05:52 05:52 WBC 7.2 RBC 3.46 L Hgb 8.6 L Hct 26 L MCV 76 L MCH 25 L MCHC 33 RDW 20 H Plt Count 176 MPV 8.4 Neut % (Auto) 81.8 Lymph % (Auto) 7.0 [place] % (Auto) 9.6 Eos % (Auto) 1.1 Baso % (Auto) 0.5 Absolute Neuts (auto) 5.9 Absolute Lymphs (auto) 0.5 L Absolute Monos (auto) 0.7 Absolute Eos (auto) 0.1 Absolute Basos (auto) 0.0 Absolute Nucleated RBC 0.0 Nucleated RBC % 0.0 Sodium 142 Potassium 3.9 Chloride 112 H Carbon Dioxide 23 Anion Gap 7 BUN 16 Creatinine 1.43 H Est GFR ( Amer) 59.2 Est GFR (Non-Af Amer) 48.9 BUN/Creatinine Ratio 11.2 Glucose 117 H POC Glucose (mg/dL) 121 H Calcium 9.1 03/12/19 07:29 WBC RBC Hgb Hct MCV MCH MCHC RDW Plt Count MPV Neut % (Auto) Lymph % (Auto) [place] % (Auto) Eos % (Auto) Baso % (Auto) Absolute Neuts (auto) Absolute Lymphs (auto) Absolute Monos (auto) Absolute Eos (auto) Absolute Basos (auto) Absolute Nucleated RBC Nucleated RBC % Sodium Potassium Chloride Carbon Dioxide Anion Gap BUN Creatinine Est GFR ( Amer) Est GFR (Non-Af Amer) BUN/Creatinine Ratio Glucose POC Glucose (mg/dL) 132 H Calcium Assessment: 1. Right 2nd toe infection s/p amp and resection metatarsal head. Cellulitis, myositis, acute osteomyelitis due to Grp B strep 2. Diabetes with peripheral neuropathy 3. s/p MV replacement Plan: 1. operative cultures pending, if no other organisms isolated can change antibiotics to ancef 2 gm IV Q8hrs, day for possibility of retained infection in metatarsal.
[2019-03-12] MEDS ORDERED: fentaNYL* 50 MCG/ML 2 ML VIAL (100 MCG VIAL) ONE (15:32)
[2019-03-12] MEDS ORDERED: Midazolam* 1 MG/ML 10 ML VIAL (10 MG) ONE (15:32)
--- NOTE | 2019-03-12 16:19 | PN ---
Progress Note - Progress Note Date of Service: 03/12/19 SOAP: Subjective: []Patient seen at bedside down in GI suite, waiting for colonoscopy for w/u heme positive stools. He has some mild gastroc pain RLE from surgery done yesterday. Overall pain minimal and tolerated. Requesting knee scooter per Physical therapy. Objective: [] Vital Signs Temp 98.2 F 03/12/19 12:00 Pulse 71 03/12/19 12:00 Resp 16 03/12/19 12:00 BP 154/50 03/12/19 08:00 Pulse Ox 99 03/12/19 12:00 Intake & Output 03/11/19 03/12/19 03/12/19 18:59 06:59 18:59 Intake Total 602 910 3142 Balance 732 019 8208 Intake: IV Fluids 750 ABX - ZOSYN 100 LR 650 IVPB 120 517 ABX - ZOSYN 100 200 D5W 1/2 NS 20 meq KCL 317 NS (0.9%) 20 Oral 480 960 Other: Estimated Void Medium # Bowel Movements 2 4 Estimated Stool Amount Medium # Voids 1 3 Laboratory Results - last 24 hr 03/11/19 03/12/19 03/12/19 21:13 05:52 05:52 WBC 7.2 RBC 3.46 L Hgb 8.6 L Hct 26 L MCV 76 L MCH 25 L MCHC 33 RDW 20 H Plt Count 176 MPV 8.4 Neut % (Auto) 81.8 Lymph % (Auto) 7.0 [place] % (Auto) 9.6 Eos % (Auto) 1.1 Baso % (Auto) 0.5 Absolute Neuts (auto) 5.9 Absolute Lymphs (auto) 0.5 L Absolute Monos (auto) 0.7 Absolute Eos (auto) 0.1 Absolute Basos (auto) 0.0 Absolute Nucleated RBC 0.0 Nucleated RBC % 0.0 Sodium 142 Potassium 3.9 Chloride 112 H Carbon Dioxide 23 Anion Gap 7 BUN 16 Creatinine 1.43 H Est GFR ( Amer) 59.2 Est GFR (Non-Af Amer) 48.9 BUN/Creatinine Ratio 11.2 Glucose 117 H POC Glucose (mg/dL) 121 H Calcium 9.1 03/12/19 07:29 WBC RBC Hgb Hct MCV MCH MCHC RDW Plt Count MPV Neut % (Auto) Lymph % (Auto) [place] % (Auto) Eos % (Auto) Baso % (Auto) Absolute Neuts (auto) Absolute Lymphs (auto) Absolute Monos (auto) Absolute Eos (auto) Absolute Basos (auto) Absolute Nucleated RBC Nucleated RBC % Sodium Potassium Chloride Carbon Dioxide Anion Gap BUN Creatinine Est GFR ( Amer) Est GFR (Non-Af Amer) BUN/Creatinine Ratio Glucose POC Glucose (mg/dL) 132 H Calcium Microbiology 03/11/19 12:04 Anaerobic Culture - Preliminary Wound No Growth Day 1 Gram Stain - Final Wound Culture - Preliminary No Growth Day 1 03/06/19 16:43 Aerobic Blood Culture - Final Blood Venous No Growth Day 5 Anaerobic Blood Culture - Final No Growth Day 5 03/06/19 16:43 Aerobic Blood Culture - Final Blood Venous No Growth Day 5 Anaerobic Blood Culture - Final No Growth Day 5 03/07/19 02:11 Gram Stain - Final Foot Right Wound Culture - Final Strep Agalactiae - (Group B) Normal [place] 03/09/19 09:50 Stool Occult Blood (FLAVIO) - Final Stool 03/06/19 18:36 Urine Culture - Final Urine No Growth (<1,000 CFU/mL) 03/06/19 20:57 Stool Occult Blood (FLAVIO) - Final Stool Right foot splint and exposed dressings intact and dry remaining toes without erythema Assessment: []s/p right foot I&D, 2nd toe amputation, metatarsal head resection and right gastroc recession POD #1 Plan: []Per Dr. Cox: operative cultures pending, if no other organisms isolated can change antibiotics to ancef 2 gm IV Q8hrs, day for possibility of retained infection in metatarsal. NWB RLE Follow up with Dr. Rollins ~10 days after discharge
[2019-03-12] MEDS: Lisinopril TAB* 10 MG PO SCH (20:18)
[2019-03-12] MEDS: Atorvastatin* 20 MG TAB PO SCH (20:19)
[2019-03-12] MEDS: Tamsulosin CAP* 0.4 MG PO SCH (20:19)
--- NOTE | 2019-03-12 23:32 | PRO ---
DATE: 03/12/19 - ROOM #414 REFERRING PHYSICIAN: Joseph Rhoades.* PROCEDURE: Upper gastrointestinal endoscopy through distal duodenum; colonoscopy to cecum. INDICATION: This 68-year-old man with diabetes, diabetic foot issues, prior endocarditis, porcine valve replacement, recurring iron deficiency anemia presents once again with iron deficiency anemia. On admission, his hemoglobin was 6.4. His MCV was 71. He has been transfused 3 units and prepped for colonoscopy. He also has a history of atrial fibrillation and has been on Coumadin. He had previously been on other direct anticoagulants. Dr. Graff worked him up for iron deficiency anemia and removed a cecal polyp with snare cautery in 2012. He is currently on Zosyn. Warfarin has been held and his INR yesterday was 1.31. ENDOSCOPIST: Tyree Bergeron MD. MEDICATIONS: Midazolam 7, fentanyl 125. FINDINGS: He is a chronically ill-appearing older man in no overt distress. He was positioned left side down and moderate sedation induced with sequential doses of medication. EGD: Larynx - not seen. Esophagus - easily entered and the mucosa is normal in the upper, mid and lower esophagus with the EG junction at 40 to 41 showing slight irregularity of the Z - line. There is a small sliding hiatal hernia. There are no active erosions. Stomach - generally normal with no blood seen. The rugal folds are normal and antrum normal. The pylorus appears normal. Duodenum - the pylorus, bulb, and second through fourth portions are normal. COLONOSCOPY: Initial views show an excellent prep and normal mucosa. There was some pool of thick fluid higher up, but views were satisfactory. The sigmoid and descending were normal. No diverticula were seen. The cecum was reached with ease. The cecum, ileocecal valve, and the right colon directly was normal. No blood was seen. There were no AVMs. Coming back slowly, excellent views were obtained and no abnormalities noted. Final views in the rectum including retroflexion were normal. IMPRESSION: 1. Small sliding hiatal hernia. 2. Otherwise, normal upper endoscopy. 3. Normal colonoscopy. 4. Iron deficiency anemia - close followup of stool Hemoccults as warfarin is cautiously reintroduced to be considered. It is noted that his hemoglobin was 10.1 in November 2015 and the next value 6.9 in March 2019. His creatinines tend to run in the mid 1s, 1.4 to 1.54, with erythropoietin values quite high in 2013 and 2016 at 634 and 25, respectively. Steady IV iron replacement can be balanced against his response and sequential stool Hemoccults. Stool Hemoccult was negative on admission 03/06/19 and then positive on 03/09/19. In the inpatient setting, it is unclear what that means regarding long-term workup strategy. [id number]/[facility] #: [id number] [facility]
[2019-03-13] MEDS: ZOSYN 3.375 GM Q8H per EXTENDED INFUSION IVPB SCH ×4 (02:27→10:02)
[2019-03-13 08:12] LABS: ABS Basophils 0.1 10^3/ul (0-0.2); ABS Eosinophils 0.1 10^3/ul (0-0.6); ABS Lymphocytes 0.7 10^3/ul (1.0-4.8); ABS Monocytes 0.6 10^3/ul (0-0.8); ABS Neutrophils 4.6 10^3/ul (1.5-7.7); Hematocrit 27 % (42-52); Hemoglobin 8.5 g/dL (14.0-18.0); Lymphocyte % 12.3 %; Mean Corpuscular HGB Conc 32 g/dL (31-36); Mean Corpuscular Hemoglobin 24 pg (27-31); Mean Corpuscular Volume 76 fL (80-94); Mean Platelet Volume 8.1 fL (7.4-10.4); Platelet Count 203 10^3/uL (150-450); Red Blood Count 3.53 10^6 /uL (4.18-5.48); Red Cell Distribution Width 20 % (10-15); White Blood Count 6.1 10^3/uL (3.5-10.8)
[2019-03-13] MEDS: Dronedarone TAB* 400 MG PO SCH ×2 (08:31→17:08)
[2019-03-13] MEDS: Ascorbic Acid TAB* 500 MG PO SCH (08:31)
[2019-03-13] MEDS: Magnesium Hydroxide LIQ* 30 ML UDC PO SCH ×2 (08:31→20:22)
[2019-03-13] MEDS: Sertraline* 50 MG TAB PO SCH (08:32)
[2019-03-13] MEDS: Pantoprazole TAB * 40 MG TAB PO SCH (08:32)
[2019-03-13] MEDS: Thiamine TAB* 100 MG TAB PO SCH (08:32)
[2019-03-13] MEDS: Magnesium Oxide TAB* 400 MG PO SCH ×2 (08:32→20:19)
[2019-03-13] MEDS: Multivitamins/Minerals TAB PO SCH (08:33)
[2019-03-13] MEDS: Ferrous Sulfate TAB* 325 MG PO SCH (08:33)
[2019-03-13] MEDS: Folic Acid TAB* 1 MG PO SCH (08:33)
[2019-03-13] MEDS: Docusate CAP* 100 MG PO SCH ×2 (08:34→20:19)
[2019-03-13 08:59] LABS: Calcium 9.2 mg/dL (8.6-10.3); Potassium 3.7 mmol/L (3.5-5.0)
[2019-03-13 09:04] LABS: BUN/Creatinine Ratio 10.3 (8-20); EGFR African American 57.8 (>60); EGFR Non-African American 47.7 (>60)
--- NOTE | 2019-03-13 10:48 | PN ---
Subjective - Subjective Reason for Note: Progress Note History: He tolerated the EGD and colonoscopy yesterday. Today he is feeling well. 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 Diabetic retinopathy (Chronic) E11.319 Essential hypertension (Chronic) I10 History of SBE (subacute bacterial endocarditis) (Chronic) Z86.79 Hyperlipidemia (Chronic) E78.5 Mitral valve replacement xenograft (Chronic) Peripheral vascular disease (Chronic) I73.9 Current Medications: Current Medications Acetaminophen (Tylenol Tab*) 650 mg PO Q4H PRN PRN Reason: FEVER/PAIN Last Admin: 03/12/19 04:54 Dose: 650 mg Ascorbic Acid (Vitamin C Tab*) 250 mg PO EVERY OTHER DAY [facility] Last Admin: 03/13/19 08:31 Dose: 250 mg Atorvastatin Calcium (Lipitor*) 20 mg PO QPM [facility] Last Admin: 03/12/19 20:19 Dose: 20 mg Docusate Sodium (Colace Cap*) 100 mg PO BID [facility] Last Admin: 03/13/19 08:34 Dose: Not Given Dronedarone (Multaq Tab*) 400 mg PO BID WITH MEALS [facility] Last Admin: 03/13/19 08:31 Dose: 400 mg Ferrous Sulfate (Ferrous Sulfate Tab*) 325 mg PO EVERY OTHER DAY [facility] Last Admin: 03/13/19 08:33 Dose: 325 mg Folic Acid (Folvite Tab*) 1 mg PO DAILY [facility] Last Admin: 03/13/19 08:33 Dose: 1 mg Piperacillin Sod/Tazobactam (Sod 3.375 gm/ Sodium Chloride) 100 mls @ 25 mls/ hr IVPB Q8H [facility] Last Admin: 03/13/19 10:02 Dose: 25 mls/hr Potassium Chloride/Dextrose (D5w 1/2 Ns Kcl 20 Meq 1000 Ml*) 1,000 mls @ 75 mls /hr IV PER RATE [facility] Last Admin: 03/11/19 01:15 Dose: 75 mls/hr Lisinopril (Prinivil Tab*) 10 mg PO QPM [facility] Last Admin: 03/12/19 20:18 Dose: 10 mg Lorazepam (Ativan Tab(*)) 0 - 6 mg PO .[facility] PROTOCOL [facility]; Protocol Magnesium Hydroxide (Milk Of Magnesia Liq*) 30 ml PO BID [facility] Last Admin: 03/13/19 08:31 Dose: Not Given Magnesium Hydroxide (Milk Of Magnesia Liq*) 30 ml PO BID PRN PRN Reason: CONSITPATION Magnesium Oxide (Magox 400 Tab*) 400 mg PO BID [facility] Last Admin: 03/13/19 08:32 Dose: 400 mg Multivitamins/Minerals (Theragran/Minerals Tab*) 1 tab PO DAILY [facility] Last Admin: 03/13/19 08:33 Dose: 1 tab Pantoprazole Sodium (Protonix Tab*) 40 mg PO QAM [facility] Last Admin: 03/13/19 08:32 Dose: 40 mg Pharmacy Consult (Zosyn Per Pharmacy*) 1 note FOLLOW UP .ZOSYN PER PHARMACY [facility] Sertraline HCl (Zoloft*) 150 mg PO QAM [facility] Last Admin: 03/13/19 08:32 Dose: 150 mg Tamsulosin HCl (Flomax Cap*) 0.4 mg PO QPM [facility] Last Admin: 03/12/19 20:19 Dose: 0.4 mg Thiamine HCl (Vitamin B-1 Tab*) 100 mg PO DAILY [facility] Last Admin: 03/13/19 08:32 Dose: 100 mg Home Medications: Home Medications Medication Instructions Recorded Confirmed Type Lisinopril 10 mg PO QPM 04/09/13 03/06/19 History Pantoprazole TAB * [Protonix TAB 40 mg PO QAM 04/09/13 03/06/19 History (NF)] Sertraline HCl 150 mg PO QAM 04/09/13 03/06/19 History Atorvastatin* [Lipitor 40 MG*] 20 mg PO QPM 07/21/13 03/06/19 History Ascorbic Acid TAB* [Vitamin C 500 mg PO QPM 01/22/14 03/06/19 History TAB*] Ferrous Sulfate [Iron] 65 mg PO QPM 08/03/14 03/06/19 History Magnesium Oxide [Magnesium Oxide-] 400 mg PO BID 08/03/14 03/06/19 History Tamsulosin CAP* [Flomax CAP*] 0.4 mg PO QPM 08/03/14 03/06/19 History Warfarin Sodium 5 mg PO SUTUWEFR 08/03/14 03/06/19 History Allergies: Allergies Allergy/AdvReac Type Severity Reaction Status Date / Time peanut Allergy Severe Anaphylatic Verified 03/06/19 16:19 Shock rivaroxaban [From Xarelto] Allergy Severe Anaphylatic Verified 03/06/19 16:19 Shock ciprofloxacin Allergy Intermediate Edema Verified 03/06/19 16:19 terazosin Allergy Intermediate Rash Verified 03/06/19 16:19 Iodinated Contrast- Oral and Allergy Unknown Unknown Verified 03/06/19 16:19 IV Dye Reaction Details ENVIRONMENTAL/SEASONAL Allergy Congestion Uncoded 03/06/19 16:19 Objective - Vital Signs Vital Signs: Vital Signs 03/12/19 03/12/19 03/12/19 12:00 16:00 18:00 Temperature 98.2 F 98.2 F Pulse Rate 71 81 Respiratory 16 20 Rate Blood Pressure 166/51 (mmHg) O2 Sat by Pulse 99 99 97 Oximetry 03/12/19 03/12/19 03/12/19 19:31 20:00 20:27 Temperature 97.9 F 98.1 F Pulse Rate 71 75 Respiratory 16 20 20 Rate Blood Pressure 153/49 155/52 (mmHg) O2 Sat by Pulse 95 98 Oximetry 03/12/19 03/13/19 03/13/19 21:59 00:00 00:09 Temperature 98.5 F 97.9 F Pulse Rate 70 71 Respiratory 20 20 Rate Blood Pressure 149/47 152/52 (mmHg) O2 Sat by Pulse 97 96 96 Oximetry 03/13/19 03/13/19 03:19 08:00 Temperature 98.3 F 98.2 F Pulse Rate 67 68 Respiratory 18 18 Rate Blood Pressure 147/52 163/54 (mmHg) O2 Sat by Pulse 97 96 Oximetry - Intake and Output Intake and Output: Intake & Output 03/10/19 03/11/19 03/12/19 03/13/19 11:59 11:59 11:59 11:59 Intake Total 1343 1830 1350 2177 Output Total 100 250 Balance 1243 1830 1350 1927 Intake: IV Fluids 169 452 750 ABX - ZOSYN 100 D5W 1/2 NS 20 meq KCL 412 LR 650 NS (0.9%) 169 40 IVPB 451 308 120 517 ABX - VANCOMYCIN 250 ABX - ZOSYN 201 300 100 200 D5W 1/2 NS 20 meq KCL 317 NS (0.9%) 8 20 Oral 420 2049 649 5919 Packed Cells 303 Output: Urine 100 250 Other: Estimated Void Large Medium Date of Last Bowel 03/13/19 Movement # Bowel Movements 0 2 1 Estimated Stool Amount Large Small # Voids 1 2 1 3 ADLs: Meal Record Start: 03/06/19 19: 20 Freq: DAILY@0900,1400,1800 Status: Active Protocol: Created 03/06/19 19:20 System (Rec: 03/06/19 19:20 System MED-M19) Document 03/07/19 09:00 [id number] (Rec: 03/07/19 16:07 [id number] MED-C09) Document 03/07/19 14:00 [id number] (Rec: 03/07/19 16:09 [id number] MED-C09) Document 03/07/19 18:00 [id number] (Rec: 03/07/19 20:57 [id number] MED-C07) Document 03/08/19 09:00 [id number] (Rec: 03/08/19 09:03 [id number] MED-C11) Document 03/08/19 13:15 [id number] (Rec: 03/08/19 13:15 [id number] MED-C11) Document 03/08/19 18:00 [id number] (Rec: 03/08/19 18:35 [id number] MED-C09) Document 03/09/19 09:00 [id number] (Rec: 03/09/19 09:36 [id number] MED-C11) Document 03/09/19 14:00 [id number] (Rec: 03/09/19 14:40 [id number] MED-C11) Document 03/09/19 18:00 [id number] (Rec: 03/09/19 18:23 [id number] MED-C14) Document 03/10/19 09:00 [id number] (Rec: 03/10/19 09:34 [id number] MED-C11) Document 03/10/19 13:49 [id number] (Rec: 03/10/19 13:50 [id number] MED-C11) Document 03/10/19 18:00 [id number] (Rec: 03/10/19 18:40 [id number] MED-C09) Document 03/11/19 09:00 [id number] (Rec: 03/11/19 09:40 [id number] MED-C14) Document 03/11/19 12:57 [id number] (Rec: 03/11/19 12:57 [id number] MED-C09) Document 03/11/19 18:00 [id number] (Rec: 03/11/19 18:11 [id number] MED-C11) Document 03/12/19 09:00 [id number] (Rec: 03/12/19 10:27 IPU2086 MED-C05) Document 03/12/19 13:26 [id number] (Rec: 03/12/19 13:26 [id number] MED-C09) Document 03/12/19 18:00 [id number] (Rec: 03/12/19 19:11 [id number] MED-C11) Intake and Output Start: 03/06/19 16: 11 Freq: Status: Active Protocol: Created 03/06/19 16:11 System (Rec: 03/06/19 16:11 System ED-C24) Document 03/09/19 17:51 [id number] (Rec: 03/09/19 17:52 [id number] MED-C07) Intake and Output Start: 03/06/19 19: 20 Freq: DAILY@0600,1400,2200 Status: Active Protocol: Created 03/06/19 19:20 System (Rec: 03/06/19 19:20 System MED-M19) Document 03/07/19 05:59 [id number] (Rec: 03/07/19 06:01 [id number] MED-C09) Document 03/07/19 14:00 [id number] (Rec: 03/07/19 16:09 [id number] MED-C09) Document 03/07/19 22:00 [id number] (Rec: 03/07/19 22:34 [id number] MED-C07) Document 03/08/19 05:51 [id number] (Rec: 03/08/19 05:52 [id number] MED-C09) Document 03/08/19 07:27 [id number] (Rec: 03/08/19 07:27 [id number] MED-M22) Document 03/08/19 13:15 [id number] (Rec: 03/08/19 13:15 [id number] MED-C11) Document 03/08/19 20:37 [id number] (Rec: 03/08/19 20:39 [id number] MED-C07) Document 03/09/19 05:38 [id number] (Rec: 03/09/19 05:38 [id number] MED-C07) Document 03/09/19 12:42 [id number] (Rec: 03/09/19 12:42 [id number] MED-C11) Document 03/09/19 21:54 [id number] (Rec: 03/09/19 21:56 [id number] MED-C07) Document 03/10/19 06:00 [id number] (Rec: 03/10/19 06:55 [id number] MED-M25) Document 03/10/19 13:49 [id number] (Rec: 03/10/19 13:50 [id number] MED-C11) Document 03/10/19 22:00 [id number] (Rec: 03/10/19 22:14 [id number] MED-C15) Document 03/11/19 06:00 [id number] (Rec: 03/11/19 06:11 [id number] MED-C16) Document 03/11/19 22:00 [id number] (Rec: 03/11/19 23:26 [id number] MED-C04) Document 03/12/19 05:41 [id number] (Rec: 03/12/19 05:42 [id number] MED-C04) Document 03/12/19 14:00 [id number] (Rec: 03/12/19 15:07 [id number] MED-C07) Document 03/12/19 20:44 [id number] (Rec: 03/12/19 20:46 [id number] MED-C09) Document 03/12/19 22:00 [id number] (Rec: 03/12/19 22:24 [id number] MED-C11) Document 03/13/19 05:08 [id number] (Rec: 03/13/19 05:10 [id number] [facility]-C14) - Physical Exam General: No Cyanosis, Yes Anemia, No Jaundice, No Clubbing Abdominal Exam: Yes: Soft. No: Distention, Abdominal Tenderness, Guarding, Rebound Tenderness Results - Results Lab Results: Laboratory Results - last 24 hr 03/12/19 03/13/19 03/13/19 21:45 07:50 07:51 WBC 6.1 RBC 3.53 L Hgb 8.5 L Hct 27 L MCV 76 L MCH 24 L MCHC 32 RDW 20 H Plt Count 203 MPV 8.1 Neut % (Auto) 74.3 Lymph % (Auto) 12.3 [place] % (Auto) 10.5 Eos % (Auto) 2.0 Baso % (Auto) 0.9 Absolute Neuts (auto) 4.6 Absolute Lymphs (auto) 0.7 L Absolute Monos (auto) 0.6 Absolute Eos (auto) 0.1 Absolute Basos (auto) 0.1 Absolute Nucleated RBC 0.0 Nucleated RBC % 0.0 Sodium 141 Potassium 3.7 Chloride 110 Carbon Dioxide 23 Anion Gap 8 BUN 15 Creatinine 1.46 H Est GFR ( Amer) 57.8 Est GFR (Non-Af Amer) 47.7 BUN/Creatinine Ratio 10.3 Glucose 131 H POC Glucose (mg/dL) 202 H Calcium 9.2 03/13/19 09:52 WBC RBC Hgb Hct MCV MCH MCHC RDW Plt Count MPV Neut % (Auto) Lymph % (Auto) [place] % (Auto) Eos % (Auto) Baso % (Auto) Absolute Neuts (auto) Absolute Lymphs (auto) Absolute Monos (auto) Absolute Eos (auto) Absolute Basos (auto) Absolute Nucleated RBC Nucleated RBC % Sodium Potassium Chloride Carbon Dioxide Anion Gap BUN Creatinine Est GFR ( Amer) Est GFR (Non-Af Amer) BUN/Creatinine Ratio Glucose POC Glucose (mg/dL) 184 H Calcium Assessment - Problem List Assessment: Patient Problems Amputation toe (Acute) Cellulitis of foot, right (Acute) GI hemorrhage (Acute) Iron deficiency anemia (Acute) Osteomyelitis of toe of right foot (Acute) Positive fecal occult blood test (Acute) Alcohol dependence (Chronic) Atrial fibrillation (Chronic) Cerebrovascular disease (Chronic) Depressive disorder (Chronic) Diabetes mellitus type 2 (Chronic) Diabetic foot ulcer (Chronic) Diabetic peripheral neuropathy (Chronic) Diabetic renal disease (Chronic) Diabetic retinopathy (Chronic) Essential hypertension (Chronic) History of SBE (subacute bacterial endocarditis) (Chronic) Hyperlipidemia (Chronic) Mitral valve replacement xenograft (Chronic) Peripheral vascular disease (Chronic) Plan: Amputation toe (Acute)Cellulitis of foot, right (Acute)Osteomyelitis of toe of right foot (Acute) I reviewed Dr. Cox's note - he wants Mr. Golden to have 42 days of treatment with IV ancef 2 grams q8 hours for 42 days. I will start this and stop the other antibacterials. He needs a PICC line placed GI hemorrhage (Acute)Iron deficiency anemia (Acute) Positive fecal occult blood test (Acute) I read Dr. Tyree Bergeron's consultation note. There is no site of hemorrhage. I will start him on parenteral iron per recommendation. I will not restart warfarin for a while to prevent rebleeding comorbidities: Alcohol dependence (Chronic) Atrial fibrillation (Chronic) Cerebrovascular disease (Chronic) Depressive disorder (Chronic) Diabetes mellitus type 2 (Chronic) Diabetic foot ulcer (Chronic) Diabetic peripheral neuropathy (Chronic) Diabetic renal disease (Chronic) Diabetic retinopathy (Chronic) Essential hypertension (Chronic) History of SBE (subacute bacterial endocarditis) (Chronic) Hyperlipidemia (Chronic) Mitral valve replacement xenograft (Chronic) Peripheral vascular disease (Chronic I spoke to Henrique and Cathie Golden about the above. He will need continued hospital stay until the PICC line is placed.
[2019-03-13] MEDS ORDERED: NS 0.9% 100 ML* 100 ML ONE (11:15)
--- NOTE | 2019-03-13 11:40 | PN ---
Progress Note - Progress Note Date of Service: 03/13/19 SOAP: Subjective: [Pt seen lying in bed today. There is minimal pain along the Achilles he states. No numbness or tingling. No chest pain or SOB. ] Objective: Right foot splint and exposed dressings intact and dry remaining toes without erythema Vital Signs Temp 98.2 F 03/13/19 08:00 Pulse 68 03/13/19 08:00 Resp 18 03/13/19 08:00 BP 163/54 03/13/19 08:00 Pulse Ox 96 03/13/19 08:00 Intake & Output 03/12/19 03/13/19 03/13/19 18:59 06:59 18:59 Intake Total 1487 690 240 Output Total 250 Balance 1487 440 240 Intake: IVPB 517 ABX - ZOSYN 200 D5W 1/2 NS 20 meq KCL 317 Oral 970 690 240 Output: Urine 250 Other: Estimated Void Medium Date of Last Bowel 03/13/19 Movement # Bowel Movements 4 1 Estimated Stool Amount Medium Small # Voids 3 Assessment: []s/p right foot I&D, 2nd toe amputation, metatarsal head resection and right gastroc recession POD #2 Plan: []Per Dr. Cox: operative cultures pending, if no other organisms isolated can change antibiotics to ancef 2 gm IV Q8hrs, day for possibility of retained infection in metatarsal. NWB RLE Follow up with Dr. Rollins ~10 days after discharge Awaiting PICC line for IV abx, possible placement on friday
[2019-03-13] MEDS: Iron Sucrose* 200 MG in NS 0.9% 100 ML* 100 ML IVPB SCH (11:45)
[2019-03-13] MEDS: ceFAZolin 2 GM in NS PREMIX(*) 2 GM/100 ML BAG IVPB SCH ×2 (12:20→20:19)
[2019-03-13] MEDS: D5W 1/2 NS KCl 20 Meq 1000 ML* 1,000 ML IV SCH (15:18)
[2019-03-13] MEDS: Lisinopril TAB* 10 MG PO SCH (17:08)
[2019-03-13] MEDS: Tamsulosin CAP* 0.4 MG PO SCH (17:08)
[2019-03-13] MEDS: Atorvastatin* 20 MG TAB PO SCH (17:08)
[2019-03-14] MEDS: ceFAZolin 2 GM in NS PREMIX(*) 2 GM/100 ML BAG IVPB SCH ×3 (04:01→21:14)
[2019-03-14 06:20] LABS: Hematocrit 26 % (42-52); Hemoglobin 8.2 g/dL (14.0-18.0)
[2019-03-14] MEDS: Iron Sucrose* 200 MG in NS 0.9% 100 ML* 100 ML IVPB SCH (08:51)
[2019-03-14] MEDS: Sertraline* 50 MG TAB PO SCH (08:52)
[2019-03-14] MEDS: Folic Acid TAB* 1 MG PO SCH (08:52)
[2019-03-14] MEDS: Magnesium Oxide TAB* 400 MG PO SCH ×2 (08:52→21:15)
[2019-03-14] MEDS: Docusate CAP* 100 MG PO SCH ×2 (08:53→21:23)
[2019-03-14] MEDS: Thiamine TAB* 100 MG TAB PO SCH (08:53)
[2019-03-14] MEDS: Pantoprazole TAB * 40 MG TAB PO SCH (08:53)
[2019-03-14] MEDS: Dronedarone TAB* 400 MG PO SCH ×2 (08:53→17:46)
[2019-03-14] MEDS: Multivitamins/Minerals TAB PO SCH (08:53)
[2019-03-14] MEDS: Magnesium Hydroxide LIQ* 30 ML UDC PO SCH ×2 (08:54→21:23)
[2019-03-14] MEDS ORDERED: Iron Sucrose* 20 MG/ML 5 ML VIAL IV PUSH SCH (09:00)
--- NOTE | 2019-03-14 10:09 | PN ---
Progress Note - Progress Note Date of Service: 03/14/19 SOAP: Subjective: [Pt seen sitting in bed today. There is minimal pain along the Achilles he states. No numbness or tingling. No chest pain or SOB. ] Objective: Right foot splint and exposed dressings intact and dry remaining toes without erythema Vital Signs Temp 98 F 03/14/19 07:16 Pulse 68 03/14/19 07:16 Resp 18 03/14/19 09:04 BP 153/49 03/14/19 07:16 Pulse Ox 97 03/14/19 09:04 Intake & Output 03/13/19 03/14/19 03/14/19 18:59 06:59 18:59 Intake Total 1290 260 240 Output Total 400 395 Balance 890 -135 240 Intake: IV Fluids 60 NS (0.9%) 60 IVPB 210 200 ABX - CEFAZOLIN 200 ABX - ZOSYN 110 iron sucrose 100 Oral 1080 0 240 Output: Urine 400 395 Other: Estimated Void Medium Small # Bowel Movements 1 2 Estimated Stool Amount Small Medium # Voids 4 1 Assessment: []s/p right foot I&D, 2nd toe amputation, metatarsal head resection and right gastroc recession POD #3 Plan: []Per Dr. Cox: operative cultures pending, if no other organisms isolated can change antibiotics to ancef 2 gm IV Q8hrs, day for possibility of retained infection in metatarsal. NWB RLE Follow up with Dr. Rollins ~10 days after discharge Awaiting PICC line for IV abx, possible placement on friday
--- NOTE | 2019-03-14 10:59 | PN ---
Subjective - Subjective Reason for Note: Progress Note History: He is feeling well and tolerating the antibacterials. He has no need for analgesics for his foot. Diabetes is well controlled. He has no symptoms of further GI hemorrhage. 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 Diabetic retinopathy (Chronic) E11.319 Essential hypertension (Chronic) I10 History of SBE (subacute bacterial endocarditis) (Chronic) Z86.79 Hyperlipidemia (Chronic) E78.5 Mitral valve replacement xenograft (Chronic) Peripheral vascular disease (Chronic) I73.9 Current Medications: Current Medications Acetaminophen (Tylenol Tab*) 650 mg PO Q4H PRN PRN Reason: FEVER/PAIN Last Admin: 03/12/19 04:54 Dose: 650 mg Ascorbic Acid (Vitamin C Tab*) 250 mg PO EVERY OTHER DAY [facility] Last Admin: 03/13/19 08:31 Dose: 250 mg Atorvastatin Calcium (Lipitor*) 20 mg PO QPM [facility] Last Admin: 03/13/19 17:08 Dose: 20 mg Docusate Sodium (Colace Cap*) 100 mg PO BID [facility] Last Admin: 03/14/19 08:53 Dose: 100 mg Dronedarone (Multaq Tab*) 400 mg PO BID WITH MEALS [facility] Last Admin: 03/14/19 08:53 Dose: 400 mg Ferrous Sulfate (Ferrous Sulfate Tab*) 325 mg PO EVERY OTHER DAY [facility] Last Admin: 03/13/19 08:33 Dose: 325 mg Folic Acid (Folvite Tab*) 1 mg PO DAILY [facility] Last Admin: 03/14/19 08:52 Dose: 1 mg Cefazolin Sodium (Kefzol 2 Gm In Ns Premix(*)) 2 gm in 100 mls @ 200 mls/hr IVPB Q8H [facility] Last Admin: 03/14/19 04:01 Dose: 200 mls/hr Iron Sucrose 200 mg/ Sodium (Chloride) 110 mls @ 110 mls/hr IVPB DAILY [facility] Stop: 03/17/19 09:59 Last Admin: 03/14/19 08:51 Dose: 110 mls/hr Lisinopril (Prinivil Tab*) 10 mg PO QPM [facility] Last Admin: 03/13/19 17:08 Dose: 10 mg Magnesium Hydroxide (Milk Of Magnesia Liq*) 30 ml PO BID [facility] Last Admin: 03/14/19 08:54 Dose: Not Given Magnesium Hydroxide (Milk Of Magnesia Liq*) 30 ml PO BID PRN PRN Reason: CONSITPATION Magnesium Oxide (Magox 400 Tab*) 400 mg PO BID [facility] Last Admin: 03/14/19 08:52 Dose: 400 mg Multivitamins/Minerals (Theragran/Minerals Tab*) 1 tab PO DAILY [facility] Last Admin: 03/14/19 08:53 Dose: 1 tab Pantoprazole Sodium (Protonix Tab*) 40 mg PO QAM [facility] Last Admin: 03/14/19 08:53 Dose: 40 mg Sertraline HCl (Zoloft*) 150 mg PO QAM [facility] Last Admin: 03/14/19 08:52 Dose: 150 mg Tamsulosin HCl (Flomax Cap*) 0.4 mg PO QPM [facility] Last Admin: 03/13/19 17:08 Dose: 0.4 mg Thiamine HCl (Vitamin B-1 Tab*) 100 mg PO DAILY [facility] Last Admin: 03/14/19 08:53 Dose: 100 mg Home Medications: Home Medications Medication Instructions Recorded Confirmed Type Lisinopril 10 mg PO QPM 04/09/13 03/06/19 History Pantoprazole TAB * [Protonix TAB 40 mg PO QAM 04/09/13 03/06/19 History (NF)] Sertraline HCl 150 mg PO QAM 04/09/13 03/06/19 History Atorvastatin* [Lipitor 40 MG*] 20 mg PO QPM 07/21/13 03/06/19 History Ascorbic Acid TAB* [Vitamin C 500 mg PO QPM 01/22/14 03/06/19 History TAB*] Ferrous Sulfate [Iron] 65 mg PO QPM 08/03/14 03/06/19 History Magnesium Oxide [Magnesium Oxide-] 400 mg PO BID 08/03/14 03/06/19 History Tamsulosin CAP* [Flomax CAP*] 0.4 mg PO QPM 08/03/14 03/06/19 History Warfarin Sodium 5 mg PO SUTUWEFR 08/03/14 03/06/19 History Allergies: Allergies Allergy/AdvReac Type Severity Reaction Status Date / Time peanut Allergy Severe Anaphylatic Verified 03/06/19 16:19 Shock rivaroxaban [From Xarelto] Allergy Severe Anaphylatic Verified 03/06/19 16:19 Shock ciprofloxacin Allergy Intermediate Edema Verified 03/06/19 16:19 terazosin Allergy Intermediate Rash Verified 03/06/19 16:19 Iodinated Contrast- Oral and Allergy Unknown Unknown Verified 03/06/19 16:19 IV Dye Reaction Details ENVIRONMENTAL/SEASONAL Allergy Congestion Uncoded 03/06/19 16:19 Objective - Vital Signs Vital Signs: Vital Signs 03/13/19 03/13/19 03/13/19 12:00 16:00 19:10 Temperature 97.9 F 97.6 F 98.4 F Pulse Rate 66 72 68 Respiratory 18 18 20 Rate Blood Pressure 150/47 174/49 159/51 (mmHg) O2 Sat by Pulse 98 98 97 Oximetry 03/13/19 03/13/19 03/13/19 20:00 22:55 23:18 Temperature 97.2 F Pulse Rate 66 Respiratory 20 16 Rate Blood Pressure 142/48 (mmHg) O2 Sat by Pulse 96 96 Oximetry 03/14/19 03/14/19 03/14/19 02:57 07:16 09:04 Temperature 97.8 F 98 F Pulse Rate 63 68 Respiratory 22 16 18 Rate Blood Pressure 150/42 153/49 (mmHg) O2 Sat by Pulse 96 97 97 Oximetry - Intake and Output Intake and Output: Intake & Output 03/11/19 03/12/19 03/13/19 03/14/19 11:59 11:59 11:59 11:59 Intake Total 1830 1350 2417 1550 Output Total 250 795 Balance 1830 1350 2167 755 Intake: IV Fluids 452 750 60 ABX - ZOSYN 100 D5W 1/2 NS 20 meq KCL 412 LR 650 NS (0.9%) 40 60 IVPB 308 120 517 410 ABX - CEFAZOLIN 200 ABX - ZOSYN 300 100 200 110 D5W 1/2 NS 20 meq KCL 317 NS (0.9%) 8 20 iron sucrose 100 Oral 3090 867 5481 1080 Output: Urine 250 795 Other: Estimated Void Medium Small Date of Last Bowel 03/13/19 Movement # Bowel Movements 2 1 2 Estimated Stool Amount Small Medium # Voids 2 1 3 1 ADLs: Meal Record Start: 03/06/19 19: 20 Freq: DAILY@0900,1400,1800 Status: Active Protocol: Created 03/06/19 19:20 System (Rec: 03/06/19 19:20 System MED-M19) Document 03/07/19 09:00 [id number] (Rec: 03/07/19 16:07 [id number] MED-C09) Document 03/07/19 14:00 WCO0568 (Rec: 03/07/19 16:09 CBR9601 MED-C09) Document 03/07/19 18:00 VBJ4103 (Rec: 03/07/19 20:57 FPI5600 MED-C07) Document 03/08/19 09:00 TCS1308 (Rec: 03/08/19 09:03 DWX1127 MED-C11) Document 03/08/19 13:15 WJH8239 (Rec: 03/08/19 13:15 LUL1693 MED-C11) Document 03/08/19 18:00 LXC7183 (Rec: 03/08/19 18:35 UZA4856 MED-C09) Document 03/09/19 09:00 FBA0144 (Rec: 03/09/19 09:36 WCS4600 MED-C11) Document 03/09/19 14:00 IRQ7532 (Rec: 03/09/19 14:40 ACB2827 MED-C11) Document 03/09/19 18:00 JIR3144 (Rec: 03/09/19 18:23 GEH1470 MED-C14) Document 03/10/19 09:00 LEX7026 (Rec: 03/10/19 09:34 UPJ8617 MED-C11) Document 03/10/19 13:49 KHB0087 (Rec: 03/10/19 13:50 QOR4330 MED-C11) Document 03/10/19 18:00 JQI3652 (Rec: 03/10/19 18:40 JII3864 MED-C09) Document 03/11/19 09:00 HDI7040 (Rec: 03/11/19 09:40 JVR1629 MED-C14) Document 03/11/19 12:57 CPN7274 (Rec: 03/11/19 12:57 YXJ8372 MED-C09) Document 03/11/19 18:00 KBL9747 (Rec: 03/11/19 18:11 ZUE3142 MED-C11) Document 03/12/19 09:00 NOP6314 (Rec: 03/12/19 10:27 VJP0687 MED-C05) Document 03/12/19 13:26 QZK5937 (Rec: 03/12/19 13:26 IZV6963 MED-C09) Document 03/12/19 18:00 WVN0442 (Rec: 03/12/19 19:11 MIJ5995 MED-C11) Document 03/13/19 09:00 UXW4612 (Rec: 03/13/19 10:41 MTC5030 MED-C11) Document 03/13/19 14:00 RWQ3252 (Rec: 03/13/19 17:05 DEB2578 MED-C11) Document 03/13/19 18:00 FFH9828 (Rec: 03/13/19 18:31 ETX4435 MED-C11) Document 03/14/19 08:43 ECF4867 (Rec: 03/14/19 08:43 EVI3556 MED-C11) Intake and Output Start: 03/06/19 16: 11 Freq: Status: Active Protocol: Created 03/06/19 16:11 System (Rec: 03/06/19 16:11 System ED-C24) Document 03/09/19 17:51 HQC5910 (Rec: 03/09/19 17:52 QUW5190 MED-C07) Intake and Output Start: 03/06/19 19: 20 Freq: DAILY@0600,1400,2200 Status: Active Protocol: Created 03/06/19 19:20 System (Rec: 03/06/19 19:20 System MED-M19) Document 03/07/19 05:59 QJA3634 (Rec: 03/07/19 06:01 GDQ4742 MED-C09) Document 03/07/19 14:00 VEH3229 (Rec: 03/07/19 16:09 KGV4318 MED-C09) Document 03/07/19 22:00 MJZ8800 (Rec: 03/07/19 22:34 BTA9963 MED-C07) Document 03/08/19 05:51 NYO9020 (Rec: 03/08/19 05:52 JMQ0301 MED-C09) Document 03/08/19 07:27 YEM2189 (Rec: 03/08/19 07:27 CWA4154 MED-M22) Document 03/08/19 13:15 BZK8073 (Rec: 03/08/19 13:15 NTE7205 MED-C11) Document 03/08/19 20:37 YJV8878 (Rec: 03/08/19 20:39 IVK9521 MED-C07) Document 03/09/19 05:38 EAL4602 (Rec: 03/09/19 05:38 DDJ3945 MED-C07) Document 03/09/19 12:42 NXW2187 (Rec: 03/09/19 12:42 LFH6684 MED-C11) Document 03/09/19 21:54 IRZ1782 (Rec: 03/09/19 21:56 FCP6659 MED-C07) Document 03/10/19 06:00 ZTD9793 (Rec: 03/10/19 06:55 XXX3180 MED-M25) Document 03/10/19 13:49 QZN6419 (Rec: 03/10/19 13:50 IRC5164 MED-C11) Document 03/10/19 22:00 KQV9646 (Rec: 03/10/19 22:14 JMN4511 MED-C15) Document 03/11/19 06:00 DUQ9368 (Rec: 03/11/19 06:11 JFP3555 MED-C16) Document 03/11/19 22:00 PCN8633 (Rec: 03/11/19 23:26 TLF7786 MED-C04) Document 03/12/19 05:41 EWV4709 (Rec: 03/12/19 05:42 AUM4919 MED-C04) Document 03/12/19 14:00 SKR4812 (Rec: 03/12/19 15:07 CDP0126 MED-C07) Document 03/12/19 20:44 PSB5294 (Rec: 03/12/19 20:46 HTM2680 MED-C09) Document 03/12/19 22:00 QZI4820 (Rec: 03/12/19 22:24 MOS3771 MED-C11) Document 03/13/19 05:08 DFQ8596 (Rec: 03/13/19 05:10 UTO8813 MED-C14) Document 03/13/19 14:00 YAB3038 (Rec: 03/13/19 17:05 IQF9263 MED-C11) Document 03/13/19 21:28 FOQ4558 (Rec: 03/13/19 21:32 HFL7822 MED-C04) Document 03/14/19 05:24 JYW4548 (Rec: 03/14/19 05:25 NRK5156 MED-C04) - Physical Exam General: No Cyanosis, No Anemia, No Jaundice, No Clubbing Lungs and Chest: Yes: Chest Expansion Full, Chest Expansion Symetrica, Percussion Note Resonant, Vessicular Breath Sounds. No: Crackles, Wheezes Heart Rate and Rhythm: Regular Additional Cardiovascular: Yes: Normal Heart Sounds. No: Heart Murmur, Pedal Edema Abdominal Exam: Yes: Soft, Bowel Sounds Present. No: Distention, Abdominal Tenderness Results - Results Lab Results: Laboratory Results - last 24 hr 03/13/19 03/14/19 03/14/19 20:51 05:44 08:59 Hgb 8.2 L Hct 26 L POC Glucose (mg/dL) 196 H 167 H Assessment - Problem List Assessment: Patient Problems Amputation toe (Acute) Cellulitis of foot, right (Acute) GI hemorrhage (Acute) Iron deficiency anemia (Acute) Osteomyelitis of toe of right foot (Acute) Positive fecal occult blood test (Acute) Alcohol dependence (Chronic) Atrial fibrillation (Chronic) Cerebrovascular disease (Chronic) Depressive disorder (Chronic) Diabetes mellitus type 2 (Chronic) Diabetic foot ulcer (Chronic) Diabetic peripheral neuropathy (Chronic) Diabetic renal disease (Chronic) Diabetic retinopathy (Chronic) Essential hypertension (Chronic) History of SBE (subacute bacterial endocarditis) (Chronic) Hyperlipidemia (Chronic) Mitral valve replacement xenograft (Chronic) Peripheral vascular disease (Chronic) Plan: Amputation toe (Acute) Cellulitis of foot, right (Acute) Osteomyelitis of toe of right foot (Acute) He is tolerating the antibacterial treatment - he is no on ancef. We will place a PICC line tomorrow and plan on discharge GI hemorrhage (Acute) Hemoglobin/hematocrit stable Positive fecal occult blood test (Acute) Iron deficiency anemia (Acute) We have started him on parenteral iron - today is 2/5 treatments. We are likely to get 3/5 before discharge - the 2 remaining we will have to consider as an outpatient Atrial fibrillation (Chronic) His pulse is regular. He may still have some clot in his left atrial appendage. Secondary diagnoses: Alcohol dependence (Chronic) Cerebrovascular disease (Chronic) Depressive disorder (Chronic) Diabetes mellitus type 2 (Chronic) Diabetic foot ulcer (Chronic) Diabetic peripheral neuropathy (Chronic) Diabetic renal disease (Chronic) Diabetic retinopathy (Chronic) Essential hypertension (Chronic) History of SBE (subacute bacterial endocarditis) (Chronic) Hyperlipidemia (Chronic) Mitral valve replacement xenograft (Chronic) Peripheral vascular disease (Chronic) I discussed the above with Henrique and Cathie Golden and they agree with the management plan.
[2019-03-14] MEDS: Atorvastatin* 20 MG TAB PO SCH (17:46)
[2019-03-14] MEDS: Tamsulosin CAP* 0.4 MG PO SCH (17:46)
[2019-03-14] MEDS: Lisinopril TAB* 10 MG PO SCH (17:46)
[2019-03-14] MEDS: Acetaminophen TAB* 325 MG PO PRN (21:19)
[2019-03-15] MEDS: ceFAZolin 2 GM in NS PREMIX(*) 2 GM/100 ML BAG IVPB SCH ×3 (04:04→19:36)
[2019-03-15 06:09] LABS: Hematocrit 27 % (42-52); Hemoglobin 8.6 g/dL (14.0-18.0)
--- NOTE | 2019-03-15 08:04 | PN ---
Subjective - Subjective Reason for Note: Discharge Note History: Contingent discharge progress note He is feeling well and has no problems with pain in his right foot. He has loose stool from antibacterials, but no more. He has had no further bleeding from his gut. He is tolerating iron infusions. 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 Diabetic retinopathy (Chronic) E11.319 Essential hypertension (Chronic) I10 History of SBE (subacute bacterial endocarditis) (Chronic) Z86.79 Hyperlipidemia (Chronic) E78.5 Mitral valve replacement xenograft (Chronic) Peripheral vascular disease (Chronic) I73.9 Current Medications: Current Medications Acetaminophen (Tylenol Tab*) 650 mg PO Q4H PRN PRN Reason: FEVER/PAIN Last Admin: 03/14/19 21:19 Dose: 650 mg Ascorbic Acid (Vitamin C Tab*) 250 mg PO EVERY OTHER DAY [facility] Last Admin: 03/13/19 08:31 Dose: 250 mg Atorvastatin Calcium (Lipitor*) 20 mg PO QPM [facility] Last Admin: 03/14/19 17:46 Dose: 20 mg Docusate Sodium (Colace Cap*) 100 mg PO BID [facility] Last Admin: 03/14/19 21:23 Dose: Not Given Dronedarone (Multaq Tab*) 400 mg PO BID WITH MEALS [facility] Last Admin: 03/14/19 17:46 Dose: 400 mg Ferrous Sulfate (Ferrous Sulfate Tab*) 325 mg PO EVERY OTHER DAY [facility] Last Admin: 03/13/19 08:33 Dose: 325 mg Folic Acid (Folvite Tab*) 1 mg PO DAILY [facility] Last Admin: 03/14/19 08:52 Dose: 1 mg Cefazolin Sodium (Kefzol 2 Gm In Ns Premix(*)) 2 gm in 100 mls @ 200 mls/hr IVPB Q8H [facility] Last Admin: 03/15/19 04:04 Dose: 200 mls/hr Iron Sucrose 200 mg/ Sodium (Chloride) 110 mls @ 110 mls/hr IVPB DAILY [facility] Stop: 03/17/19 09:59 Last Admin: 03/14/19 08:51 Dose: 110 mls/hr Lisinopril (Prinivil Tab*) 10 mg PO QPM [facility] Last Admin: 03/14/19 17:46 Dose: 10 mg Magnesium Hydroxide (Milk Of Magnesia Liq*) 30 ml PO BID [facility] Last Admin: 03/14/19 21:23 Dose: Not Given Magnesium Hydroxide (Milk Of Magnesia Liq*) 30 ml PO BID PRN PRN Reason: CONSITPATION Magnesium Oxide (Magox 400 Tab*) 400 mg PO BID [facility] Last Admin: 03/14/19 21:15 Dose: 400 mg Multivitamins/Minerals (Theragran/Minerals Tab*) 1 tab PO DAILY [facility] Last Admin: 03/14/19 08:53 Dose: 1 tab Pantoprazole Sodium (Protonix Tab*) 40 mg PO QAM [facility] Last Admin: 03/14/19 08:53 Dose: 40 mg Sertraline HCl (Zoloft*) 150 mg PO QAM [facility] Last Admin: 03/14/19 08:52 Dose: 150 mg Tamsulosin HCl (Flomax Cap*) 0.4 mg PO QPM [facility] Last Admin: 03/14/19 17:46 Dose: 0.4 mg Thiamine HCl (Vitamin B-1 Tab*) 100 mg PO DAILY [facility] Last Admin: 03/14/19 08:53 Dose: 100 mg Home Medications: Home Medications Medication Instructions Recorded Confirmed Type Lisinopril 10 mg PO QPM 04/09/13 03/06/19 History Pantoprazole TAB * [Protonix TAB 40 mg PO QAM 04/09/13 03/06/19 History (NF)] Sertraline HCl 150 mg PO QAM 04/09/13 03/06/19 History Atorvastatin* [Lipitor 40 MG*] 20 mg PO QPM 07/21/13 03/06/19 History Ascorbic Acid TAB* [Vitamin C 500 mg PO QPM 01/22/14 03/06/19 History TAB*] Ferrous Sulfate [Iron] 65 mg PO QPM 08/03/14 03/06/19 History Magnesium Oxide [Magnesium Oxide-] 400 mg PO BID 08/03/14 03/06/19 History Tamsulosin CAP* [Flomax CAP*] 0.4 mg PO QPM 08/03/14 03/06/19 History Warfarin Sodium 5 mg PO SUTUWEFR 08/03/14 03/06/19 History Allergies: Allergies Allergy/AdvReac Type Severity Reaction Status Date / Time peanut Allergy Severe Anaphylatic Verified 03/06/19 16:19 Shock rivaroxaban [From Xarelto] Allergy Severe Anaphylatic Verified 03/06/19 16:19 Shock ciprofloxacin Allergy Intermediate Edema Verified 03/06/19 16:19 terazosin Allergy Intermediate Rash Verified 03/06/19 16:19 Iodinated Contrast- Oral and Allergy Unknown Unknown Verified 03/06/19 16:19 IV Dye Reaction Details ENVIRONMENTAL/SEASONAL Allergy Congestion Uncoded 03/06/19 16:19 Objective - Vital Signs Vital Signs: Vital Signs 03/14/19 03/14/19 03/14/19 09:04 11:00 15:00 Temperature 97.3 F 97.7 F Pulse Rate 78 73 Respiratory 18 16 16 Rate Blood Pressure 161/53 156/51 (mmHg) O2 Sat by Pulse 97 97 98 Oximetry 03/14/19 03/14/19 03/14/19 17:37 19:00 20:00 Temperature 98.8 F Pulse Rate 72 Respiratory 18 16 Rate Blood Pressure 167/56 (mmHg) O2 Sat by Pulse 98 98 Oximetry 03/14/19 03/15/19 23:00 03:00 Temperature 98.3 F 97.9 F Pulse Rate 64 68 Respiratory 18 20 Rate Blood Pressure 169/52 173/66 (mmHg) O2 Sat by Pulse 96 96 Oximetry - Intake and Output Intake and Output: Intake & Output 03/12/19 03/13/19 03/14/19 03/15/19 11:59 11:59 11:59 11:59 Intake Total 1350 2417 1550 808 Output Total 250 795 325 Balance 1350 2167 755 483 Intake: IV Fluids 750 60 ABX - ZOSYN 100 LR 650 NS (0.9%) 60 IVPB 120 517 410 328 ABX - CEFAZOLIN 200 218 ABX - ZOSYN 100 200 110 D5W 1/2 NS 20 meq KCL 317 NS (0.9%) 20 iron sucrose 100 110 Oral 480 1900 1080 480 Output: Urine 250 795 325 Other: Estimated Void Medium Small Medium Date of Last Bowel 03/13/19 03/14/19 Movement # Bowel Movements 2 1 2 1 Estimated Stool Amount Small Medium Small # Voids 1 3 1 1 ADLs: Meal Record Start: 03/06/19 19: 20 Freq: DAILY@0900,1400,1800 Status: Active Protocol: Created 03/06/19 19:20 System (Rec: 03/06/19 19:20 System MED-M19) Document 03/07/19 09:00 [id number] (Rec: 03/07/19 16:07 [id number] MED-C09) Document 03/07/19 14:00 WDT5509 (Rec: 03/07/19 16:09 ZKP6221 MED-C09) Document 03/07/19 18:00 RUV8607 (Rec: 03/07/19 20:57 XDL2089 MED-C07) Document 03/08/19 09:00 VVU3935 (Rec: 03/08/19 09:03 XIJ4253 MED-C11) Document 03/08/19 13:15 PEJ3477 (Rec: 03/08/19 13:15 YNW6868 MED-C11) Document 03/08/19 18:00 SVQ6983 (Rec: 03/08/19 18:35 FIA4325 MED-C09) Document 03/09/19 09:00 FMQ9813 (Rec: 03/09/19 09:36 GWC9012 MED-C11) Document 03/09/19 14:00 IPO9270 (Rec: 03/09/19 14:40 USC6045 MED-C11) Document 03/09/19 18:00 XOO9180 (Rec: 03/09/19 18:23 STU9770 MED-C14) Document 03/10/19 09:00 KGY4142 (Rec: 03/10/19 09:34 TWO9299 MED-C11) Document 03/10/19 13:49 CJQ8781 (Rec: 03/10/19 13:50 ILX2223 MED-C11) Document 03/10/19 18:00 IFV8944 (Rec: 03/10/19 18:40 EST9218 MED-C09) Document 03/11/19 09:00 SKJ3164 (Rec: 03/11/19 09:40 KDV8616 MED-C14) Document 03/11/19 12:57 WWL3187 (Rec: 03/11/19 12:57 ZVW2290 MED-C09) Document 03/11/19 18:00 DJP6698 (Rec: 03/11/19 18:11 KMS4232 MED-C11) Document 03/12/19 09:00 JHO2537 (Rec: 03/12/19 10:27 EKP1269 MED-C05) Document 03/12/19 13:26 PJY0057 (Rec: 03/12/19 13:26 DDQ2877 MED-C09) Document 03/12/19 18:00 AYG5819 (Rec: 03/12/19 19:11 NMU5978 MED-C11) Document 03/13/19 09:00 EHP6866 (Rec: 03/13/19 10:41 YCV2483 MED-C11) Document 03/13/19 14:00 HJS4033 (Rec: 03/13/19 17:05 HOS7289 MED-C11) Document 03/13/19 18:00 NQT3871 (Rec: 03/13/19 18:31 JOF9991 MED-C11) Document 03/14/19 08:43 VGH7211 (Rec: 03/14/19 08:43 QVP6697 MED-C11) Document 03/14/19 12:47 RRO7738 (Rec: 03/14/19 12:47 GBX9077 MED-C11) Document 03/14/19 18:00 GTC8014 (Rec: 03/14/19 18:34 FNA4112 MED-C07) Intake and Output Start: 03/06/19 16: 11 Freq: Status: Active Protocol: Created 03/06/19 16:11 System (Rec: 03/06/19 16:11 System ED-C24) Document 03/09/19 17:51 OPC1585 (Rec: 03/09/19 17:52 CCO8529 MED-C07) Intake and Output Start: 03/06/19 19: 20 Freq: DAILY@0600,1400,2200 Status: Active Protocol: Created 03/06/19 19:20 System (Rec: 03/06/19 19:20 System MED-M19) Document 03/07/19 05:59 [id number] (Rec: 03/07/19 06:01 TWV5698 MED-C09) Document 03/07/19 14:00 UMT6268 (Rec: 03/07/19 16:09 GOX5223 MED-C09) Document 03/07/19 22:00 ITY9790 (Rec: 03/07/19 22:34 WHL1996 MED-C07) Document 03/08/19 05:51 EOD3626 (Rec: 03/08/19 05:52 NEB5864 MED-C09) Document 03/08/19 07:27 EIC4670 (Rec: 03/08/19 07:27 GBC0664 MED-M22) Document 03/08/19 13:15 EFV9230 (Rec: 03/08/19 13:15 GYW3355 MED-C11) Document 03/08/19 20:37 RXW5613 (Rec: 03/08/19 20:39 MOU5058 MED-C07) Document 03/09/19 05:38 [id number] (Rec: 03/09/19 05:38 VUF9602 MED-C07) Document 03/09/19 12:42 SDX8247 (Rec: 03/09/19 12:42 UEJ6728 MED-C11) Document 03/09/19 21:54 WJW7428 (Rec: 03/09/19 21:56 WLB2066 MED-C07) Document 03/10/19 06:00 DFK3155 (Rec: 03/10/19 06:55 UOA0092 MED-M25) Document 03/10/19 13:49 DNB3708 (Rec: 03/10/19 13:50 FPW6340 MED-C11) Document 03/10/19 22:00 DPV6202 (Rec: 03/10/19 22:14 KWY4813 MED-C15) Document 03/11/19 06:00 FUO9222 (Rec: 03/11/19 06:11 UCG1987 MED-C16) Document 03/11/19 22:00 IFM9823 (Rec: 03/11/19 23:26 RSR6880 MED-C04) Document 03/12/19 05:41 DSP5059 (Rec: 03/12/19 05:42 DYB1294 MED-C04) Document 03/12/19 14:00 SSA9193 (Rec: 03/12/19 15:07 TXR2717 MED-C07) Document 03/12/19 20:44 IVY6993 (Rec: 03/12/19 20:46 UWG5351 MED-C09) Document 03/12/19 22:00 ZBT0466 (Rec: 03/12/19 22:24 GNE2123 MED-C11) Document 03/13/19 05:08 MKF6717 (Rec: 03/13/19 05:10 YHM5518 MED-C14) Document 03/13/19 14:00 JKU9123 (Rec: 03/13/19 17:05 LYB5348 MED-C11) Document 03/13/19 21:28 CPM7006 (Rec: 03/13/19 21:32 JSK5825 MED-C04) Document 03/14/19 05:24 TUV1674 (Rec: 03/14/19 05:25 IRC8067 MED-C04) Document 03/14/19 12:48 RGB4030 (Rec: 03/14/19 12:48 PIE0894 MED-C11) Document 03/14/19 22:00 LHM1020 (Rec: 03/14/19 22:44 AHS0027 MED-C07) Document 03/15/19 05:50 [id number] (Rec: 03/15/19 05:51 [id number] MED-C02) - Physical Exam General Physical Exam Comment: warm and well perfused - sitting in a chair. Alert and oriented x 3 - able to give an account of himself. Dressing on right foot General: No Cyanosis, Yes Anemia, No Jaundice, No Clubbing Skin: Normal: Rash Lungs and Chest: Yes: Chest Expansion Full, Chest Expansion Symetrica, Percussion Note Resonant, Vessicular Breath Sounds. No: Crackles, Wheezes Heart Rate and Rhythm: Regular Additional Cardiovascular: Yes: Normal Heart Sounds. No: Heart Murmur, Pedal Edema Abdominal Exam: Yes: Soft, Bowel Sounds Present. No: Distention, Abdominal Mass , Hepatomegaly, Abdominal Tenderness Results - Results Lab Results: Laboratory Results - last 24 hr 03/14/19 03/14/19 03/15/19 08:59 21:11 05:34 Hgb 8.6 L Hct 27 L POC Glucose (mg/dL) 167 H 144 H C-Reactive Protein 03/15/19 05:34 Hgb Hct POC Glucose (mg/dL) C-Reactive Protein 84.51 H Assessment - Problem List Assessment: Patient Problems Amputation toe (Acute) Cellulitis of foot, right (Acute) GI hemorrhage (Acute) Iron deficiency anemia (Acute) Osteomyelitis of toe of right foot (Acute) Positive fecal occult blood test (Acute) Alcohol dependence (Chronic) Atrial fibrillation (Chronic) Cerebrovascular disease (Chronic) Depressive disorder (Chronic) Diabetes mellitus type 2 (Chronic) Diabetic foot ulcer (Chronic) Diabetic peripheral neuropathy (Chronic) Diabetic renal disease (Chronic) Diabetic retinopathy (Chronic) Essential hypertension (Chronic) History of SBE (subacute bacterial endocarditis) (Chronic) Hyperlipidemia (Chronic) Mitral valve replacement xenograft (Chronic) Peripheral vascular disease (Chronic) Plan: 1. Amputation right 2nd foot - he will receive a total of 42 days of IV ancef. Today before discharge: * PICC line * Set up home visiting nurse - his has managed PICC lines and home IV antibacterials previously * No alcohol. 2. GI hemorrhage * for 3rd infusion of iron today before discharge * Complete course as outpatient * Follow with GI 3. History of atrial fibrillation/anticoagulation - he has an ectopic atrial rhythm at present - this is not atrial fibrillation. Nonetheless, I will restart his warfarin after discharge at a transition of care visit. I explained this to the patient
[2019-03-15] MEDS: Multivitamins/Minerals TAB PO SCH (08:17)
[2019-03-15] MEDS: Ferrous Sulfate TAB* 325 MG PO SCH (08:17)
[2019-03-15] MEDS: Pantoprazole TAB * 40 MG TAB PO SCH (08:17)
[2019-03-15] MEDS: Thiamine TAB* 100 MG TAB PO SCH (08:17)
[2019-03-15] MEDS: Dronedarone TAB* 400 MG PO SCH ×2 (08:18→18:26)
[2019-03-15] MEDS: Ascorbic Acid TAB* 500 MG PO SCH (08:18)
[2019-03-15] MEDS: Folic Acid TAB* 1 MG PO SCH (08:18)
[2019-03-15] MEDS: Magnesium Oxide TAB* 400 MG PO SCH (08:18)
[2019-03-15] MEDS: Sertraline* 50 MG TAB PO SCH (08:20)
[2019-03-15] MEDS: Iron Sucrose* 200 MG in NS 0.9% 100 ML* 100 ML IVPB SCH (08:21)
[2019-03-15] MEDS: Acetaminophen TAB* 325 MG PO PRN (08:21)
[2019-03-15] MEDS: Docusate CAP* 100 MG PO SCH (08:22)
[2019-03-15] MEDS: Magnesium Hydroxide LIQ* 30 ML UDC PO SCH (08:22)
--- NOTE | 2019-03-15 11:23 | PN ---
Progress Note - Progress Note Date of Service: 03/15/19 SOAP: Subjective: []Pt seen at bedside, R foot nonpainful. Denies fever or chills. No new complaints. Anxious to get out of the hospital, or change rooms due to issue with roommate. Objective: []General: Appears well, NAD RLE: Splint CDI, able to wiggle exposed toes without pain, cap refill less than two seconds distally. No erythema proximal or distal to splint L calf supple and nontender Assessment: [] s/p right foot I&D, 2nd toe amputation, metatarsal head resection and right gastroc recession Plan: []Cultures show Group B strep, ancef 2 gm IV Q8hrs, day NWB RLE Follow up with Dr. Rollins ~10 days post op Keep splint CDI until follow up Awaiting PICC line for IV abx Nursing contact PICC team to expedite placement if possible, nursing made aware of desire to change rooms Vital Signs Temp 98.7 F 03/15/19 10:50 Pulse 75 03/15/19 10:50 Resp 24 03/15/19 10:50 BP 165/53 03/15/19 10:50 Pulse Ox 100 03/15/19 10:50 Intake & Output 03/14/19 03/15/19 03/15/19 18:59 06:59 18:59 Intake Total 938 110 240 Output Total 325 Balance 938 -215 240 Intake: IVPB 218 110 ABX - CEFAZOLIN 108 110 iron sucrose 110 Oral 720 0 240 Output: Urine 325 Other: Estimated Void Medium Date of Last Bowel 03/14/19 Movement # Bowel Movements 1 1 Estimated Stool Amount Small # Voids 1 1 Laboratory Last Values WBC 6.1 10^3/uL (3.5-10.8) 03/13/19 07:51 RBC 3.53 10^6 /uL (4.18-5.48) L 03/13/19 07:51 RBC (Retic) 2.84 10^6/uL (4.18-5.48) L 03/07/19 07:28 Hgb 8.6 g/dL (14.0-18.0) L 03/15/19 05:34 Hct 27 % (42-52) L 03/15/19 05:34 HCT (Retic) 21 % (42-52) L 03/07/19 07:28 MCV 76 fL (80-94) L 03/13/19 07:51 MCH 24 pg (27-31) L 03/13/19 07:51 MCHC 32 g/dL (31-36) 03/13/19 07:51 RDW 20 % (10-15) H 03/13/19 07:51 Plt Count 203 10^3/uL (150-450) 03/13/19 07:51 MPV 8.1 fL (7.4-10.4) 03/13/19 07:51 Neut % (Auto) 74.3 % 03/13/19 07:51 Lymph % (Auto) 12.3 % 03/13/19 07:51 Harvey % (Auto) 10.5 % 03/13/19 07:51 Eos % (Auto) 2.0 % 03/13/19 07:51 Baso % (Auto) 0.9 % 03/13/19 07:51 Absolute Neuts (auto) 4.6 10^3/ul (1.5-7.7) 03/13/19 07:51 Absolute Lymphs (auto) 0.7 10^3/ul (1.0-4.8) L 03/13/19 07:51 Absolute Monos (auto) 0.6 10^3/ul (0-0.8) 03/13/19 07:51 Absolute Eos (auto) 0.1 10^3/ul (0-0.6) 03/13/19 07:51 Absolute Basos (auto) 0.1 10^3/ul (0-0.2) 03/13/19 07:51 Absolute Nucleated RBC 0.0 10^3/ul 03/13/19 07:51 Nucleated RBC % 0.0 03/13/19 07:51 Hypochromasia 2+ 03/06/19 16:43 Anisocytosis 1+ 03/06/19 16:43 Microcytosis 1+ 03/06/19 16:43 Tear Drop Cells 1+ 03/06/19 16:43 Elliptocytes 1+ 03/06/19 16:43 Retic Count, Calc 2.1 % (0.5-1.5) H 03/07/19 07:28 Corrected Retic Count 1.0 % (0.5-1.5) 03/07/19 07:28 Retic Shift Factor 2.0 03/07/19 07:28 Retic Production Index 0.50 03/07/19 07:28 Immature Retic Fraction 0.51 03/07/19 07:28 Mean Retic Volume 100.6 03/07/19 07:28 INR (Anticoag Therapy) 1.31 (0.82-1.09) H 03/11/19 06:09 APTT 36.5 seconds (26.0-38.0) 03/10/19 05:53 Sodium 141 mmol/L (135-145) 03/13/19 07:50 Potassium 3.7 mmol/L (3.5-5.0) 03/13/19 07:50 Chloride 110 mmol/L (101-111) 03/13/19 07:50 Carbon Dioxide 23 mmol/L (22-32) 03/13/19 07:50 Anion Gap 8 mmol/L (2-11) 03/13/19 07:50 BUN 15 mg/dL (6-24) 03/13/19 07:50 Creatinine 1.46 mg/dL (0.67-1.17) H 03/13/19 07:50 Est GFR ( Amer) 57.8 (>60) 03/13/19 07:50 Est GFR (Non-Af Amer) 47.7 (>60) 03/13/19 07:50 BUN/Creatinine Ratio 10.3 (8-20) 03/13/19 07:50 Glucose 131 mg/dL (70-100) H 03/13/19 07:50 POC Glucose (mg/dL) 144 mg/dL (70-100) H 03/14/19 21:11 Hemoglobin A1c 7.2 % (4.0-5.6) H 03/07/19 07:28 Lactic Acid 1.0 mmol/L (0.5-2.0) 03/06/19 16:43 Calcium 9.2 mg/dL (8.6-10.3) 03/13/19 07:50 Magnesium 1.7 mg/dL (1.9-2.7) L 03/07/19 07:28 Iron 20 ug/dL (50-212) L 03/06/19 16:43 TIBC 465 mcg/dL (250-450) H 03/06/19 16:43 % Saturation 4 % (15-55) L 03/06/19 16:43 Unsat Iron Binding < 450 ug/dL 03/06/19 16:43 Transferrin 332 mg/dL (203-362) 03/06/19 16:43 Ferritin 8.5 ng/mL (24-336) L 03/06/19 16:43 Total Bilirubin 0.40 mg/dL (0.2-1.0) 03/06/19 16:43 GGT 36 U/L (9-64.0) 03/08/19 09:17 AST 21 U/L (13-39) 03/06/19 16:43 ALT 17 U/L (7-52) 03/06/19 16:43 Alkaline Phosphatase 76 U/L (34-104) 03/06/19 16:43 C-Reactive Protein 84.51 mg/L (<8.01) H 03/15/19 05:34 Total Protein 6.9 g/dL (6.4-8.9) 03/06/19 16:43 Albumin 4.0 g/dL (3.2-5.2) 03/06/19 16:43 Globulin 2.9 g/dL (2-4) 03/06/19 16:43 Albumin/Globulin Ratio 1.4 (1-3) 03/06/19 16:43 Vitamin B12 387 pg/mL (180-914) 03/06/19 16:43 Folate > 20.00 ng/mL (>3.99) 03/06/19 16:43 Urine Color Yellow 03/06/19 18:36 Urine Appearance Clear 03/06/19 18:36 Urine pH 5.0 (5-9) 03/06/19 18:36 Ur Specific [place] 1.013 (1.010-1.030) 03/06/19 18:36 Urine Protein 1+(30 mg/dl) (Negative) A 03/06/19 18:36 Urine Ketones Negative (Negative) 03/06/19 18:36 Urine Blood Negative (Negative) 03/06/19 18:36 Urine Nitrate Negative (Negative) 03/06/19 18:36 Urine Bilirubin Negative (Negative) 03/06/19 18:36 Urine Urobilinogen Negative (Negative) 03/06/19 18:36 Ur Leukocyte Esterase Negative (Negative) 03/06/19 18:36 Urine WBC (Auto) Trace(0-5/hpf) (Absent) 03/06/19 18:36 Urine RBC (Auto) Absent (Absent) 03/06/19 18:36 Urine Bacteria Absent (Absent) 03/06/19 18:36 Hyaline Casts Present (Absent) A 03/06/19 18:36 Urine Glucose Negative (Negative) 03/06/19 18:36 Vancomycin Trough 21.4 mcg/mL 03/10/19 08:56 IgA 456 mg/dL (61 - 356) H 03/07/19 21:38 Tiss Transglutamin IgG <1.2 U/mL 03/07/19 21:38 Tiss Transglutamin IgA 3.4 U/mL 03/07/19 21:38 Blood Type O Positive 03/06/19 16:43 Antibody Screen Negative 03/06/19 16:43 Crossmatch See Detail 03/06/19 16:43
[2019-03-15 15:42] VITALS: BP 166/54
[2019-03-15] MEDS: Lisinopril TAB* 10 MG PO SCH (18:26)
[2019-03-15] MEDS: Tamsulosin CAP* 0.4 MG PO SCH (18:26)
[2019-03-15] MEDS: Atorvastatin* 20 MG TAB PO SCH (18:26)
--- NOTE | 2019-03-20 13:54 | DS ---
CC: Dr. Mansoor Cox; Dr. Rosales; Dr. Toy Rollins DISCHARGE SUMMARY: DATE OF ADMISSION: 03/06/19 DATE OF DISCHARGE: 03/15/19 DISCHARGE DIAGNOSES: 1. Osteomyelitis, right second toe and metatarsal head. 2. Gastrointestinal hemorrhage with marked anemia. PROCEDURES: 1. Blood transfusion x3 units of packed cells. 2. 03/11/19, Dr. Toy Rollins performed right second toe amputation at the level of the MTP joint, right second metatarsal head excision, right gastrocnemius recession. 3. PICC line placement. SECONDARY DIAGNOSES: 1. Type 2 diabetes mellitus, well controlled. 2. Iron-deficiency anemia. 3. Alcoholism. 4. Atrial fibrillation. 5. Cerebrovascular disease. 6. 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 7. Peripheral vascular disease. 8. Hyperlipidemia. 9. Essential hypertension. 10. Obesity. 11. Diabetic retinopathy, nephropathy, and neuropathy. 12. Depressive disorder. CONDITION AT DISCHARGE: Fair. DISPOSITION: Home. HISTORY: Henrique Golden is a 68-year-old white male. His presentation is documented in Estephanie Diaz NP's admitting history and physical. In short, he has had a longstanding history of an ulcer on ak s right second toe, which resulted in increasing pain prior to admission. He felt more fatigued than usual and was sent to the emergency room by his surveillance director due to increased erythema of his right fo ot. In the emergency room, he was found to have a fever of 101 degrees Fahrenheit and a hemoglobin o f 6.9, hematocrit of 22. EXAMINATION: Vital signs: Temperature 100, pulse 80, respirations 16, oxygen saturation 100% on salbador m air, blood pressure 134/84. Ulceration over the plantar aspect of his right foot at the base of hi s great toe without drainage. Erythema noted over the surrounding skin in lower leg. INITIAL INVESTIGATION: White count 10.2, hemoglobin 6.9, hematocrit 22, platelets 180. INR 2.71. S odium 136, potassium 4.1, chloride 107, bicarbonate 20, anion gap was 9. BUN 26, creatinine 1.52, la ctic acid 1. Normal LFTs. CRP was 84.66. Chest x-ray was benign. INITIAL ASSESSMENT: 1. Cellulitis. He was started on vancomycin and Zosyn. 2. Anemia. This was worked up, and he was given empirically some packed red cells. INVESTIGATIONS: 03/06/19, x-ray of the right foot showed subluxed second MTP post first toe amputati on. MRI of right foot on 03/08/19 findings suggestive of osteomyelitis involving the distal second m etatarsal, less likely traumatic change in foot around the second toe due to tenosynovitis and possib ility of an abscess. 03/09/19, STEPHENIE: Normal STEPHENIE on the right, normal toe brachial on the left. Cardiovascular: 03/06/19, EKG: Rate 72, NE interval 173, QRS axis 50, QTc 451, ectopic atrial rhyth m. 03/08/19 transthoracic echocardiogram, read by Dr. Edinson Fabian: Bioprosthesis in the mitral valve n ot seen well enough to exclude endocarditis. No change in function compared to previous echo. CONSULTATIONS: 03/09/19, Dr. Toy Rollins for Orthopedics: Right second toe and second metatarsal head osteomyelitis in the setting of diabetic neuropathy. Discussed management. The patient agreed a mputation of that affected area. 03/09/19, seen by Dr. Mansoor Cox. Recommended ongoing vancomycin and Zosyn prior to the amputa tion. 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 03/10/19, Dr. Leidy Rosales: Anemia plus fecal occult blood positive with a previous episode o f profound anemia in 2012. At that time, he had had an EGD and colonoscopy which were negative. She recommended repeating the same evaluation. Surgical procedure, 03/11/19: Amputation of right second toe MTP joint, right second metatarsal head excision. The patient tolerated this well. 03/12/19, Dr. Tyree Bergeron: Colonoscopy and EGD: No abnormalities on colonoscopy. EGD: A small s liding hiatal hernia, normal upper endoscopy. He recommended slow reintroduction of warfarin and par enteral iron. HOSPITAL COURSE: Henrique Golden presented with osteomyelitis of his right second toe and metatarsal and possible abscess. This was managed surgically and he tolerated the amputation. He also received IV antibiotics during his hospital stay. After the amputation, he was seen in consultation once more by the infectious disease team, who transferred him onto a 42-day course of cefazolin 2 g 3 times a day via a syringe powder truck driver. He tolerated the antibiotics well. He presented with marked anemia. He had a previous similar episode in 2013 when his hemoglobin went as low as 4.9. On this occasion, we transfused him 3 units and also gave him 3/5 iron infusions. His hospital bed stay was not complicated. Otherwise, he had no further GI bleed. His hemoglobin and hematocrit stayed stable. He had good control of pain. We placed a PICC line so that he could rece rachel his IV antibiotics. On the day of discharge, he was feeling fine. He was in no pain. He had a good appetite. He had no diarrhea from the antibiotics. He had no black stool. PHYSICAL EXAMINATION ON THE DAY OF DISCHARGE: Vital Signs: Temperature 97.9, pulse 68, respirations 20, blood pressure 173/66, oxygen saturation 96%. Warm and well perfused, in no acute distress. Si tting in a chair. Alert and oriented x3. Giving a good account of himself. He had bandage on his ri ght foot. No cyanosis. He was anemic. No jaundice or clubbing. No rash. Respiratory System: Ches t expansion full and symmetrical. Percussion note resonant. Breath sounds vesicular. No crackles o r wheezes. Cardiovascular System: Pulse regular. Heart sounds normal. No added sounds or murmurs. No edema. Abdomen: Soft, no distention. Bowel sounds present. No masses or hepatomegaly or tend erness. INVESTIGATIONS: 03/15/19: Hemoglobin 8.6, hematocrit 27, glucose 169. C-reactive protein 84.54. SESSMENT AND PLAN: 1. Amputation of right second toe and metatarsal. He is to continue with outpatient intravenous cef azolin per recommendation by Dr. Cox for 42 days. Both the patient and his have experience with this and a visiting nurse service has been triggered. He is tolerating the PICC line placement. 2. Gastrointestinal hemorrhage. We have been unable to see any pathology in his colon or in his upp er GI by endoscopy. He is likely to have focus of bleeding in between these 2 endoscopy sites, maybe he has an arteriovenous malformation in his small bowel. He will have an outpatient followup to det ermine whether there is going to be any further investigation. 3. Atrial fibrillation/anticoagulation. I will decide on restarting the warfarin as an outpatient. 4. Type 2 diabetes mellitus. Well controlled. 5. Alcoholism. He is to stop any alcohol during his antibiotic treatment. 6. Complications of diabetes: These are ongoing. 7. Essential hypertension. He will resume his usual antihypertensives as an outpatient. 8. History of mitral valve replacement. This appears to be working well. His blood cultures were n egative. It is very unlikely he has infective endocarditis. MEDICATIONS ON DISCHARGE: 1. Ancef 2 g t.i.d. via syringe powder truck driver IV through PICC line. 2. Sertraline 150 mg daily. 3. Lisinopril 10 mg q.h.s. 4. Pantoprazole 40 mg daily. 5. Atorvastatin 20 mg q.h.s. 6. Tamsulosin 0.4 mg q.h.s. 7. Magnesium oxide 400 mg twice daily. I discontinued iron, vitamin C, and warfarin. SPECIAL MEASURES: 1. He has a transition of care visit arranged with me as I am his primary care physician. 2. Infectious Diseases: He will follow with Dr. Mansoor Cox to determine the full course of hi s antibiotics. I will check his C-reactive protein during his recovery phase. 3. GI hemorrhage and iron-deficiency anemia. We will complete his iron infusions as an outpatient. He will follow up with Gastroenterology as an outpatient. 4. He has an outpatient appointment booked with Dr. Rollins. [id number]/[facility] #: [id number]
== END 2019-03-15 20:20 | disposition home health service (06) | DRG 580 ==
LOC: ED 16:06 → MED 18:15
PROVIDERS: ADMIT Internal Medicine; ATTEND Internal Medicine
PROC: 30233N1 Transfusion of Nonautologous Red Blood Cells into Peripheral Vein, Percutaneous Approach (ICD-10-PCS; 2019-03-09)
PROC: 0L8N0ZZ Division of Right Lower Leg Tendon, Open Approach (ICD-10-PCS; 2019-03-11)
PROC: 0QBN0ZZ Excision of Right Metatarsal, Open Approach (ICD-10-PCS; 2019-03-11)
PROC: 0Y6R0Z0 Detachment at Right 2nd Toe, Complete, Open Approach (ICD-10-PCS; principal; 2019-03-11 10:45)
PROC: 0DJ08ZZ Inspection of Upper Intestinal Tract, Via Natural or Artificial Opening Endoscopic (ICD-10-PCS; 2019-03-12)
PROC: 0DJD8ZZ Inspection of Lower Intestinal Tract, Via Natural or Artificial Opening Endoscopic (ICD-10-PCS; 2019-03-12)
PROC: 02HV33Z Insertion of Infusion Device into Superior Vena Cava, Percutaneous Approach (ICD-10-PCS; 2019-03-15)
DX: L03.115 Cellulitis of right lower limb (principal); M86.171 Other acute osteomyelitis, right ankle and foot; L02.611 Cutaneous abscess of right foot; I47.1 Supraventricular tachycardia; K92.2 Gastrointestinal hemorrhage, unspecified; E11.69 Type 2 diabetes mellitus with other specified complication; E78.5 Hyperlipidemia, unspecified; F32.9 Major depressive disorder, single episode, unspecified; E66.9 Obesity, unspecified; I48.91 Unspecified atrial fibrillation; E11.621 Type 2 diabetes mellitus with foot ulcer; L97.519 Non-pressure chronic ulcer of other part of right foot with unspecified severity; E11.40 Type 2 diabetes mellitus with diabetic neuropathy, unspecified; E11.51 Type 2 diabetes mellitus with diabetic peripheral angiopathy without gangrene; K21.9 Gastro-esophageal reflux disease without esophagitis; N18.9 Chronic kidney disease, unspecified; I12.9 Hypertensive chronic kidney disease with stage 1 through stage 4 chronic kidney disease, or unspecified chronic kidney disease; I25.10 Atherosclerotic heart disease of native coronary artery without angina pectoris; E78.00 Pure hypercholesterolemia, unspecified; J45.909 Unspecified asthma, uncomplicated; D50.9 Iron deficiency anemia, unspecified; K44.9 Diaphragmatic hernia without obstruction or gangrene; M62.461 Contracture of muscle, right lower leg; B95.1 Streptococcus, group B, as the cause of diseases classified elsewhere; E11.42 Type 2 diabetes mellitus with diabetic polyneuropathy; F10.20 Alcohol dependence, uncomplicated; E11.22 Type 2 diabetes mellitus with diabetic chronic kidney disease; E11.319 Type 2 diabetes mellitus with unspecified diabetic retinopathy without macular edema; R19.5 Other fecal abnormalities; M60.9 Myositis, unspecified; E11.36 Type 2 diabetes mellitus with diabetic cataract; F41.9 Anxiety disorder, unspecified; F43.10 Post-traumatic stress disorder, unspecified; Z87.891 Personal history of nicotine dependence; Z68.30 Body mass index [BMI] 30.0-30.9, adult; Z86.73 Personal history of transient ischemic attack (TIA), and cerebral infarction without residual deficits; Z89.411 Acquired absence of right great toe; Z88.8 Allergy status to other drugs, medicaments and biological substances; Z88.1 Allergy status to other antibiotic agents; Z91.041 Radiographic dye allergy status; Z91.010 Allergy to peanuts; Z91.048 Other nonmedicinal substance allergy status; Z82.49 Family history of ischemic heart disease and other diseases of the circulatory system; Z83.3 Family history of diabetes mellitus; Z80.1 Family history of malignant neoplasm of trachea, bronchus and lung; Z72.89 Other problems related to lifestyle; Z98.62 Peripheral vascular angioplasty status; Z95.2 Presence of prosthetic heart valve; Z86.010 Personal history of colon polyps; Z80.9 Family history of malignant neoplasm, unspecified; Z87.01 Personal history of pneumonia (recurrent)
CPT/HCPCS: 36415; 71045; 71046; 80048; 80053; 80202; 81003; 81015; 82272; 82565; 82607; 82728; 82746; 82784; 82977; 83036; 83516; 83540; 83550; 83605; 83735; 84520; 85014; 85018; 85025; 85045; 85610; 85730; 86140; 86850; 86900; 86901; 86922; 87040; 87070; 87073; 87077; 87086; 87186; 87205; 88304; 88311; 93005; 93306; 93922; 99156; 99157; 99283; A9270-GY; C1751; C8929; G8978-GP-CK; G8979-GP-CI; G8987-GO-CK; G8988-GO-CI; J0690; J1756; J2001; J2250; J2543; J2704; J3010; J3370; J3411; J3475; J3490; P9040

== ENCOUNTER 2021-03-21 11:26 | Inpatient (IN) ==
[2021-03-21 12:33] LABS: ABS Lymphocytes 0.6 10^3/ul (1.0-4.8); ABS Monocytes 0.4 10^3/ul (0-0.8); ABS Neutrophils 4.3 10^3/ul (1.5-7.7); Eosinophil % 0.5 %; Hematocrit 25 % (42-52); Hemoglobin 7.9 g/dL (14.0-18.0); Lymphocyte % 10.8 %; Mean Corpuscular HGB Conc 32 g/dL (31-36); Mean Corpuscular Hemoglobin 30 pg (27-31); Mean Corpuscular Volume 94 fL (80-94); Mean Platelet Volume 8.4 fL (7.4-10.4); Nucleated Red Blood Cells % 0.4; Platelet Count 167 10^3/uL (150-450); Red Blood Count 2.61 10^6 /uL (4.18-5.48); Red Cell Distribution Width 19 % (10-15); White Blood Count 5.3 10^3/uL (3.5-10.8)
[2021-03-21 12:50] LABS: ALT 21 U/L (7-52); AST 31 U/L (13-39); Albumin 3.9 g/dL (3.2-5.2); Albumin/Globulin Ratio 1.4 (1-3); Alkaline Phosphatase 98 U/L (35-149); Anion Gap 9 mmol/L (2-11); Blood Urea Nitrogen 27 mg/dL (6-24); CO2 Carbon Dioxide 19 mmol/L (22-32); Chloride 110 mmol/L (101-111); Creatine Kinase 46 U/L (10-223); EGFR African American 51.3 (>60); EGFR Non-African American 42.4 (>60); Globulin 2.7 g/dL (2-4); Glucose 96 mg/dL (70-100); Magnesium 1.7 mg/dL (1.9-2.7); Potassium 4.7 mmol/L (3.5-5.0); Sodium 138 mmol/L (135-145); Total Protein 6.6 g/dL (6.4-8.9)
[2021-03-21 12:51] LABS: INR 4.98 (0.86-1.15)
[2021-03-21 12:53] LABS: Troponin I 0.03 ng/mL (<0.03)
[2021-03-21] MEDS ORDERED: Prothrombin Complex Conc. DOSE = Units Factor IX (nine) IV SLOW PU ONE (13:04)
[2021-03-21] MEDS ORDERED: Magnesium Sulfate IV 1GM/100ML 1 GM/100 ML BAG IV ONE (13:15)
[2021-03-21] MEDS ORDERED: Pantoprazole 80 mg in NS BAG 80 MG/250 ML BAG IV ONE (13:22)
[2021-03-21] MEDS ORDERED: NS 0.9% 500 ml BAG 500 ML IV ONE (13:23)
[2021-03-21] MEDS ORDERED: Pantoprazole VIAL 40 MG VIAL IV ONE (13:31)
[2021-03-21] MEDS ORDERED: Ondansetron 4 mg VIAL 2 MG/ML 2 ml VIAL IV PRN (16:07)
[2021-03-21 16:25] LABS: Rapid COVID-19 Molecular Undetected (Undetected)
[2021-03-21] MEDS ORDERED: Furosemide 40 mg/4 ml IV VIAL IV ONE (17:31)
[2021-03-21 17:38] LABS: Troponin I 0.03 ng/mL (<0.03)
[2021-03-21] MEDS ORDERED: Lorazepam PYXIS KEY PRN (18:25)
[2021-03-21] MEDS ORDERED: LORazepam 2 mg VIAL 1 ml IV PUSH PRN (18:25)
[2021-03-21 19:36] LABS: Corrected Retic Count 3.3 % (0.5-1.5); Hematocrit for Retic CNT 25 % (42-52); Immature Retic Fraction 0.59; RBC Retic Count 2.61 10^6/uL (4.18-5.48)
[2021-03-21 20:07] LABS: ABS Lymphocytes 0.7 10^3/ul (1.0-4.8); ABS Monocytes 0.5 10^3/ul (0-0.8); Eosinophil % 0.7 %; Hematocrit 29 % (42-52); Hemoglobin 9.1 g/dL (14.0-18.0); Lymphocyte % 11.7 %; Mean Corpuscular HGB Conc 31 g/dL (31-36); Mean Corpuscular Hemoglobin 29 pg (27-31); Mean Corpuscular Volume 94 fL (80-94); Mean Platelet Volume 8.5 fL (7.4-10.4); Nucleated Red Blood Cells % 0.2; Platelet Count 173 10^3/uL (150-450); Red Blood Count 3.08 10^6 /uL (4.18-5.48); Red Cell Distribution Width 18 % (10-15); White Blood Count 6.3 10^3/uL (3.5-10.8)
[2021-03-21 20:09] LABS: Urine Appearance Clear; Urine Bilirubin Negative (Negative); Urine Blood Negative (Negative); Urine Color Yellow; Urine Glucose Negative (Negative); Urine Ketones Negative (Negative); Urine Nitrite Negative (Negative); Urine Protein Negative (Negative); Urine Specific Gravity 1.011 (1.002-1.030); Urine Urobilinogen Negative (Negative)
[2021-03-21 20:24] LABS: % Iron Saturation 73 % (15-55); Iron 271 ug/dL (50-212); LDH 218 U/L (140-271); Total Iron Binding Capacity 370 mcg/dL (250-450); Transferrin 264 mg/dL (203-362); Unsaturated Iron Binding 99 ug/dL
[2021-03-21 20:26] LABS: UR Microalbumin (mg/L) 38.5 mg/L; Urine Creatinine 82.19 mg/dL; Urine Creatinine Concentration 82.19 mg/dL; Urine Microalbumin/Creatinine 46.8 (<31)
[2021-03-21 20:51] LABS: Ferritin 364.9 ng/mL (24-336)
[2021-03-21] MEDS: Thiamine 100 MG/ML 2 ml VIAL 100 MG in NS 0.9% 50 ML 50 ML IV SCH (21:51)
[2021-03-21] MEDS: Pantoprazole VIAL 40 MG VIAL IV SCH (22:42)
[2021-03-22 06:28] LABS: ABS Lymphocytes 0.6 10^3/ul (1.0-4.8); ABS Monocytes 0.5 10^3/ul (0-0.8); ABS Neutrophils 4.6 10^3/ul (1.5-7.7); Eosinophil % 0.5 %; Hematocrit 28 % (42-52); Hemoglobin 8.9 g/dL (14.0-18.0); Lymphocyte % 10.1 %; Mean Corpuscular HGB Conc 32 g/dL (31-36); Mean Corpuscular Hemoglobin 30 pg (27-31); Mean Corpuscular Volume 95 fL (80-94); Mean Platelet Volume 9.1 fL (7.4-10.4); Nucleated Red Blood Cells % 0.2; Platelet Count 159 10^3/uL (150-450); Red Blood Count 2.93 10^6 /uL (4.18-5.48); Red Cell Distribution Width 18 % (10-15); White Blood Count 5.7 10^3/uL (3.5-10.8)
[2021-03-22 06:45] LABS: Albumin 3.7 g/dL (3.2-5.2); Albumin/Globulin Ratio 1.4 (1-3); EGFR African American 51.7 (>60); EGFR Non-African American 42.7 (>60); Globulin 2.6 g/dL (2-4); Magnesium 1.8 mg/dL (1.9-2.7); Potassium 4.2 mmol/L (3.5-5.0); Total Bilirubin 0.7 mg/dL (0.2-1.0); Total Protein 6.3 g/dL (6.4-8.9)
[2021-03-22 06:46] LABS: INR 1.73 (0.86-1.15)
[2021-03-22] MEDS: Pantoprazole VIAL 40 MG VIAL IV SCH ×2 (08:36→23:04)
[2021-03-22] MEDS ORDERED: Magnesium Sulfate 2 gm BAG 2 GM/50 ML BAG IVPB ONE (09:21)
[2021-03-22] MEDS ORDERED: Furosemide 40 mg/4 ml IV VIAL IV ONE (09:21)
[2021-03-22 19:37] LABS: ABS Lymphocytes 0.5 10^3/ul (1.0-4.8); ABS Monocytes 0.4 10^3/ul (0-0.8); ABS Neutrophils 4.8 10^3/ul (1.5-7.7); Eosinophil % 0.5 %; Hematocrit 28 % (42-52); Hemoglobin 9.1 g/dL (14.0-18.0); Lymphocyte % 8.3 %; Mean Corpuscular HGB Conc 33 g/dL (31-36); Mean Corpuscular Hemoglobin 31 pg (27-31); Mean Corpuscular Volume 94 fL (80-94); Mean Platelet Volume 8.7 fL (7.4-10.4); Nucleated Red Blood Cells % 0.3; Platelet Count 159 10^3/uL (150-450); Red Blood Count 2.98 10^6 /uL (4.18-5.48); Red Cell Distribution Width 20 % (10-15); White Blood Count 5.7 10^3/uL (3.5-10.8)
[2021-03-22] MEDS: Thiamine 100 MG/ML 2 ml VIAL 100 MG in NS 0.9% 50 ML 50 ML IV SCH (19:55)
[2021-03-23 05:36] LABS: ABS Eosinophils 0.1 10^3/ul (0-0.6); ABS Lymphocytes 0.5 10^3/ul (1.0-4.8); ABS Monocytes 0.5 10^3/ul (0-0.8); ABS Neutrophils 4.8 10^3/ul (1.5-7.7); Hematocrit 29 % (42-52); Hemoglobin 9.5 g/dL (14.0-18.0); Lymphocyte % 8.9 %; Mean Corpuscular HGB Conc 33 g/dL (31-36); Mean Corpuscular Hemoglobin 31 pg (27-31); Mean Corpuscular Volume 94 fL (80-94); Mean Platelet Volume 8.8 fL (7.4-10.4); Nucleated Red Blood Cells % 0.1; Platelet Count 157 10^3/uL (150-450); Red Blood Count 3.09 10^6 /uL (4.18-5.48); Red Cell Distribution Width 19 % (10-15); White Blood Count 5.9 10^3/uL (3.5-10.8)
[2021-03-23 05:47] LABS: Calcium 9.1 mg/dL (8.6-10.3); EGFR African American 61.3 (>60); EGFR Non-African American 50.6 (>60); INR 2.3 (0.86-1.15); Magnesium 1.9 mg/dL (1.9-2.7); Potassium 3.7 mmol/L (3.5-5.0)
[2021-03-23] MEDS ORDERED: Magnesium Sulfate IV 3 GM in NS 0.9% 100 ml BAG 100 ML IVPB ONE (08:00)
[2021-03-23] MEDS ORDERED: Furosemide 40 mg/4 ml IV VIAL IV ONE (09:16)
[2021-03-23] MEDS: Pantoprazole VIAL 40 MG VIAL IV SCH ×2 (09:30→21:47)
[2021-03-23] MEDS: Furosemide 40 mg/4 ml IV VIAL IV SCH ×2 (09:39→18:13)
[2021-03-23] MEDS: KCL 10 MEQ/50 ML IVPREMIX 10 MEQ/50 ML BAG IV SCH ×4 (09:41→12:50)
[2021-03-23 12:11] LABS: TSH Ultra Thyroid Stim Horm 1.28 mcIU/mL (0.34-5.60)
[2021-03-23 12:13] LABS: Free T3 2.5 pg/mL (2.5-3.9)
[2021-03-23 12:15] LABS: Free T4 1.04 ng/dL (0.61-1.12)
[2021-03-23 15:05] LABS: Haptoglobin 101 mg/dL (30 - 200)
[2021-03-23] MEDS: Thiamine 100 MG/ML 2 ml VIAL 100 MG in NS 0.9% 50 ML 50 ML IV SCH (19:51)
[2021-03-24 04:57] LABS: ABS Eosinophils 0.1 10^3/ul (0-0.6); ABS Lymphocytes 0.6 10^3/ul (1.0-4.8); ABS Monocytes 0.6 10^3/ul (0-0.8); ABS Neutrophils 4.3 10^3/ul (1.5-7.7); Eosinophil % 1.4 %; Hematocrit 32 % (42-52); Hemoglobin 10.1 g/dL (14.0-18.0); Lymphocyte % 11.1 %; Mean Corpuscular HGB Conc 32 g/dL (31-36); Mean Corpuscular Hemoglobin 31 pg (27-31); Mean Corpuscular Volume 95 fL (80-94); Mean Platelet Volume 8.5 fL (7.4-10.4); Nucleated Red Blood Cells % 0.1; Platelet Count 165 10^3/uL (150-450); Red Blood Count 3.31 10^6 /uL (4.18-5.48); Red Cell Distribution Width 21 % (10-15); White Blood Count 5.6 10^3/uL (3.5-10.8)
[2021-03-24 05:01] LABS: INR 2.12 (0.86-1.15)
[2021-03-24 05:12] LABS: EGFR African American 63.4 (>60); EGFR Non-African American 52.4 (>60); Magnesium 1.7 mg/dL (1.9-2.7); Potassium 3.6 mmol/L (3.5-5.0)
[2021-03-24] MEDS: Furosemide 40 mg/4 ml IV VIAL IV SCH ×2 (07:53→15:49)
[2021-03-24] MEDS: Pantoprazole VIAL 40 MG VIAL IV SCH ×2 (07:53→21:11)
[2021-03-24] MEDS ORDERED: Metoprolol Tartrate 5 mg VIAL 5 ml VIAL (1 mg/ml) IV ONE (13:54)
[2021-03-24] MEDS ORDERED: PEG 3000 GI LAVAGE 1 GALLON PO ONE (16:00)
[2021-03-25] MEDS ORDERED: Magnesium CITRATE LIQ 300 ML BTL PO ONE (06:00)
[2021-03-25 06:21] LABS: ABS Eosinophils 0.1 10^3/ul (0-0.6); ABS Lymphocytes 0.9 10^3/ul (1.0-4.8); ABS Monocytes 0.7 10^3/ul (0-0.8); ABS Neutrophils 4.5 10^3/ul (1.5-7.7); Eosinophil % 1.2 %; Hematocrit 32 % (42-52); Hemoglobin 10.6 g/dL (14.0-18.0); Lymphocyte % 14.4 %; Mean Corpuscular HGB Conc 33 g/dL (31-36); Mean Corpuscular Hemoglobin 31 pg (27-31); Mean Corpuscular Volume 94 fL (80-94); Nucleated Red Blood Cells % 0.1; Platelet Count 167 10^3/uL (150-450); Red Blood Count 3.43 10^6 /uL (4.18-5.48); Red Cell Distribution Width 20 % (10-15); White Blood Count 6.1 10^3/uL (3.5-10.8)
[2021-03-25 06:28] LABS: INR 1.85 (0.86-1.15)
[2021-03-25 06:34] LABS: Calcium 8.9 mg/dL (8.6-10.3); EGFR African American 54.4 (>60); Magnesium 1.6 mg/dL (1.9-2.7); Potassium 3.5 mmol/L (3.5-5.0)
[2021-03-25] MEDS: Furosemide 40 mg/4 ml IV VIAL IV SCH ×2 (07:53→08:22)
[2021-03-25] MEDS: Pantoprazole VIAL 40 MG VIAL IV SCH ×2 (07:53→21:34)
[2021-03-25] MEDS ORDERED: Magnesium Sulfate IV 3 GM in NS 0.9% 100 ml BAG 100 ML IVPB ONE (08:30)
[2021-03-25 09:32] LABS: NT-Pro B-Type Natriuretic Pep 2910 pg/mL (<=104)
[2021-03-25] MEDS ORDERED: fentaNYL 100 mcg/2 ml 50 MCG/ML VIAL ONE (10:45)
[2021-03-25] MEDS ORDERED: Midazolam 10 mg/10 ml VIAL 1 mg/ml 10 ml VIAL (10 mg) ONE (10:45)
[2021-03-25] MEDS ORDERED: ceFAZolin 1 GM ADVAN 1 GM ADDV.VIAL IVPB ONE (10:57)
[2021-03-26 06:00] LABS: Hematocrit 33 % (42-52); Hemoglobin 10.6 g/dL (14.0-18.0); Mean Corpuscular HGB Conc 33 g/dL (31-36); Mean Corpuscular Hemoglobin 31 pg (27-31); Mean Corpuscular Volume 94 fL (80-94); Mean Platelet Volume 9.4 fL (7.4-10.4); Platelet Count 164 10^3/uL (150-450); Red Blood Count 3.46 10^6 /uL (4.18-5.48); Red Cell Distribution Width 20 % (10-15); White Blood Count 5.9 10^3/uL (3.5-10.8)
[2021-03-26 06:21] LABS: Calcium 8.9 mg/dL (8.6-10.3); EGFR African American 41.9 (>60); EGFR Non-African American 34.6 (>60); Potassium 3.7 mmol/L (3.5-5.0)
[2021-03-26] MEDS: Pantoprazole VIAL 40 MG VIAL IV SCH ×2 (07:55→22:33)
[2021-03-26] MEDS: Furosemide 40 mg/4 ml IV VIAL IV SCH (07:55)
[2021-03-26 08:52] LABS: Magnesium 2.4 mg/dL (1.9-2.7)
[2021-03-26] MEDS: Mupirocin 2% OINT TUBE TOPICAL SCH (22:30)
[2021-03-27 07:33] LABS: Hematocrit 32 % (42-52); Hemoglobin 10.4 g/dL (14.0-18.0); Mean Corpuscular HGB Conc 33 g/dL (31-36); Mean Corpuscular Hemoglobin 31 pg (27-31); Mean Corpuscular Volume 94 fL (80-94); Mean Platelet Volume 8.9 fL (7.4-10.4); Platelet Count 141 10^3/uL (150-450); Red Blood Count 3.39 10^6 /uL (4.18-5.48); Red Cell Distribution Width 20 % (10-15); White Blood Count 5.1 10^3/uL (3.5-10.8)
[2021-03-27 07:47] LABS: Calcium 8.8 mg/dL (8.6-10.3); EGFR African American 36.2 (>60); EGFR Non-African American 29.9 (>60)
[2021-03-27] MEDS ORDERED: diPHENhydraMINE 25 mg TAB PO PRN (08:00)
[2021-03-27] MEDS: Pantoprazole VIAL 40 MG VIAL IV SCH (08:23)
[2021-03-27] MEDS ORDERED: Adenosine 3 MG/ML 2 ml VIAL (6 mg) ONE ×2 (08:47→08:53)
[2021-03-27] MEDS ORDERED: Furosemide 20 mg/2 ml IV VIAL ONE (08:50)
[2021-03-27] MEDS: Furosemide 40 mg/4 ml IV VIAL IV SCH (09:22)
[2021-03-27] MEDS ORDERED: Heparin DRIP 25,000 UNITS BAG 25,000 UNITS/500 ML BAG ONE (09:58)
[2021-03-27] MEDS ORDERED: HEPARIN IV SCH (10:00)
[2021-03-27] MEDS ORDERED: Heparin 5000 UNITS/ML 1 mL VIAL IV PRN ×2 (10:00→11:00)
[2021-03-27 10:06] LABS: Activated Partial Thrombo Time 28.8 seconds (26.0-38.0); INR 1.38 (0.86-1.15)
[2021-03-27] MEDS ORDERED: Heparin - STEMI 5,000 UNITS/ML 1 ml VIAL IV ONE (10:15)
[2021-03-27] MEDS: Heparin DRIP 25,000 UNITS BAG 25,000 UNITS/500 ML BAG IV SCH (10:15)
[2021-03-27] MEDS ORDERED: Midazolam 5 mg/5 ml VIAL 1 mg/ml 5 ml VIAL (5 mg) ONE (11:09)
[2021-03-27] MEDS ORDERED: fentaNYL 100 mcg/2 ml 50 MCG/ML VIAL ONE (11:09)
[2021-03-27] MEDS ORDERED: Flumazenil 0.5 mg/5 ml 0.1 MG/ML 5 ml VIAL ONE (11:09)
[2021-03-27] MEDS ORDERED: Naloxone 0.4 mg VIAL 0.4 mg/ml 1 ml VIAL ONE (11:09)
[2021-03-27] MEDS: Mupirocin 2% OINT TUBE TOPICAL SCH ×2 (12:13→20:23)
[2021-03-27 14:43] LABS: ABS Eosinophils 0.1 10^3/ul (0-0.6); ABS Lymphocytes 1.1 10^3/ul (1.0-4.8); ABS Monocytes 0.5 10^3/ul (0-0.8); Eosinophil % 1.2 %; Hematocrit 31 % (42-52); Lymphocyte % 19.2 %; Mean Corpuscular HGB Conc 33 g/dL (31-36); Mean Corpuscular Hemoglobin 31 pg (27-31); Mean Corpuscular Volume 95 fL (80-94); Mean Platelet Volume 9.1 fL (7.4-10.4); Platelet Count 150 10^3/uL (150-450); Red Blood Count 3.24 10^6 /uL (4.18-5.48); Red Cell Distribution Width 20 % (10-15); White Blood Count 5.7 10^3/uL (3.5-10.8)
[2021-03-27 15:25] LABS: EGFR African American 34.7 (>60); EGFR Non-African American 28.7 (>60)
[2021-03-28 05:32] LABS: ABS Lymphocytes 0.7 10^3/ul (1.0-4.8); ABS Monocytes 0.5 10^3/ul (0-0.8); Eosinophil % 0.7 %; Hematocrit 30 % (42-52); Hemoglobin 9.7 g/dL (14.0-18.0); Lymphocyte % 13.1 %; Mean Corpuscular HGB Conc 32 g/dL (31-36); Mean Corpuscular Hemoglobin 31 pg (27-31); Mean Corpuscular Volume 95 fL (80-94); Mean Platelet Volume 9.7 fL (7.4-10.4); Platelet Count 132 10^3/uL (150-450); Red Blood Count 3.16 10^6 /uL (4.18-5.48); Red Cell Distribution Width 20 % (10-15); White Blood Count 5.3 10^3/uL (3.5-10.8)
[2021-03-28 05:34] LABS: INR 1.35 (0.86-1.15)
[2021-03-28 05:57] LABS: Calcium 8.7 mg/dL (8.6-10.3); EGFR African American 34.5 (>60); EGFR Non-African American 28.5 (>60)
[2021-03-28] MEDS: Mupirocin 2% OINT TUBE TOPICAL SCH (08:11)
[2021-03-28] MEDS: Heparin DRIP 25,000 UNITS BAG 25,000 UNITS/500 ML BAG IV SCH (08:27)
[2021-03-28 11:13] LABS: Magnesium 2.1 mg/dL (1.9-2.7)
[2021-03-28 14:14] VITALS: BP 119/48
== END 2021-03-28 14:25 | disposition home or self-care (01) | DRG 291 ==
LOC: ED 11:26 → SUATTDRO 18:09 → MED 18:09
PROVIDERS: ADMIT Internal Medicine; ATTEND Internal Medicine

== ENCOUNTER 2023-08-31 05:31 | Observation (INO) ==
[2023-08-31 06:08] LABS: ABS Lymphocytes 0.7 10^3/uL (1.0-4.8); ABS Monocytes 0.8 10^3/uL (0.0-1.1); ABS Neutrophils 7.6 10^3/uL (1.5-7.6); Eosinophil % 0.5 %; Hemoglobin 10.6 g/dL (13.2-16.3); Lymphocyte % 7.8 %; Mean Corpuscular Hemoglobin 32.3 pg (27-33); Mean Corpuscular Hgb Conc 33.1 g/dL (31-36); Mean Corpuscular Volume 97.5 fL (80-97); Mean Platelet Volume 9.5 fL (7.5-11.2); Platelet Count 127 10^3/uL (150-450); Red Blood Count 3.29 10^6/uL (4.06-5.63); Red Cell Distribution Width 16.7 % (12-17); White Blood Count 9.2 10^3/uL (3.6-10.2)
[2023-08-31 06:25] LABS: INR 1.11 (0.83-1.13)
[2023-08-31 06:29] LABS: Albumin 3.8 g/dL (3.2-5.2); Albumin/Globulin Ratio 1.2 (1-3); Calcium 9.3 mg/dL (8.6-10.3); Creatinine, Serum 2.19 mg/dL (0.67-1.17); Globulin 3.3 g/dL (2-4); Potassium 4.7 mmol/L (3.5-5.0); Total Bilirubin 0.5 mg/dL (0.2-1.0); Total Protein 7.1 g/dL (6.4-8.9); eGFR CKD-EPI 30.8 (>60)
[2023-08-31] MEDS ORDERED: Furosemide 40 mg/4 ml IV VIAL IV SLOW PU ONE ×2 (06:57→10:25)
[2023-08-31 07:41] LABS: High Sensitivity Troponin 1 Hr 19 pg/mL (<20)
[2023-08-31 09:14] LABS: Uric Acid 8.7 mg/dL (4.4-7.6)
[2023-09-01 06:37] LABS: Calcium 8.8 mg/dL (8.6-10.3); Creatinine, Serum 1.79 mg/dL (0.67-1.17); Magnesium 1.9 mg/dL (1.9-2.7); Potassium 3.8 mmol/L (3.5-5.0); eGFR CKD-EPI 39.3 (>60)
[2023-09-01 10:38] VITALS: BP 138/54
== END 2023-09-01 12:05 | disposition home or self-care (01) ==
LOC: ED 05:31 → EDHOLD 08:03 → INTOOBSV 08:03 → MEDTELE 09:59
PROVIDERS: ADMIT Internal Medicine; ATTEND Internal Medicine

== ENCOUNTER 2023-09-12 08:56 | Observation (INO) ==
[2023-09-12 10:06] LABS: ABS Basophils 0.1 10^3/uL (0.0-0.1); ABS Lymphocytes 0.5 10^3/uL (1.0-4.8); ABS Monocytes 0.9 10^3/uL (0.0-1.1); ABS Neutrophils 16.4 10^3/uL (1.5-7.6); Eosinophil % 0.1 %; Hematocrit 35.4 % (38-53); Hemoglobin 11.5 g/dL (13.2-16.3); Lymphocyte % 2.5 %; Mean Corpuscular Hemoglobin 30.9 pg (27-33); Mean Corpuscular Hgb Conc 32.5 g/dL (31-36); Mean Corpuscular Volume 95.2 fL (80-97); Mean Platelet Volume 8.9 fL (7.5-11.2); Platelet Count 201 10^3/uL (150-450); Red Blood Count 3.72 10^6/uL (4.06-5.63); White Blood Count 17.9 10^3/uL (3.6-10.2)
[2023-09-12] MEDS: Azithromycin 500 mg/250 ml NS 500 MG/250 ML BAG IVPB SCH (17:22)
[2023-09-12] MEDS: cefTRIAXone 1 gm/50 mL D5W 1 GM/50 ML BAG IV SCH (18:43)
[2023-09-12] MEDS: Doxycycline 100 MG in NS 0.9% 250 ML BAG IVPB SCH (19:41)
[2023-09-13 07:34] LABS: ABS Eosinophils 0.1 10^3/uL (0.0-0.5); ABS Lymphocytes 0.8 10^3/uL (1.0-4.8); ABS Monocytes 0.9 10^3/uL (0.0-1.1); ABS Neutrophils 7.8 10^3/uL (1.5-7.6); Eosinophil % 0.7 %; Hematocrit 31.9 % (38-53); Hemoglobin 10.6 g/dL (13.2-16.3); Lymphocyte % 8.4 %; Mean Corpuscular Hemoglobin 31.3 pg (27-33); Mean Corpuscular Hgb Conc 33.1 g/dL (31-36); Mean Corpuscular Volume 94.5 fL (80-97); Mean Platelet Volume 8.7 fL (7.5-11.2); Platelet Count 190 10^3/uL (150-450); Red Blood Count 3.38 10^6/uL (4.06-5.63); Red Cell Distribution Width 15.8 % (12-17); White Blood Count 9.6 10^3/uL (3.6-10.2)
[2023-09-13 07:51] LABS: Albumin 3.1 g/dL (3.2-5.2); Calcium 8.7 mg/dL (8.6-10.3); Creatinine, Serum 1.6 mg/dL (0.67-1.17); Globulin 3.2 g/dL (2-4); Potassium 3.8 mmol/L (3.5-5.0); Total Bilirubin 0.4 mg/dL (0.2-1.0); Total Protein 6.3 g/dL (6.4-8.9); eGFR CKD-EPI 44.9 (>60)
[2023-09-14 09:40] VITALS: BP 153/45
== END 2023-09-14 11:20 | disposition home or self-care (01) ==
LOC: CHOA 08:56 → MED 08:56
PROVIDERS: ADMIT Internal Medicine Medical Oncology; ATTEND Internal Medicine Medical Oncology

== ENCOUNTER 2024-06-08 17:17 | Inpatient (IN) ==
[2024-06-08 18:23] LABS: INR 0.97 (0.85-1.14)
[2024-06-08 18:29] LABS: Hematocrit 19.3 % (38-53); Hemoglobin 6.4 g/dL (13.2-16.3); Mean Corpuscular Hemoglobin 34.4 pg (27-33); Mean Corpuscular Hgb Conc 33.2 g/dL (31-36); Mean Corpuscular Volume 103.7 fL (80-97); Platelet Count 190 10^3/uL (150-450); Red Blood Count 1.86 10^6/uL (4.06-5.63); Red Cell Distribution Width 16.5 % (12-17); White Blood Count 8.6 10^3/uL (3.6-10.2)
[2024-06-08 18:32] LABS: Albumin 3.7 g/dL (3.2-5.2); Albumin/Globulin Ratio 1.6 (1-3); Calcium 8.8 mg/dL (8.6-10.3); Creatinine, Serum 2.35 mg/dL (0.67-1.17); Globulin 2.3 g/dL (2-4); Potassium 4.4 mmol/L (3.5-5.0); Total Bilirubin 0.3 mg/dL (0.2-1.0); eGFR CKD-EPI 28.2 (>60)
[2024-06-08 18:49] LABS: ABS Eosinophils 0.1 10^3/uL (0.0-0.5); ABS Lymphocytes 1.4 10^3/uL (1.0-4.8); ABS Monocytes 0.6 10^3/uL (0.0-1.1); ABS Neutrophils 6.5 10^3/uL (1.5-7.6); ABS Nucleated RBC 0.03 10^3/ul; Anisocytosis 1+; Basophilic Stippling 2+; Eosinophil % 0.7 %; Hypochromasia 1+; Lymphocyte % 16.2 %; Macrocytosis 1+; Nucleated Red Blood Cells % 0.4 %/100WBC (0.0-0.8); Polychromasia 1+
[2024-06-08 19:38] LABS: High Sensitivity Troponin 1 Hr 22 pg/mL (<20)
[2024-06-08] MEDS: Pantoprazole VIAL 40 MG VIAL IV ONE (20:05)
[2024-06-09] MEDS ORDERED: Thiamine 100 MG/ML 2 ml VIAL (200 mg) IM ONE (01:46)
[2024-06-09 06:23] LABS: Hematocrit 23.1 % (38-53); Hemoglobin 7.8 g/dL (13.2-16.3); Mean Corpuscular Hemoglobin 32.6 pg (27-33); Mean Corpuscular Hgb Conc 33.6 g/dL (31-36); Mean Corpuscular Volume 97.1 fL (80-97); Mean Platelet Volume 8.9 fL (7.5-11.2); Platelet Count 134 10^3/uL (150-450); Red Blood Count 2.38 10^6/uL (4.06-5.63); Red Cell Distribution Width 17.8 % (12-17); White Blood Count 7.3 10^3/uL (3.6-10.2)
[2024-06-09 07:14] LABS: Calcium 8.5 mg/dL (8.6-10.3); Creatinine, Serum 2.04 mg/dL (0.67-1.17); Potassium 4.1 mmol/L (3.5-5.0); eGFR CKD-EPI 33.4 (>60)
[2024-06-09 07:40] LABS: ABS Eosinophils 0.1 10^3/uL (0.0-0.5); ABS Lymphocytes 0.8 10^3/uL (1.0-4.8); ABS Monocytes 0.5 10^3/uL (0.0-1.1); ABS Neutrophils 5.9 10^3/uL (1.5-7.6); ABS Nucleated RBC 0.03 10^3/ul; Anisocytosis 1+; Basophilic Stippling 2+; Eosinophil % 0.9 %; Hypochromasia 1+; Lymphocyte % 11.3 %; Nucleated Red Blood Cells % 0.5 %/100WBC (0.0-0.8); Polychromasia 1+
[2024-06-09] MEDS: Multivitamins/Minerals TAB PO SCH (10:44)
[2024-06-09] MEDS: Pantoprazole VIAL 40 MG VIAL IV SCH (10:46)
[2024-06-09] MEDS: Thiamine 100 MG/ML 2 ml VIAL (200 mg) IM ONE (13:48)
[2024-06-09] MEDS ORDERED: Lidocaine 2% PF 5 ML VIAL ONE (15:00)
[2024-06-09] MEDS ORDERED: fentaNYL 100 mcg/2 ml 50 MCG/ML VIAL ONE (15:00)
[2024-06-09] MEDS ORDERED: Midazolam 2 mg/2 ml VIAL 1 mg/ml 2 ml VIAL (2 mg) ONE (15:22)
[2024-06-10 07:30] LABS: ABS Eosinophils 0.1 10^3/uL (0.0-0.5); ABS Lymphocytes 0.7 10^3/uL (1.0-4.8); ABS Monocytes 0.5 10^3/uL (0.0-1.1); ABS Neutrophils 4.5 10^3/uL (1.5-7.6); ABS Nucleated RBC 0.01 10^3/ul; Eosinophil % 0.9 %; Hematocrit 22.7 % (38-53); Hemoglobin 7.7 g/dL (13.2-16.3); Lymphocyte % 12.3 %; Mean Corpuscular Hemoglobin 33.4 pg (27-33); Mean Corpuscular Hgb Conc 33.9 g/dL (31-36); Mean Corpuscular Volume 98.5 fL (80-97); Mean Platelet Volume 9.2 fL (7.5-11.2); Nucleated Red Blood Cells % 0.2 %/100WBC (0.0-0.8); Platelet Count 122 10^3/uL (150-450); White Blood Count 5.8 10^3/uL (3.6-10.2)
[2024-06-10 07:45] LABS: Calcium 8.6 mg/dL (8.6-10.3); Creatinine, Serum 1.73 mg/dL (0.67-1.17); Potassium 4.1 mmol/L (3.5-5.0); eGFR CKD-EPI 40.7 (>60)
[2024-06-10 12:27] LABS: Hematocrit 22.8 % (38-53); Hemoglobin 7.6 g/dL (13.2-16.3)
[2024-06-11 06:16] LABS: ABS Eosinophils 0.1 10^3/uL (0.0-0.5); ABS Lymphocytes 0.8 10^3/uL (1.0-4.8); ABS Monocytes 0.5 10^3/uL (0.0-1.1); ABS Neutrophils 4.3 10^3/uL (1.5-7.6); ABS Nucleated RBC 0.01 10^3/ul; Eosinophil % 1.3 %; Hematocrit 22.5 % (38-53); Hemoglobin 7.6 g/dL (13.2-16.3); Lymphocyte % 14.1 %; Mean Corpuscular Hemoglobin 33.6 pg (27-33); Mean Corpuscular Hgb Conc 33.5 g/dL (31-36); Mean Platelet Volume 8.7 fL (7.5-11.2); Nucleated Red Blood Cells % 0.1 %/100WBC (0.0-0.8); Platelet Count 119 10^3/uL (150-450); Red Blood Count 2.25 10^6/uL (4.06-5.63); Red Cell Distribution Width 19.3 % (12-17); White Blood Count 5.6 10^3/uL (3.6-10.2)
[2024-06-11 06:52] LABS: Calcium 8.4 mg/dL (8.6-10.3); Creatinine, Serum 1.79 mg/dL (0.67-1.17); Potassium 4.5 mmol/L (3.5-5.0)
[2024-06-11 09:45] VITALS: BP 142/62
== END 2024-06-11 13:05 | disposition home or self-care (01) | DRG 384 ==
LOC: ED 17:17 → EDHOLD 21:01 → SUATTDRO 21:01 → MED 06-09 03:14
PROVIDERS: ADMIT Internal Medicine; ATTEND Student in an Organized Health Care Education/Training Program
PROC: O.GIEGD (2024-06-09 14:20)